=== PATIENT | female | born 1955 | race Caucasian/White ===

== ENCOUNTER 2016-12-11 20:33 | Emergency (ER) | payer MEDICARE, OTHER ==
[2016-12-11 21:04] LABS: #Eosinphils 0.1 thou/uL (0.0-0.7); #Lymphocytes 1.8 thou/uL (1.20-3.40); #Monocytes 0.6 thou/uL (0.11-0.59); #Neutrophils 4.8 thou/uL (1.40-6.50); %Basophils 0.3 % (0.0-1.0); %Eosinophils 1.8 % (0.0-10.0); %Lymphocytes 24.6 % (21.0-51.0); %Monocytes 7.7 % (0.0-10.0); Hematocrit 40.5 % (36.0-47.0); Mean Platelet Volume 7.8 fL (7.4-10.4); Red Blood Cell (RBC) Count 4.17 mill/uL (4.20-5.40); White Blood Cell (WBC) Count 7.3 thou/uL (4.8-10.8)
[2016-12-11 21:18] LABS: ALT (SGPT) 69 U/L (8-55); AST (SGOT) 71 U/L (5-34); Acetaminophen Less than 6.0 mcg/mL (10.0-30.0); Alkaline Phosphatase 95 U/L (40-150); Anion Gap 16 mmol/L (10-20); BUN (Urea Nitrogen) 20 mg/dL (9.8-20.1); Bilirubin, Total 0.8 mg/dL (0.2-1.2); Calc. Creatinine Clearance 0 mL/min (70-130); Calcium 11.1 mg/dL (7.8-10.44); Carbon Dioxide 28 mmol/L (22-29); Chloride 103 mmol/L (98-107); Estimated GFR-MDRD 48; Globulin 2.5 g/dL (2.4-3.5); Protein, Total 6.6 g/dL (6.0-8.3); Salicylate Less than 8.0 mg/dL (15.0-30.0)
[2016-12-12 01:12] LABS: Bilirubin Negative (Negative); Blood, Urine Negative (Negative); Glucose, Urine (Dipstick) Negative (Negative); Ketone, Urine Trace mg/dL (Negative); Nitrite Negative (Negative); Protein, Urine (Dipstick) Negative (Neg-Trace); Urobilinogen 0.2 mg/dL (0.2-1.0)
[2016-12-12 01:18] LABS: Bacteria/HPF None Seen HPF (None Seen); Hyaline Casts/LPF NONE SEEN LPF (0-3 Hyaline); RBC/HPF 0-3 HPF (0-3); Squamous Epithelial 0-3 HPF (0-3)
[2016-12-12 01:20] LABS: Amphetamine Not Detected (NotDetected); Methadone Not Detected (NotDetected); Methamphetamine Not Detected (NotDetected)
== END 2016-12-12 04:21 | disposition home or self-care (01) ==
LOC: ERS 20:33
DX: F41.9 Anxiety disorder, unspecified (principal); I10 Essential (primary) hypertension; E78.5 Hyperlipidemia, unspecified; F31.9 Bipolar disorder, unspecified; Z79.899 Other long term (current) drug therapy
CPT/HCPCS: 36415; 80053; 80306; 80307; 81003; 81015; 82550; 84443; 85025; 87086; 93005

== ENCOUNTER 2017-11-12 20:48 | Observation (INO) | payer MEDICARE ==
[2017-11-12 21:38] LABS: #Eosinphils 0.1 thou/uL (0.0-0.7); #Lymphocytes 0.9 thou/uL (1.20-3.40); #Monocytes 0.6 thou/uL (0.11-0.59); #Neutrophils 5.1 thou/uL (1.40-6.50); %Basophils 0.6 % (0.0-1.0); %Eosinophils 1.8 % (0.0-10.0); %Lymphocytes 12.8 % (21.0-51.0); %Monocytes 9.3 % (0.0-10.0); %Neutrophils 75.5 % (42.0-75.0); Hemoglobin 13.7 g/dL (12.0-16.0); Mean Corpuscular HGB CONC 33.5 g/dL (32.0-36.0); Mean Corpuscular Hemoglobin 31.6 pg (27.0-31.0); Mean Corpuscular Volume 94.5 fL (78.0-98.0); Mean Platelet Volume 7.9 fL (7.4-10.4); Platelet Count 189 thou/uL (130-400); RBC Distribution Width 13.8 % (11.5-14.5); Red Blood Cell (RBC) Count 4.33 mill/uL (4.20-5.40); White Blood Cell (WBC) Count 6.7 thou/uL (4.8-10.8)
[2017-11-12 21:59] LABS: Acetaminophen Less than 6.0 mcg/mL (10.0-30.0); Alcohol Less than 10 mg/dL (Less than 10); Salicylate Less than 8.0 mg/dL (15.0-30.0)
[2017-11-12 22:01] LABS: ALT (SGPT) 35 U/L (8-55); AST (SGOT) 69 U/L (5-34); Albumin 4.2 g/dL (3.5-5.0); Alkaline Phosphatase 82 U/L (40-150); Anion Gap 12 mmol/L (10-20); BUN (Urea Nitrogen) 7 mg/dL (9.8-20.1); Bilirubin, Total 0.7 mg/dL (0.2-1.2); CK (CPK) 1673 U/L (29-168); Calc. Creatinine Clearance 0 mL/min (70-130); Calcium 10.4 mg/dL (7.8-10.44); Carbon Dioxide 27 mmol/L (22-29); Chloride 103 mmol/L (98-107); Estimated GFR-MDRD 83; Globulin 2.2 g/dL (2.4-3.5); Glucose 93 mg/dL (70-105); Protein, Total 6.4 g/dL (6.0-8.3); Sodium 139 mmol/L (136-145)
--- NOTE | 2017-11-12 22:38 | CT ---
HEAD CT NONCONTRAST: 11/12/17 COMPARISON: 04/01/16 INDICATION: Head injury, pain. FINDINGS: There is no acute intracranial hemorrhage, mass effect or midline shift. Ventricular system is normal in size. Calvarium is intact, without evidence of pneumocephalus. IMPRESSION: No acute intracranial hemorrhage or mass effect. POS: [facility]
[2017-11-12 22:47] LABS: Bilirubin Negative (Negative); Blood, Urine Negative (Negative); Clarity CLEAR (Clear); Glucose, Urine (Dipstick) Negative (Negative); Leukocyte Moderate (Negative); Nitrite Negative (Negative); Protein, Urine (Dipstick) Negative (Neg-Trace); Specific Gravity, Urine 1.009 (1.002-1.036); Urobilinogen 0.2 mg/dL (0.2-1.0)
[2017-11-12 22:49] LABS: Bacteria/HPF None Seen HPF (None Seen); Hyaline Casts/LPF 0-3 HYALINE CAST LPF (0-3 Hyaline); Pathc Cast-AUWi Flag 0.29 (0-2.49); Pregnancy Test - Urine (BHCG) Negative (Negative); Pregu Control Background? CLEAR/WHITE (CLR/WHITE); Pregu Control Bar Appear? YES (CONTROL BAR); RBC/HPF 0-3 HPF (0-3); Specific Gravity 1.009 (1.002-1.036); Squamous Epithelial 0-3 HPF (0-3)
[2017-11-12 22:56] LABS: Amphetamine Not Detected (NotDetected); Barbiturates Screen Not Detected (NotDetected); Benzodiazepine Screen Not Detected (NotDetected); Cocaine Metabolite Screen Not Detected (NotDetected); Medtox Control Line Valid? VALID (VALID); Medtox Reader # READER 1; Methadone Not Detected (NotDetected); Methamphetamine Not Detected (NotDetected); Opiate Screen Not Detected (NotDetected); Oxycodone Screen Not Detected (NotDetected); Phencyclidine (PCP) Not Detected (NotDetected); THC/Cannabinoid Screen Not Detected (NotDetected); Tricyclic Screen Not Detected (NotDetected)
[2017-11-13] MEDS ORDERED: Potassium Chloride 20 MEQ TAB ONE (00:29)
[2017-11-13] MEDS ORDERED: Acetaminophen 500 MG TAB ONE (00:29)
[2017-11-13] MEDS ORDERED: Potassium Chloride 20 MEQ in Premix Bag 1 BAG IVPB SCH (00:30)
[2017-11-13] MEDS ORDERED: Sodium Chloride 0.9% 1,000 ML IV SCH (03:00)
[2017-11-13 04:42] VITALS: BMI 26.0
[2017-11-13] MEDS ORDERED: traMADol HCl 50 MG TAB PO PRN (05:01)
[2017-11-13] MEDS ORDERED: Ondansetron HCl/PF 4 MG/2 ML Vial IVP PRN (07:16)
[2017-11-13] MEDS ORDERED: Chloraseptic Spray 180 ml Bottle PO PRN (07:16)
[2017-11-13] MEDS ORDERED: hydrALAZINE 20 MG/ML VIAL SLOW IVP PRN (07:16)
[2017-11-13] MEDS ORDERED: Loperamide HCl 2 MG CAP PO PRN (07:16)
[2017-11-13] MEDS ORDERED: Milk Of Magnesia 30 ML UDCUP PO PRN (07:16)
[2017-11-13] MEDS ORDERED: Mag-Al 1200 mg/1200 mg/30 ML UDCUP PO PRN (07:16)
[2017-11-13] MEDS ORDERED: Sodium Chloride 0.65% Nasal 44 ML BOT EA NARE PRN (07:16)
[2017-11-13] MEDS ORDERED: Senokot 8.6 MG TAB PO PRN (07:16)
[2017-11-13] MEDS ORDERED: Artificial Tears 18 DROP/0.9 ML EA EYE PRN (07:16)
[2017-11-13] MEDS ORDERED: Zolpidem Tartrate 5 MG TAB PO PRN (07:16)
[2017-11-13] MEDS ORDERED: Ondansetron ODT 4 MG TAB PO PRN (07:16)
[2017-11-13] MEDS ORDERED: Eucerin (Mineral Oil/Petrolatum,White) 30 gm Jar TOP PRN (07:16)
[2017-11-13] MEDS ORDERED: Diabetic Tussin 200 MG/10 ML UDCUP PO PRN (07:16)
[2017-11-13] MEDS ORDERED: Loratadine 10 MG TAB PO PRN (07:16)
[2017-11-13] MEDS ORDERED: DULoxetine 30 MG CAP PO SCH (09:00)
[2017-11-13] MEDS: 1/2 NS w/KCL 20 mEq 1,000 ML IV SCH ×2 (09:15→16:17)
[2017-11-13] MEDS: Famotidine 20 MG TAB PO SCH ×2 (09:16→21:16)
[2017-11-13] MEDS: Saccharomyces boulardii 250 MG CAP PO SCH (09:16)
[2017-11-13] MEDS: Acetaminophen 325 MG TAB PO PRN ×2 (10:10→16:16)
--- NOTE | 2017-11-13 10:29 | HP ---
PRIMARY CARE PHYSICIAN: Jonna Zimmerman PA-C. REASON FOR ADMISSION: Rhabdomyolysis. HISTORY OF PRESENT ILLNESS: A 62-year-old female who has underlying history of bipolar disorder as w ell as schizoaffective disorder. She is taking multiple psychiatric medications. Yesterday around 1 1:00 a.m., she fell down at home. She reports that she was in her laundry and she fell over laundry basket and she remained seated in laundry basket for 20 minutes, then she hit her head. She denies a ny loss of consciousness. She was having headaches since the fall. She did not have any nausea or v omiting. Subsequently, the patient was able to get off from the floor and in the noon time, she fell down again and twisted her ankle and subsequently in evening time, she fell down again and twisted h er knee. She was hurting in her knee and ankle on the right side, but she was able to walk without a ny problem. She was not staggering. She did not have any motor weakness. She did not have any sens ory symptoms. She denies any associated chest pain, palpitation, shortness of breath. This patient has underlying psychiatric problem and as per report, the patient has intermittently ana cidal ideation as well as homicidal ideation. She denied any suicidal ideation or homicidal ideation to me this morning, but she reports that she intermittently feels that way. Sometimes, she hears vo ice of her who . She denies any UTI symptoms, though her urinalysis did show find ing suggestive of UTI. The patient reports that about a week ago, she was feeling frequency, dysuria and she did not put any attention to it as well as she was not on any antibiotic therapy. She denie s any diarrhea. She denies any constipation, melena or hematochezia. At this point, the patient fee ls better after emergency room evaluation and treatment. In the emergency room, this patient had CT brain which did not show any acute process. The patient also currently denies any ankle pain or any knee pain on the right side. She was able to walk on the floor after admission. REVIEW OF SYSTEMS: The following complete review of systems was negative, unless otherwise mentioned in the HPI or below: Constitutional: Weight loss or gain, ability to conduct usual activities. Skin: Rash, itching. Eyes: Double vision, pain. ENT/Mouth: Nose bleeding, neck stiffness, pain, tenderness. Cardiovascular: Palpitations, dyspnea on exertion, orthopnea. Respiratory: Shortness of breath, wheezing, cough, hemoptysis, fever or night sweats. Gastrointestinal: Poor appetite, abdominal pain, heartburn, nausea, vomiting, constipation, or diarr hea. Genitourinary: Urgency, frequency, dysuria, nocturia. Musculoskeletal: Pain, swelling. Neurologic/Psychiatric: Anxiety, depression. Allergy/Immunologic: Skin rash, bleeding tendency. Please see my HPI for pertinent positive and negative. All other review of system reviewed and negat arun except as mentioned in the HPI. PAST MEDICAL HISTORY: The patient has history of diet controlled diabetes, hypertension, dyslipidemi a. PAST PSYCHIATRIC HISTORY: Anxiety, depression, bipolar disorder, schizoaffective disorder. Patient has history of inpatient psychiatric admission in [facility]. PAST SURGICAL HISTORY: Appendicectomy, tonsillectomy, cholecystectomy, hysterectomy, history of skin cancer removal, history of surgery for fractured neck. FAMILY HISTORY: The patient is . She lives at home by herself. Her niece is the medical [facility] of [employer] as well as her sister. Her daughter lives in [place]. No family history of coronary a rtery disease, stroke or cancer. SOCIAL HISTORY: The patient lives by herself at home. She smokes about half pack per day. She jono es any alcohol abuse. She denies any other illicit drug abuse. ALLERGIES: CODEINE, MORPHINE, PENICILLIN. CURRENT HOME MEDICATIONS: ProAir HFA 2 puffs q.6 hourly p.r.n., lithium carbonate 300 mg p.o. b.i.d. , risperidone 3 mg p.o. at bedtime, Zoloft 200 mg p.o. daily, trazodone 300 mg p.o. at bedtime, Cymba lta 30 mg p.o. daily. EMERGENCY ROOM COURSE: The patient is given IV fluid, potassium chloride and potassium chloride, K-D ur 40 mEq p.o. and Tylenol 1 gram. PHYSICAL EXAMINATION: VITAL SIGNS: Currently, blood pressure 137/66, pulse 93, respiratory rate 18, temperature 98.2, satu ration 94% on room air, weight 68 kilograms. GENERAL: Patient is currently alert, awake, no obvious acute distress. HEENT: Head: The patient does have right temporal region mild hematoma without any bleeding. Eyes: Pupils round, reactive to light. No nystagmus. ENT: Oropharynx within normal limits. Moist muco us membranes. No oral lesion, no pharyngeal erythema, no exudate. NECK: Supple, no JVD, no thyromegaly, no carotid bruit. LUNGS: Clear to auscultation without any rhonchi or rales. No wheezing. No accessory muscles of re spiration in use. CARDIAC: S1, S2 regular without any murmur. ABDOMEN: Soft, bowel sounds present. Mild discomfort noted in lower part. BACK: No CVA tenderness. EXTREMITIES: Upper extremity, passive movement of all joints are normal. Lower extremity, no edema. Good peripheral pulsation. MUSCULOSKELETAL: The patient's knee examination and ankle examination on the right side is completel y unremarkable. Over there, range of motion is completely normal. SIGNIFICANT LABORATORY DATA AND IMAGING: EKG showing incomplete right bundle branch block pattern, p rolonged QT interval. CT brain negative for any acute intracranial process. CBC: WBC 6.7, hemoglob in 13.7, platelet 189. BMP shows sodium 139, potassium 3.0, chloride 103, carbon dioxide 27, anion g ap 12, BUN 7, creatinine 0.72, glucose 93, calcium 10.4, magnesium 2.2. LFT: AST 69, ALT 35, alkali ne phosphatase 82, albumin 4.2. TSH 1.51. CK 1673. Urinalysis: Leukocyte esterase moderate. Preg blank test negative. Serum drug screen negative. Urine drug screen negative. [place] level 1.60. ASSESSMENT AND PLAN: 1. Frequent fall at home. Patient has temporal hematoma without any intracranial process, without a ny focal neurological deficit or any sequelae clinically on examination. The patient is currently as ymptomatic. The patient injured her ankle and knee on the right side and twisted, but without any cl inical abnormality. On examination, range of motion is completely normal. This patient will need at least one time physical therapy evaluation to see her gait. 2. Rhabdomyolysis, mild without any renal failure, most likely related with her fall and being in on e particular position for a few minutes. Patient is receiving IV fluid. We will repeat total CK lev el. 3. Hypokalemia, replaced in the Emergency Room. Patient will get IV fluid with potassium and will r epeat BMP. Her magnesium level is normal. 4. Asymptomatic bacteriuria. We will send urine culture. The patient does not have any obvious inf ection at this point. For benefit of doubt, we will consider Cipro upon discharge for 5 days. 5. [place] level is little bit high and that is why we will hold on lithium therapy today. 6. Anxiety and depression, bipolar disorder, and schizoaffective disorder. The patient will continu e all her depression medicine including risperidone 3 mg p.o. at bedtime, Zoloft 200 mg p.o. daily, t razodone 300 mg p.o. at bedtime and Cymbalta 30 mg p.o. daily. 7. Deep venous thrombosis prophylaxis not needed, because we are expecting discharge in 24 hours. 8. Gastrointestinal prophylaxis, Pepcid 20 mg p.o. b.i.d. CODE STATUS: The patient is FULL CODE. The patient's niece and the patient's sister is surrogate de cision maker. Disposition plan based on clinical course, likely 24 hours. Plan of care discussed with the patient in detail.
[2017-11-13] MEDS: Ketorolac Tromethamine 30 MG/ML VIAL IVP PRN ×2 (14:35→19:22)
[2017-11-13] MEDS ORDERED: traZODone HCl 150 MG TAB PO SCH ×2 (21:00)
[2017-11-13] MEDS ORDERED: risperiDONE 3 MG TAB PO SCH (21:00)
[2017-11-14] MEDS: Ketorolac Tromethamine 30 MG/ML VIAL IVP PRN ×2 (01:24→09:45)
[2017-11-14] MEDS: 1/2 NS w/KCL 20 mEq 1,000 ML IV SCH ×2 (01:26→09:50)
[2017-11-14 06:49] LABS: #Eosinphils 0.2 thou/uL (0.0-0.7); #Lymphocytes 1.1 thou/uL (1.20-3.40); #Monocytes 0.4 thou/uL (0.11-0.59); #Neutrophils 4.1 thou/uL (1.40-6.50); %Basophils 0.5 % (0.0-1.0); %Eosinophils 3.2 % (0.0-10.0); %Lymphocytes 18.7 % (21.0-51.0); %Monocytes 6.8 % (0.0-10.0); %Neutrophils 70.9 % (42.0-75.0); Hemoglobin 12.4 g/dL (12.0-16.0); Mean Corpuscular HGB CONC 32.3 g/dL (32.0-36.0); Mean Corpuscular Hemoglobin 31.4 pg (27.0-31.0); Mean Platelet Volume 8.2 fL (7.4-10.4); Platelet Count 160 thou/uL (130-400); RBC Distribution Width 13.6 % (11.5-14.5); Red Blood Cell (RBC) Count 3.97 mill/uL (4.20-5.40); White Blood Cell (WBC) Count 5.8 thou/uL (4.8-10.8)
[2017-11-14 07:15] LABS: ALT (SGPT) 28 U/L (8-55); AST (SGOT) 31 U/L (5-34); Albumin 3.7 g/dL (3.5-5.0); Alkaline Phosphatase 72 U/L (40-150); Anion Gap 10 mmol/L (10-20); BUN (Urea Nitrogen) 16 mg/dL (9.8-20.1); Bilirubin, Total 0.2 mg/dL (0.2-1.2); CK (CPK) 415 U/L (29-168); Calc. Creatinine Clearance 92 mL/min (70-130); Calcium 10.2 mg/dL (7.8-10.44); Carbon Dioxide 25 mmol/L (22-29); Chloride 109 mmol/L (98-107); Estimated GFR-MDRD 90; Globulin 1.9 g/dL (2.4-3.5); Glucose 102 mg/dL (70-105); Protein, Total 5.6 g/dL (6.0-8.3); Sodium 139 mmol/L (136-145)
[2017-11-14] MEDS: Saccharomyces boulardii 250 MG CAP PO SCH (09:49)
[2017-11-14] MEDS: Famotidine 20 MG TAB PO SCH (09:49)
--- NOTE | 2017-11-14 10:25 | DIS ---
DATE OF ADMISSION: 11/13/2017 DATE OF DISCHARGE: 11/14/2017 PRIMARY CARE PHYSICIAN: Jonna Zimmerman PA-C DISCHARGE DISPOSITION: Psych facility. PRIMARY DISCHARGE DIAGNOSES: 1. Rhabdomyolysis, improved. 2. Hypokalemia, corrected. 3. Asymptomatic urinary tract infection. SECONDARY DISCHARGE DIAGNOSES: Bipolar disorder, anxiety and depression, hypertension, dyslipidemia, tobacco abuse disorder. PRIMARY PROCEDURE/OPERATION: None. RADIOLOGICAL INVESTIGATION: CT brain is normal. SIGNIFICANT LABORATORY DATA: WBC 5.8, hemoglobin 12.4, platelet 160. Sodium 139, potassium 5.0, BUN 16, creatinine 0.67, CK 415. LFT normal. TSH 1.10. Urinalysis: Leukocyte esterase moderate. [place] drug screen negative. [place] level 1.60. Serum drug screen negative. Urine culture negative. DISCHARGE MEDICATIONS: ProAir HFA 2 puffs q.6 hourly p.r.n., lithium carbonate 300 mg p.o. b.i.d., r isperidone 3 mg p.o. at bedtime, Zoloft 200 mg p.o. daily, trazodone 300 mg p.o. at bedtime, Macrobid 100 mg p.o. b.i.d. for 7 days. CONTRAINDICATIONS: None. CODE STATUS: FULL CODE. INPATIENT CONSULTANTS: JOSE MIGUEL. ALLERGIES: CODEINE, MORPHINE, PENICILLIN. DISCHARGE PLAN: Post hospital, patient should go to inpatient psych facility for psych treatment. HOSPITAL COURSE: A 62-year-old female with above-mentioned medical problem who was admitted by or ye . Please see my HPI for further details. She was brought to the ER for psych evaluation. Kun maynard had routine blood test done which showed rhabdomyolysis. At home, she was having 3 falls and as sh e had minor bruits on her scalp without any intracranial process. She had minor twisting on ankle an d knee, but she did not have any local abnormality on physical examination and she was able to ambula te without any significant pain. The patient has intermittent suicidal ideation and this patient waters s have psychotic thoughts and that is why the patient needs inpatient psychiatric facility. Before anthony maynard send her to psych facility, we corrected her medical problem. Rhabdomyolysis is improved and her p otassium is corrected. She does have asymptomatic UTI and that is why she was given Rocephin while i n hospital. She was given Levaquin while in hospital. On discharge, we are changing to Macrobid. T he patient was given IV fluid. At this point, patient is medically cleared for discharge and [facility] wi ll be consulted and [facility] needs to find psych facility for her. The patient is seen and examined at bedside today. REVIEW OF SYSTEMS: Not reliable with this particular patient because of psychotic thoughts. PHYSICAL EXAMINATION: VITAL SIGNS: Currently, temperature 97.4, pulse 76, respiratory rate 20, blood pressure 167/74, weig ht 143 pounds. GENERAL: The patient is currently alert, awake, no obvious acute distress. HEAD: Normocephalic, atraumatic. EYES: Pupils round, reactive to light. Extraocular muscle intact. ENT: Oropharynx within normal limits. Moist mucous membranes, no oral lesion, no pharyngeal erythem a, no exudate. NECK: Supple, no JVD, no thyromegaly, no carotid bruit. No jugular venous distention. LUNGS: Clear to auscultation. CARDIAC: S1, S2 regular without any murmur. NEUROLOGIC: Nonfocal examination. ABDOMEN: Soft and benign without any suprapubic tenderness. Blood pressure was high by the time of discharge. I think it is related with ongoing IV fluid which we are stopping now and expected to improve blood pressure as well.
--- NOTE | 2017-11-14 10:57 | PDOC.PN ---
- Subjective Encounter Start Date: 11/14/17 Encounter Start Time: 07:45 -: old records requested/rev Patient seen and examined. No new complaints. No overnight events - Objective Resuscitation Status: Resuscitation Status FULL:Full Resuscitation MAR Reviewed: Yes Vital Signs & Weight: Vital Signs (12 hours) Temp Pulse Resp BP BP Pulse Ox 11/14/17 09:49 79 184/77 H 11/14/17 08:00 97.4 F L 76 27 H 183/84 H 90 L 11/14/17 07:00 97.4 F L 76 27 H 183/84 H 90 L 11/14/17 03:42 97.8 F 86 20 167/74 H Weight Admit Weight 142 lb 6.4 oz Weight 143 lb 9.6 oz I&O: 11/13/17 11/14/17 11/15/17 06:59 06:59 06:59 Intake Total 1113 4450 Output Total 400 1000 Balance 713 3450 Result Diagrams: 11/14/17 06:37 11/14/17 06:37 EKG Reviewed by me: Yes (nsr) Phys Exam - Physical Examination Constitutional: NAD HEENT: PERRLA, moist MMs, sclera anicteric Neck: no JVD, supple Respiratory: no wheezing, no rales, no rhonchi Cardiovascular: RRR, no significant murmur, no rub Gastrointestinal: soft, non-tender, no distention, positive bowel sounds Musculoskeletal: no edema, pulses present Neurological: non-focal, normal sensation, moves all 4 limbs Psychiatric: normal affect Skin: no rash, normal turgor Dx/Plan (1) Hypokalemia Code(s): E87.6 - HYPOKALEMIA Status: Acute (2) Rhabdomyolysis Code(s): M62.82 - RHABDOMYOLYSIS Status: Acute (3) UTI (urinary tract infection) Status: Acute (4) Bipolar disorder Code(s): F31.9 - BIPOLAR DISORDER, UNSPECIFIED Status: Chronic (5) Dyslipidemia Code(s): E78.5 - HYPERLIPIDEMIA, UNSPECIFIED Status: Chronic (6) Hypertension Code(s): I10 - ESSENTIAL (PRIMARY) HYPERTENSION Status: Chronic (7) Tobacco abuse Code(s): Z72.0 - TOBACCO USE Status: Chronic - Plan cont current plan of care, continue antibiotics * medication reviewed as below * symptomatic treatment * [facility] * DC IVF * macrobid on discharge Review of Systems - Review of Systems Eyes: negative: Pain, Vision Change, Conjunctivae Inflammation, Eyelid Inflammation, Redness, Other ENT: negative: Ear Pain, Ear Discharge, Nose Pain, Nose Discharge, Nose Congestion, Mouth Pain, Mouth Swelling, Throat Pain, Throat Swelling, Other Respiratory: negative: Cough, Dry, Shortness of Breath, Hemoptysis, SOB with Excertion, Pleuritic Pain, Sputum, Wheezing Cardiovascular: negative: chest pain, palpitations, orthopnea, paroxysmal nocturnal dyspnea, edema, light headedness, other Gastrointestinal: negative: Nausea, Vomiting, Abdominal Pain, Diarrhea, Constipation, Melena, Hematochezia, Other Genitourinary: negative: Dysuria, Frequency, Incontinence, Hematuria, Retention , Other Musculoskeletal: negative: Neck Pain, Shoulder Pain, Arm Pain, Back Pain, Hand Pain, Leg Pain, Foot Pain, Other Skin: negative: Rash, Lesions, Cecil, Bruising, Other - Medications/Allergies Allergies/Adverse Reactions: Allergies Allergy/AdvReac Type Severity Reaction Status Date / Time codeine Allergy Verified 11/13/17 03:29 morphine Allergy Verified 11/13/17 03:29 Penicillins Allergy Verified 11/13/17 03:29 Medications: Current Medications Acetaminophen (Tylenol) 650 mg PO Q4H PRN PRN Reason: Headache/Fever or Pain Last Admin: 11/13/17 16:16 Dose: 650 mg Al Hydroxide/Mg Hydroxide (Maalox) 30 ml PO Q6H PRN PRN Reason: Heartburn or Indigestion Artificial Tears (Tears Naturale) 0 drop EA EYE PRN PRN PRN Reason: Dry Eyes Famotidine (Pepcid) 20 mg PO BID TERE Last Admin: 11/14/17 09:49 Dose: 20 mg Guaifenesin (Robitussin Sf) 200 mg PO Q4H PRN PRN Reason: Cough Hydralazine HCl (Apresoline) 10 mg SLOW IVP Q4H PRN PRN Reason: Systolic BP > 180 Last Admin: 11/14/17 09:49 Dose: 10 mg Ketorolac Tromethamine (Toradol) 15 mg IVP Q6H PRN PRN Reason: Pain Stop: 11/18/17 10:06 Last Admin: 11/14/17 09:45 Dose: 15 mg Loperamide HCl (Imodium) 2 mg PO PRN PRN PRN Reason: Diarrhea/Loose Stools Loratadine (Claritin) 10 mg PO DAILYPRN PRN PRN Reason: Sinus Symptoms Magnesium Hydroxide (Milk Of Magnesium) 30 ml PO DAILYPRN PRN PRN Reason: Constipation Mineral Oil/White Petrolatum (Eucerin Cream) 0 gm TOP BIDPRN PRN PRN Reason: Dry Skin Ondansetron HCl (Zofran Odt) 4 mg PO Q6H PRN PRN Reason: Nausea/Vomiting Ondansetron HCl (Zofran) 4 mg IVP Q6H PRN PRN Reason: Nausea/Vomiting Phenol (Chloraseptic Ward 180 Ml Bot) 0 ml PO PRN PRN PRN Reason: Sore Throat Risperidone (Risperidone) 3 mg PO [facility] Last Admin: 11/13/17 21:16 Dose: 3 mg Saccharomyces Boulardii (Florastor) 250 mg PO DAILY [facility] Last Admin: 11/14/17 09:49 Dose: 250 mg Senna (Senokot) 2 tab PO HSPRN PRN PRN Reason: Constipation Sertraline HCl (Zoloft) 200 mg PO DAILY [facility] Last Admin: 11/14/17 09:49 Dose: 200 mg Sodium Chloride ([place] Nasal Ward 0.65%) 0 ml EA NARE QIDPRN PRN PRN Reason: Nasal Congestion Sodium Chloride (Flush - Normal Saline) 10 ml IVF Q12HR [facility] Last Admin: 11/14/17 09:50 Dose: 10 ml Sodium Chloride (Flush - Normal Saline) 10 ml IVF PRN PRN PRN Reason: Saline Flush Trazodone HCl (Desyrel) 300 mg PO [facility] Last Admin: 11/13/17 21:15 Dose: 300 mg Zolpidem Tartrate (Ambien) 5 mg PO HSPRN PRN PRN Reason: Insomnia
[2017-11-14 13:17] VITALS: BP 183/84; TEMP 98.7
== END 2017-11-14 13:19 | disposition home or self-care (01) ==
LOC: ERS 20:48 → 2NO 11-13 02:35
PROVIDERS: ADMIT Internal Medicine; ATTEND Internal Medicine
DX: M62.82 Rhabdomyolysis (principal); F25.0 Schizoaffective disorder, bipolar type; E11.9 Type 2 diabetes mellitus without complications; I10 Essential (primary) hypertension; E78.5 Hyperlipidemia, unspecified; E87.6 Hypokalemia; F41.8 Other specified anxiety disorders; N39.0 Urinary tract infection, site not specified; F17.210 Nicotine dependence, cigarettes, uncomplicated; Z79.899 Other long term (current) drug therapy; Z88.0 Allergy status to penicillin; Z88.5 Allergy status to narcotic agent; W19.XXXA Unspecified fall, initial encounter
CPT/HCPCS: 70450; 80053; 80178; 80306; 80307; 81025; 82550 ×2; 83735 ×2; 84443; 85025; 87086; 93005; 96361; 96365; 96366 ×3; 96367; 96375 ×2; 96376 ×2; 97139 ×2; 99285; G0378 ×2; 36415; 81003; 81015; A4216; J0360; J1885; J1956; J3480

== ENCOUNTER 2017-12-01 00:08 | Emergency (ER) | payer MEDICARE ==
[2017-12-01] MEDS ORDERED: Ketorolac Tromethamine 30 MG/ML VIAL ONE (01:16)
[2017-12-01] MEDS ORDERED: Albuterol Sulfate 2.5 mg/3 ml Neb ONE (01:21)
[2017-12-01 01:39] LABS: #Eosinphils 0.1 thou/uL (0.0-0.7); #Lymphocytes 1.3 thou/uL (1.20-3.40); #Monocytes 0.5 thou/uL (0.11-0.59); #Neutrophils 8.2 thou/uL (1.40-6.50); %Basophils 0.3 % (0.0-1.0); %Eosinophils 0.7 % (0.0-10.0); %Monocytes 5.3 % (0.0-10.0); %Neutrophils 80.7 % (42.0-75.0); Mean Corpuscular HGB CONC 34.3 g/dL (32.0-36.0); Mean Corpuscular Hemoglobin 32.1 pg (27.0-31.0); Mean Corpuscular Volume 93.5 fL (78.0-98.0); Mean Platelet Volume 7.7 fL (7.4-10.4); Platelet Count 222 thou/uL (130-400); RBC Distribution Width 13.3 % (11.5-14.5); Red Blood Cell (RBC) Count 4.36 mill/uL (4.20-5.40); White Blood Cell (WBC) Count 10.2 thou/uL (4.8-10.8)
[2017-12-01 01:41] LABS: Bilirubin Negative (Negative); Blood, Urine Negative (Negative); Clarity CLEAR (Clear); Glucose, Urine (Dipstick) Negative (Negative); Leukocyte Moderate (Negative); Nitrite Negative (Negative); Protein, Urine (Dipstick) Negative (Neg-Trace); Specific Gravity, Urine 1.004 (1.002-1.036); Urobilinogen 0.2 mg/dL (0.2-1.0)
[2017-12-01 01:44] LABS: Bacteria/HPF None Seen HPF (None Seen); Hyaline Casts/LPF 0-3 HYALINE CAST LPF (0-3 Hyaline); RBC/HPF 0-3 HPF (0-3); Squamous Epithelial None Seen HPF (0-3)
[2017-12-01 01:58] LABS: ALT (SGPT) 15 U/L (8-55); AST (SGOT) 14 U/L (5-34); Albumin 4.6 g/dL (3.5-5.0); Alkaline Phosphatase 85 U/L (40-150); Anion Gap 13 mmol/L (10-20); BUN (Urea Nitrogen) 11 mg/dL (9.8-20.1); Bilirubin, Total 0.3 mg/dL (0.2-1.2); Calc. Creatinine Clearance 0 mL/min (70-130); Calcium 10.8 mg/dL (7.8-10.44); Carbon Dioxide 24 mmol/L (22-29); Chloride 107 mmol/L (98-107); Estimated GFR-MDRD 84; Globulin 2.4 g/dL (2.4-3.5); Glucose 109 mg/dL (70-105); Lipase 25 U/L (8-78); Potassium 4.3 mmol/L (3.5-5.1); Sodium 140 mmol/L (136-145)
[2017-12-01] MEDS ORDERED: predniSONE 20 MG TAB ONE (03:11)
--- NOTE | 2017-12-01 08:47 | CT ---
PRELIMINARY REPORT/[facility]/EMERGENTY AFTER-HOURS PROCEDURE CT Abdomen and Pelvis Without Intravenous Contrast EXAM DATE/TIME: 12/01/2017 1:28 AM CLINICAL HISTORY: 62 years old, female; Pain; Abdominal pain; Generalized; Patient HX: Abd pain, dx with "kidney stones the size of half dollars" PT singing amazing agustín in bed, PT rates her pain as a 25/10. Manic bipol ar HX. PT states that she was dc from [facility] today per patient TECHNIQUE: Axial computed tomography images of the abdomen and pelvis without intravenous contrast. Coronal reformatted images were created and reviewed. COMPARISON: No relevant prior studies available. FINDINGS: Lower thorax: Calcified granuloma within the lingula. ABDOMEN: Liver: Normal. No mass. Gallbladder and bile ducts: Gallbladder not identified - surgical clips present in fossa. Pancreas: Normal. No ductal dilation. Spleen: Normal. No splenomegaly. Adrenals: Normal. No mass. Kidneys and ureters: Rounded 1 mm stones bilateral kidneys. No evidence of stones within the ureters or bladder. Stomach and bowel: Mild - moderate amount retained stool material throughout nondilated colon. Appendix: Sutures and surgical clips along the cecum- suspect appendectomy. PELVIS: Bladder: See Kidneys And Ureters Finding. Reproductive: Uterus is not identified. ABDOMEN and PELVIS: Intraperitoneal space: Small surgical clip by stomach. Bones/joints: Chronic degenerative changes of the lumbar spine. Soft tissues: Unremarkable. Vasculature: Chronic atherosclerotic calcification of the vasculature. Lymph nodes: Normal. No enlarged lymph nodes. IMPRESSION: 1. Bilateral renal nonobstructive stones. No evidence of obstructive uropathy or obstructive nephropa thy. 2. Findings suggest mild-moderate degree of constipation. Thank you for allowing us to participate in the care of your patient. Dictated and Authenticated by: Calvin Rodriguez MD 12/01/2017 2:01 AM Central Time ([place] & [place]) FINAL REPORT CT STONE PROTOCOL: Date: 12/01/17 IMPRESSION: I agree with the preliminary report provided by Devan. 1. There are tiny punctate nonobstructing stones within the kidneys. No ureteral calculus or hydrone phrosis is evident. 2. There is nodular contour of the liver, suspicious for mild cirrhosis. 3. Spleen is enlarged, measuring 14.7 cm. 4. Cholecystectomy. 5. Mild amount of retained stool within the colon. 6. Other chronic findings as above. POS: [facility]
--- NOTE | 2017-12-01 09:38 | RAD ---
PA AND LATERAL CHEST: Date: 12/01/17 INDICATION: Cough with abdominal pain. IMPRESSION: There is a calcified granuloma within the left lower lobe which is stable to a comparison from 2016. The lungs are mildly hyperinflated, but clear. Heart size is normal. No acute osseous abnormality is evident. No definite acute cardiopulmonary abnormality is evident. POS: [facility]
== END 2017-12-01 04:35 | disposition home or self-care (01) ==
LOC: ERS 00:08
DX: N39.0 Urinary tract infection, site not specified (principal); J45.901 Unspecified asthma with (acute) exacerbation; I10 Essential (primary) hypertension; E78.5 Hyperlipidemia, unspecified; F31.9 Bipolar disorder, unspecified; F17.210 Nicotine dependence, cigarettes, uncomplicated; E11.9 Type 2 diabetes mellitus without complications; Z79.4 Long term (current) use of insulin; Z79.899 Other long term (current) drug therapy
CPT/HCPCS: 36415; 71046; 74176; 80053; 81003; 81015; 83690; 85025; 85379; 87086; 93005; 94640; J1885; J7506; J7611; J7620

== ENCOUNTER 2017-12-01 14:43 | Observation (INO) | payer MEDICARE ==
[2017-12-01 15:45] LABS: Bilirubin Negative (Negative); Blood, Urine Negative (Negative); Clarity CLEAR (Clear); Glucose, Urine (Dipstick) Negative (Negative); Leukocyte Moderate (Negative); Nitrite Negative (Negative); Protein, Urine (Dipstick) 30 mg/dL (Neg-Trace); Urobilinogen 0.2 mg/dL (0.2-1.0)
[2017-12-01 15:49] LABS: Bacteria/HPF None Seen HPF (None Seen); Hyaline Casts/LPF 0-3 HYALINE CAST LPF (0-3 Hyaline); Pathc Cast-AUWi Flag 0.29 (0-2.49); RBC/HPF 0-3 HPF (0-3); Squamous Epithelial 0-3 HPF (0-3); WBC/HPF 21-50 HPF (0-3)
[2017-12-01] MEDS ORDERED: predniSONE 20 MG TAB ONE (16:08)
[2017-12-01 16:23] LABS: #Lymphocytes 0.7 thou/uL (1.20-3.40); #Monocytes 0.5 thou/uL (0.11-0.59); #Neutrophils 6.1 thou/uL (1.40-6.50); %Eosinophils 0.3 % (0.0-10.0); %Lymphocytes 9.8 % (21.0-51.0); %Monocytes 6.7 % (0.0-10.0); %Neutrophils 83.2 % (42.0-75.0); Mean Corpuscular HGB CONC 33.8 g/dL (32.0-36.0); Mean Corpuscular Volume 94.7 fL (78.0-98.0); Mean Platelet Volume 7.9 fL (7.4-10.4); Platelet Count 224 thou/uL (130-400); RBC Distribution Width 13.5 % (11.5-14.5); Red Blood Cell (RBC) Count 4.36 mill/uL (4.20-5.40); White Blood Cell (WBC) Count 7.4 thou/uL (4.8-10.8)
[2017-12-01 16:48] LABS: ALT (SGPT) 13 U/L (8-55); AST (SGOT) 13 U/L (5-34); Albumin 4.4 g/dL (3.5-5.0); Alkaline Phosphatase 82 U/L (40-150); Anion Gap 12 mmol/L (10-20); BUN (Urea Nitrogen) 13 mg/dL (9.8-20.1); Bilirubin, Total 0.3 mg/dL (0.2-1.2); Calc. Creatinine Clearance 0 mL/min (70-130); Calcium 11.1 mg/dL (7.8-10.44); Carbon Dioxide 25 mmol/L (22-29); Chloride 105 mmol/L (98-107); Estimated GFR-MDRD 76; Globulin 2.6 g/dL (2.4-3.5); Glucose 98 mg/dL (70-105); Lipase 21 U/L (8-78); Magnesium 2.4 mg/dL (1.6-2.6); Potassium 4.2 mmol/L (3.5-5.1); Sodium 138 mmol/L (136-145)
[2017-12-01 16:52] LABS: Troponin I Less than 0.010 ng/mL (< 0.028)
--- NOTE | 2017-12-01 16:54 | RAD ---
AP VIEW OF THE CHEST: 12/01/17 INDICATION: Cough. COMPARISON: Prior exam dated 07/11/17. IMPRESSION: There is stable chronic lung changes. Calcified granuloma within the left lower lobe is stable. Heart size is normal appearing. No acute osseous abnormalities noted POS: [facility]
[2017-12-01] MEDS ORDERED: Labetalol HCl 100 MG/20 ML VIAL ONE (20:23)
[2017-12-01 21:01] VITALS: BMI 26.2
[2017-12-01] MEDS ORDERED: Ondansetron ODT 4 MG TAB SL PRN (21:23)
[2017-12-01] MEDS ORDERED: Acetaminophen 325 MG TAB PO PRN (21:23)
[2017-12-01] MEDS ORDERED: Ondansetron HCl/PF 4 MG/2 ML Vial IVP PRN (21:23)
[2017-12-01] MEDS ORDERED: traMADol HCl 50 MG TAB PO PRN (21:27)
[2017-12-01] MEDS ORDERED: traZODone HCl 150 MG TAB PO PRN (21:29)
[2017-12-01] MEDS ORDERED: Lorazepam 0.5 MG TAB PO PRN (21:34)
[2017-12-01] MEDS ORDERED: Dextrose 50% Abboject 50 ML SYRINGE SLOW IVP PRN (21:35)
[2017-12-01] MEDS ORDERED: HumaLOG 300 UNITS/3 ML VIAL SC PRN (21:35)
[2017-12-01] MEDS ORDERED: Dextrose 5% in Water 1,000 ML IV PRN (21:35)
[2017-12-02] MEDS ORDERED: Lorazepam 2 MG/ML VIAL SLOW IVP SCH (00:30)
[2017-12-02] MEDS ORDERED: predniSONE 20 MG TAB PO SCH (08:00)
[2017-12-02] MEDS ORDERED: risperiDONE 1 MG TAB PO SCH (09:00)
[2017-12-02] MEDS ORDERED: Lidocaine 5% Patch TD SCH (09:00)
[2017-12-02] MEDS: oxyCODONE/Acetaminophen 5 mg/325 mg Tablet PO PRN ×2 (09:31→16:00)
[2017-12-02] MEDS: hydrOXYzine 25 MG TAB PO SCH ×2 (10:16→17:50)
--- NOTE | 2017-12-02 11:08 | PDOC.EVN ---
Event Note - Event Note Event Note: h&p [id number]
--- NOTE | 2017-12-02 11:42 | RAD ---
PA AND LATERAL CHEST: Date: 12/01/17 COMPARISON: Prior day's study. HISTORY: Chest pain. Cough. FINDINGS: Heart size and mediastinum are within normal limits. Lungs are clear of any infiltrative process. No rib fractures are identified. No pleural effusions. There are arthritic changes of the spine. IMPRESSION: No active intrathoracic disease. POS: [facility]
--- NOTE | 2017-12-02 11:47 | HP ---
CHIEF COMPLAINT: Nausea. HISTORY OF PRESENT ILLNESS: This is a 62-year-old female with a known history of bipolar disorder wh o was recently discharged from [facility] approximately 2 days prior to admiss ion at our facility. The patient tells me that she has multiple issues that are going on with her th at needed to be managed in our facility, namely that she has urinary tract infection, pneumonia, and had fallen with a lot of musculoskeletal pain that was not evaluated while she was at the psychiatric hospital. The patient also initially complained in the emergency department of nausea; however, sub sequently also complained of hunger and was able to tolerate 3 boxed meals without difficulty, vomiti ng or continued nausea. At the time of my evaluation, the patient tells me the above and also informs me that she will have h er cigarette that she has everyday. REVIEW OF SYSTEMS: As per HPI. Constitutional: The patient endorses fevers and chills for the last 2 weeks and tells me that she had a temperature of 106 two days ago. Cardiovascular: No overt ches t pain or pressure. No palpitations. Respiratory: The patient tells me that she has been "having t rouble breathing" due to her pneumonia. Gastrointestinal: Endorses nausea, although has not been ob served to have any. Denies any abdominal pain, diarrhea or constipation. Genitourinary: Denies any dysuria. Musculoskeletal: Complains of pain in various places that are not consistent. Please note that the patient is overall a very, very poor historian and I doubt the accuracy of revie w of systems as described above. PAST MEDICAL HISTORY: As per HPI. 1. Bipolar disorder. 2. Diet controlled diabetes. 3. Hypertension. 4. Hyperlipidemia. 5. Chronic obstructive pulmonary disease. 6. Status post appendectomy. 7. Status post tonsillectomy 8. Status post cholecystectomy. 9. Status post hysterectomy. 10. Status post skin cancer removal several times. 10. Status post surgery for a "fractured neck." HOME MEDICATIONS: The patient's home list currently includes the following: Trazodone 200 mg p.o. a t bedtime, risperidone 4 mg p.o. daily, prednisone 20 mg p.o. daily, hydroxyzine 100 mg p.o. t.i.d., sertraline 200 mg p.o. daily, [place] carbonate 300 mg p.o. q.a.m. SOCIAL HISTORY: Active pack tobacco use. Denies any alcohol use. Denies any illicit drug use. Kalli arently, she has a daughter in [place] who is her active medical power of patent prosecution attorney. PHYSICAL EXAMINATION: GENERAL: The patient is awake, alert, conversant, in no acute distress, seated in the hospital bed, states that she feels "cold". HEENT: Normocephalic, atraumatic. Equal ocular motions are intact, moist mucous membranes. CARDIOVASCULAR: S1, S2. No murmurs, rubs or gallops. Pulses 2+ bilateral upper extremities, no pit ting pedal edema. RESPIRATORY: Reasonable air movement. No conversational dyspnea. No wheezes, rales or rhonchi. ABDOMEN: Positive bowel sounds, soft, nontender to palpation. MUSCULOSKELETAL: Moving all 4 extremities equally. Able to ambulate with a walker. No assistance o therwise. LABORATORY DATA AND IMAGING: WBC 7.4, hemoglobin 14.0, hematocrit 41.3, platelets 224. Sodium 138, potassium 4.2, chloride 105, bicarbonate 25, BUN 13, creatinine 0.77, glucose 98. Lactic acid 0.8, c alcium 11.1, magnesium 2.4, total bilirubin 0.3, AST 13, ALT 13, alkaline phosphatase 82. Troponin l ess than 0.01. Total protein 7.0, albumin 4.4, lipase 21. UA is significant for 30 of protein, mode rate leukoesterase, 21-50 WBCs without any urine bacteria seen. ASSESSMENT AND PLAN: This is a 62-year-old female complaining of nausea and other multiple complaint s. 1. Nausea appears to have self resolved as the patient is tolerating an oral diet. 2. Recent history supposedly of pneumonias. I suspect more likely that the patient had chronic obst ructive pulmonary disease exacerbation. We will continue her prednisone in a taper fashion. The pat chrissy is currently satting well on room air, does not appear to have an acute exacerbation at this poi nt in time. We will obtain a chest x-ray. 3. Urinary tract infection with a UA that is not particularly remarkable. Urine culture is pending. Empiric Levaquin has been given. 4. Bipolar disorder. I suspect this is likely the largest active issue for the patient. The patien t tells me that her medications have been recently adjusted and that her bipolar disease is "in remis sukumar". 5. Active tobacco use. I have reviewed with the patient that it is not advised for her to continue any tobacco usage while she has chronic obstructive pulmonary disease, particularly she is currently hospitalized. 6. Musculoskeletal pain. We will go ahead and image. The patient does have complaints of neck and shoulder pain status post a fall for which she is unable to give further details. We will also utili ze anti-inflammatories, tramadol and lidocaine patch as needed to help with pain control. Of note, t he patient appears to be ambulating without significant difficulty using her walker, which appears to be her baseline. 7. Activity as tolerated. 8. Deep venous thrombosis prophylaxis with enoxaparin.
--- NOTE | 2017-12-02 11:58 | RAD ---
CERVICAL SPINE SERIES 3 VIEWS: Date: 12/01/17 HISTORY: Neck injury. FINDINGS: Vertebral bodies are normal in height. The C7 vertebral body is not well visualized on this study. Th ere is an old appearing spinous process injury of C7. There is no soft tissue swelling. Facets are in normal alignment. IMPRESSION: No evidence of fracture. C7 is not well visualized on this exam. POS: [facility]
[2017-12-02 16:09] VITALS: BP 134/73; TEMP 97.3
[2017-12-02] MEDS ORDERED: traZODone HCl 50 MG TAB PO SCH (21:00)
[2017-12-02] MEDS ORDERED: Lidocaine Patch Removal 1 EACH TOP SCH (21:00)
--- NOTE | 2017-12-08 19:12 | EKG ---
Test Reason : Blood Pressure : / mmHG Vent. Rate : 100 BPM Atrial Rate : 100 BPM P-R Int : 174 ms QRS Dur : 096 ms QT Int : 374 ms P-R-T Axes : 072 034 071 degrees QTc Int : 482 ms Normal sinus rhythm Possible Left atrial enlargement Incomplete right bundle branch block Prolonged QT Abnormal ECG Confirmed by YULIET CHIN M.D. ([id number]), publication editor KAVIN FLYNN ([id number]) on 12/08/2017 7:12:00 PM Referred By: Confirmed By:YULIET CHIN M.D.
== END 2017-12-02 19:25 | disposition home or self-care (01) ==
LOC: ERS 14:43 → 3SE 18:34 → T4-A 20:47
PROVIDERS: ADMIT Internal Medicine; ATTEND Internal Medicine
DX: R11.0 Nausea (principal); J44.9 Chronic obstructive pulmonary disease, unspecified; N39.0 Urinary tract infection, site not specified; F31.9 Bipolar disorder, unspecified; E78.5 Hyperlipidemia, unspecified; I10 Essential (primary) hypertension; E11.9 Type 2 diabetes mellitus without complications; F17.200 Nicotine dependence, unspecified, uncomplicated; Z88.0 Allergy status to penicillin; Z88.5 Allergy status to narcotic agent; Z79.899 Other long term (current) drug therapy
CPT/HCPCS: 71045; 71046; 72040; 74176; 80053 ×2; 82962; 83605; 83690; 83735; 84484; 85025 ×2; 85379; 87040; 87086; 93005; 94640; 96361; 96365; 96374; 96375 ×2; 99285; 99406; G0378 ×2; 36415; 36416; 81003; 81015; J1885; J1956; J2060; J7506; J7611; J7620

== ENCOUNTER 2017-12-03 13:39 | Observation (INO) | payer MEDICARE ==
[2017-12-03 14:19] LABS: #Lymphocytes 0.5 thou/uL (1.20-3.40); #Monocytes 0.5 thou/uL (0.11-0.59); #Neutrophils 9.5 thou/uL (1.40-6.50); %Basophils 0.3 % (0.0-1.0); %Eosinophils 0.1 % (0.0-10.0); %Lymphocytes 5.1 % (21.0-51.0); %Monocytes 4.5 % (0.0-10.0); Hemoglobin 13.3 g/dL (12.0-16.0); Mean Corpuscular HGB CONC 34.4 g/dL (32.0-36.0); Mean Corpuscular Volume 93.2 fL (78.0-98.0); Mean Platelet Volume 7.8 fL (7.4-10.4); Platelet Count 184 thou/uL (130-400); RBC Distribution Width 13.6 % (11.5-14.5); Red Blood Cell (RBC) Count 4.15 mill/uL (4.20-5.40); White Blood Cell (WBC) Count 10.6 thou/uL (4.8-10.8)
[2017-12-03 14:38] LABS: ALT (SGPT) 13 U/L (8-55); AST (SGOT) 15 U/L (5-34); Albumin 4.2 g/dL (3.5-5.0); Alkaline Phosphatase 82 U/L (40-150); Anion Gap 14 mmol/L (10-20); BUN (Urea Nitrogen) 15 mg/dL (9.8-20.1); Bilirubin, Total 0.2 mg/dL (0.2-1.2); Calc. Creatinine Clearance 0 mL/min (70-130); Calcium 10.2 mg/dL (7.8-10.44); Carbon Dioxide 23 mmol/L (22-29); Chloride 104 mmol/L (98-107); Estimated GFR-MDRD 79; Globulin 2.4 g/dL (2.4-3.5); Glucose 139 mg/dL (70-105); Potassium 3.7 mmol/L (3.5-5.1); Protein, Total 6.6 g/dL (6.0-8.3); Sodium 137 mmol/L (136-145)
--- NOTE | 2017-12-03 14:42 | RAD ---
AP VIEW OF THE CHEST: INDICATION: History of cough. COMPARISON: Prior exam dated 12/01/17. FINDINGS: Chronic lung changes are stable. Areas of subsegmental volume loss are now present within the right lung base. Calcified granuloma is seen within the left lower lobe. No acute osseous abnormality is evident. IMPRESSION: Areas of subsequently atelectasis right lower lobe. The remainder of the examination is unchanged fr om the prior. POS: [facility]
--- NOTE | 2017-12-03 16:09 | CT ---
CT BRAIN NONCONTRAST: HISTORY: A 62-year-old female with acute head trauma from fall. FINDINGS: There is no midline shift or any other mass effect. There is no evidence of acute intracranial hemor rhage, large cortical infarct, obstructive hydrocephalus, or extraaxial fluid collection. The calvar ium is intact. IMPRESSION: No acute intracranial findings. jn [] POS: [facility]
--- NOTE | 2017-12-03 16:10 | CT ---
CT CERVICAL SPINE NONCONTRAST: HISTORY: A 62-year-old female status post acute cervical trauma from fall. FINDINGS: There are no jumped or perched facets. There is no evidence of acute fracture. The vertebral body h eights are maintained. There is no prevertebral soft tissue swelling. IMPRESSION: No evidence of acute fracture or acute traumatic subluxation. yuki [] POS: [facility]
[2017-12-03 18:08] LABS: Lactic Acid 1.4 mmol/L (0.5-2.2)
[2017-12-03 18:09] LABS: Bilirubin Negative (Negative); Blood, Urine Negative (Negative); Clarity CLEAR (Clear); Glucose, Urine (Dipstick) Negative (Negative); Leukocyte Trace (Negative); Nitrite Negative (Negative); Protein, Urine (Dipstick) Negative (Neg-Trace); Urobilinogen 0.2 mg/dL (0.2-1.0)
[2017-12-03 18:10] LABS: Bacteria/HPF None Seen HPF (None Seen); Hyaline Casts/LPF 0-3 HYALINE CAST LPF (0-3 Hyaline); RBC/HPF 0-3 HPF (0-3); Squamous Epithelial None Seen HPF (0-3); WBC/HPF 0-3 HPF (0-3)
[2017-12-03 18:12] LABS: Specific Gravity, Urine 1.004 (1.002-1.036)
[2017-12-03 18:22] LABS: Amphetamine Not Detected (NotDetected); Barbiturates Screen Not Detected (NotDetected); Benzodiazepine Screen Not Detected (NotDetected); Cocaine Metabolite Screen Not Detected (NotDetected); Medtox Control Line Valid? VALID (VALID); Medtox Reader # READER 1; Methadone Not Detected (NotDetected); Methamphetamine Not Detected (NotDetected); Opiate Screen Not Detected (NotDetected); Oxycodone Screen Not Detected (NotDetected); Phencyclidine (PCP) Not Detected (NotDetected); THC/Cannabinoid Screen Not Detected (NotDetected); Tricyclic Screen Not Detected (NotDetected)
[2017-12-03] MEDS ORDERED: Ondansetron HCl/PF 4 MG/2 ML Vial IVP PRN (19:45)
[2017-12-03] MEDS ORDERED: Acetaminophen 325 MG TAB PO PRN (19:45)
[2017-12-03] MEDS ORDERED: Dextrose 5% in Water 1,000 ML IV PRN (19:45)
[2017-12-03] MEDS ORDERED: Dextrose 50% Abboject 50 ML SYRINGE SLOW IVP PRN (19:45)
[2017-12-03] MEDS ORDERED: HumaLOG 300 UNITS/3 ML VIAL SC PRN ×2 (19:45)
[2017-12-03] MEDS: Famotidine 20 MG TAB PO SCH (20:04)
[2017-12-03] MEDS: HYDROcodone/Acetaminophen 5/325 mg Tablet PO PRN (20:04)
[2017-12-03 20:28] LABS: CKMB 4.6 ng/mL (0-6.6)
[2017-12-03 20:41] LABS: Troponin I Less than 0.010 ng/mL (< 0.028)
[2017-12-03] MEDS: hydrOXYzine Pamoate 25 mg Capsule PO SCH (21:16)
[2017-12-03] MEDS: Lithium Carbonate 150 MG CAP PO SCH (21:16)
[2017-12-03] MEDS: traZODone HCl 50 MG TAB PO SCH (21:16)
[2017-12-03 22:18] VITALS: BMI 25.7
[2017-12-04 04:27] LABS: #Lymphocytes 0.9 thou/uL (1.20-3.40); #Monocytes 0.7 thou/uL (0.11-0.59); #Neutrophils 6.5 thou/uL (1.40-6.50); %Basophils 0.2 % (0.0-1.0); %Eosinophils 0.4 % (0.0-10.0); %Lymphocytes 11.3 % (21.0-51.0); %Monocytes 9.1 % (0.0-10.0); %Neutrophils 79.1 % (42.0-75.0); Hemoglobin 12.7 g/dL (12.0-16.0); Mean Corpuscular Hemoglobin 31.3 pg (27.0-31.0); Mean Corpuscular Volume 94.9 fL (78.0-98.0); Mean Platelet Volume 8.2 fL (7.4-10.4); Platelet Count 204 thou/uL (130-400); RBC Distribution Width 13.6 % (11.5-14.5); Red Blood Cell (RBC) Count 4.06 mill/uL (4.20-5.40); White Blood Cell (WBC) Count 8.2 thou/uL (4.8-10.8)
[2017-12-04 04:38] LABS: Hemoglobin A1c 4.7 % (4.0-6.0)
[2017-12-04] MEDS: HYDROcodone/Acetaminophen 5/325 mg Tablet PO PRN ×3 (04:45→20:14)
[2017-12-04 04:56] LABS: Anion Gap 12 mmol/L (10-20); BUN (Urea Nitrogen) 18 mg/dL (9.8-20.1); Calc. Creatinine Clearance 78 mL/min (70-130); Calcium 10.4 mg/dL (7.8-10.44); Carbon Dioxide 27 mmol/L (22-29); Chloride 109 mmol/L (98-107); Estimated GFR-MDRD 76; Glucose 87 mg/dL (70-105); Magnesium 2.3 mg/dL (1.6-2.6); Potassium 4.2 mmol/L (3.5-5.1); Sodium 144 mmol/L (136-145)
[2017-12-04 04:59] LABS: CKMB 1.9 ng/mL (0-6.6); Troponin I Less than 0.010 ng/mL (< 0.028)
[2017-12-04] MEDS: Lidocaine 5% Patch TD SCH (08:08)
[2017-12-04] MEDS: Famotidine 20 MG TAB PO SCH ×2 (08:10→20:13)
[2017-12-04] MEDS: risperiDONE 1 MG TAB PO SCH (08:10)
[2017-12-04] MEDS: predniSONE 20 MG TAB PO SCH (08:11)
[2017-12-04] MEDS: Lithium Carbonate 150 MG CAP PO SCH ×2 (08:12→20:13)
[2017-12-04] MEDS: hydrOXYzine Pamoate 25 mg Capsule PO SCH ×3 (08:12→20:13)
[2017-12-04] MEDS: Ondansetron ODT 4 MG TAB PO PRN (14:06)
[2017-12-04] MEDS: traZODone HCl 50 MG TAB PO SCH (20:13)
[2017-12-04] MEDS: Lidocaine Patch Removal TOP SCH (20:20)
[2017-12-05] MEDS: HYDROcodone/Acetaminophen 5/325 mg Tablet PO PRN ×4 (00:09→20:59)
--- NOTE | 2017-12-05 04:11 | CON ---
DATE OF CONSULTATION: 12/04/2017 HISTORY OF PRESENT ILLNESS: Meliza Bustos is a 62-year-old white female with a longstanding history of bipolar disorder. She states she was just discharged from [facility] 2 days prior to this admission. She states she has had cough productive of sputum. Two weeks ago, she also stated that she had a fall. She also had a fall recently, tripping over a laundry basket, hitting her head and stated that she was knocked out afterwards. She denies any chest discomfort. She denies any shortness of breath. She came to the hospital for nausea, but was able to eat in the emergency room without any nausea or vomiting. Last evening, she had an episode of bradycardia with a 3-second pause. She states that at that time she was in bed and has been having continual pain from nephrolithiasis. PAST MEDICAL HISTORY: Diabetes, hypertension, hyperlipidemia, COPD, bipolar disorder, nephrolithiasis. OPERATIONS: Tonsils, appendix, cholecystectomy, hysterectomy, surgery for "fractured neck." MEDICATIONS: At home include Vistaril 100 mg t.i.d., lidocaine patch 2 patches daily, lithium carbonate 300 mg q.a.m., prednisone 20 daily, risperidone 4 mg daily, sertraline 200 mg daily, Desyrel 200 mg at bedtime. ALLERGIES: PENICILLIN, MORPHINE, CODEINE. SOCIAL HISTORY: She smokes. PHYSICAL EXAMINATION: VITAL SIGNS: Blood pressure 183/87, pulse of 98. HEENT: PERRL. NECK: Supple. LUNGS: Chest is clear. CARDIAC: S1 and S2 normal, without any S3 or S4, or murmurs. ABDOMEN: Normal bowel sounds, without tenderness. EXTREMITIES: Revealed no clubbing, cyanosis, or edema. NEUROLOGIC: Grossly intact. SKIN: Warm and dry. LABORATORY DATA: EKG reveals normal sinus rhythm with left axis deviation. CBC is unremarkable. D-dimer 0.33. Sodium 137, potassium 3.7, chloride 104, carbon dioxide 23, BUN 13, creatinine 0.75. AST and ALT are normal. Cardiac enzymes were unremarkable. IMPRESSION: 1. Sinus arrhythmia with three second sinus pause. It does not sound like she was symptomatic with this. It could be due to vasovagal reaction from her constant pain from nephrolithiasis. 2. Multiple falls; however, I am uncertain if she had true syncope with those. 3. Hypertension. 4. Hyperlipidemia. 5. Bipolar disorder. 6. Smoker. PLAN: Echocardiogram will be performed to assess left ventricular function. The patient will continue to be monitored. Consideration should be given to 30- day monitor at the time of discharge if she does not have any further significant arrhythmias. Certainly, beta blocking agents should be avoided as well as calcium channel blockers that can affect AV conduction. MTDD
[2017-12-05] MEDS: hydrOXYzine Pamoate 25 mg Capsule PO SCH ×3 (08:17→20:59)
[2017-12-05] MEDS: Lidocaine 5% Patch TD SCH (08:17)
[2017-12-05] MEDS: predniSONE 20 MG TAB PO SCH (08:18)
[2017-12-05] MEDS: Lithium Carbonate 150 MG CAP PO SCH ×2 (08:18→20:59)
[2017-12-05] MEDS: risperiDONE 1 MG TAB PO SCH (08:18)
[2017-12-05] MEDS: Famotidine 20 MG TAB PO SCH ×2 (08:19→20:59)
[2017-12-05] MEDS: Ondansetron ODT 4 MG TAB PO PRN ×2 (09:05→15:20)
--- NOTE | 2017-12-05 14:18 | PDOC.PN ---
- Subjective Encounter Start Date: 12/04/17 Encounter Start Time: 15:00 no change overnigh,t pt probalby at baseline. Cardiolgy eval pending, had a 3 sec pause overnight while sleeping. No F/C, no n/V/d/c, no syncope or presyncope Pt walking downstairs repeatedly - Objective Resuscitation Status: Resuscitation Status FULL:Full Resuscitation MAR Reviewed: Yes Vital Signs & Weight: Vital Signs (12 hours) Temp Pulse Resp BP BP Pulse Ox 12/05/17 10:50 98.8 F 84 20 127/60 92 L 12/05/17 08:00 97.6 F 94 16 12/05/17 07:38 98.5 F 92 20 123/59 L 96 12/05/17 04:00 97.6 F 94 16 147/67 H 93 L Weight Weight 140 lb 6.4 oz I&O: 12/04/17 12/05/17 12/06/17 06:59 06:59 06:59 Intake Total 680 1330 Output Total 500 300 Balance 180 1030 Result Diagrams: 12/04/17 03:30 12/04/17 03:30 Additional Labs: Accuchecks 12/05/17 12/05/17 12/04/17 11:26 06:07 20:15 POC Glucose 131 H 100 125 H 12/04/17 16:18 POC Glucose 121 H Phys Exam - Physical Examination Constitutional: NAD HEENT: PERRLA, moist MMs, sclera anicteric, oral pharynx no lesions Neck: no nodes, no JVD, supple, full ROM Respiratory: no wheezing, no rales, no rhonchi, clear to auscultation bilateral Cardiovascular: RRR, no significant murmur, no rub Gastrointestinal: soft, non-tender, no distention, positive bowel sounds Musculoskeletal: edema present Neurological: non-focal, normal sensation, moves all 4 limbs Lymphatic: no nodes Deviation from normal: flat affect, mild delusions, no hallucinations Skin: no rash, normal turgor, cap refill <2 seconds Dx/Plan (1) Syncope and collapse Code(s): R55 - SYNCOPE AND COLLAPSE Status: Acute (2) Bipolar disorder Code(s): F31.9 - BIPOLAR DISORDER, UNSPECIFIED Status: Chronic Qualifiers: Active/Remission status: currently active Current bipolar episode type: mixed Current episode severity: unspecified Qualified Code(s): F31.60 - Bipolar disorder, current episode mixed, unspecified (3) Dyslipidemia Code(s): E78.5 - HYPERLIPIDEMIA, UNSPECIFIED Status: Chronic (4) Hypertension Code(s): I10 - ESSENTIAL (PRIMARY) HYPERTENSION Status: Chronic Qualifiers: Hypertension type: essential hypertension Qualified Code(s): I10 - Essential (primary) hypertension (5) Tobacco abuse Code(s): Z72.0 - TOBACCO USE Status: Chronic - Plan cont current plan of care * .follow up on cardiology recommendations. continue to observe on tele for now
[2017-12-05] MEDS: traZODone HCl 50 MG TAB PO SCH (21:00)
[2017-12-05] MEDS: Lidocaine Patch Removal TOP SCH (21:01)
[2017-12-06] MEDS: HYDROcodone/Acetaminophen 5/325 mg Tablet PO PRN ×3 (01:12→18:48)
[2017-12-06] MEDS: hydrOXYzine Pamoate 25 mg Capsule PO SCH ×2 (08:52→15:16)
[2017-12-06] MEDS: Lidocaine 5% Patch TD SCH (08:52)
[2017-12-06] MEDS: Famotidine 20 MG TAB PO SCH (08:53)
[2017-12-06] MEDS: risperiDONE 1 MG TAB PO SCH (08:53)
[2017-12-06] MEDS: predniSONE 20 MG TAB PO SCH (08:53)
[2017-12-06] MEDS: Lithium Carbonate 150 MG CAP PO SCH (08:55)
--- NOTE | 2017-12-06 12:16 | DIS ---
DATE OF ADMISSION: 12/03/2017 DATE OF DISCHARGE: 12/06/2017 PRIMARY CARE PHYSICIAN: None. DISCHARGE DIAGNOSES: 1. Sinus arrhythmia. 2. Syncope and collapse. 3. Bipolar disorder, marginally controlled. 4. Hyperlipidemia. 5. Ongoing tobacco abuse. 6. Chronic back pain. CONSULTATIONS: Cardiology. PROCEDURES: A 30-day monitor placement. HISTORY AND PHYSICAL: Ms. Bustos is a 62-year-old female who was admitted by me on 12/03/2017 a fter being found in her neighbor's yard having passed out unresponsive. EMS brought her to the emerg ency department for evaluation. Here, her workup was negative and we were called for admission. HOSPITAL COURSE: The patient was seen and examined by me in the Emergency Department, she was placed in observation and started on telemetry monitoring. Serial cardiac biomarkers were obtained and wer e negative. Cardiology was consulted. Overnight 12/03/2017 to 12/04/2017, the patient had a 3-4 second pause on her telemetry without any i ntervention while she was sleeping. She was asymptomatic. She was followed by Cardiology and underw ent echocardiogram. This ordered on 12/04/2017, performed on 12/05/2017. Echo was unremarkable. She had no further pauses and was set up with a 30-day monitor and cleared fo r discharge by Cardiology today 12/06/2017. The patient was seen and examined on the day of discharge. Discharge plan and disposition discussed with patient at the bedside. DISCHARGE MEDICATIONS: 1. Hydroxyzine 100 mg p.o. t.i.d. 2. Lidocaine patch 2 patch transdermal daily. 3. [place] carbonate 300 mg p.o. q.a.m. and 600 mg p.o. q.p.m. 4. Prednisone 20 mg daily to resume. 5. Risperidone 4 mg daily. 6. Zoloft 200 mg daily. 7. Trazodone 200 mg p.o. at bedtime. DISCHARGE ACTIVITY: As tolerated. DISCHARGE DIET: Heart healthy diet recommended. DISCHARGE CONDITION: Stable. DISPOSITION: The patient has been discharged to home via private vehicle. Followup appointment with Dr. Meyers in 3-4 weeks after a 30-day monitoring.
[2017-12-06 15:15] VITALS: BP 143/64; TEMP 98.9
--- NOTE | 2017-12-08 20:30 | EKG ---
Test Reason : FALL Blood Pressure : / mmHG Vent. Rate : 099 BPM Atrial Rate : 099 BPM P-R Int : 152 ms QRS Dur : 098 ms QT Int : 368 ms P-R-T Axes : 031 004 025 degrees QTc Int : 472 ms * Pediatric ECG Analysis * Normal sinus rhythm Left axis deviation Borderline Prolonged QT Confirmed by OKSANA BANGURA, HILARIO ([id number]), slot editor KAVIN FLYNN ([id number]) on 12/08/2017 8:30:16 PM Referred By: EITAN Confirmed By:HILARIO GANDHI MD
== END 2017-12-06 20:10 | disposition home or self-care (01) ==
LOC: ERS 13:39 → 2SW 16:30
PROVIDERS: ADMIT Internal Medicine Infectious Disease; ATTEND Internal Medicine Infectious Disease
DX: I49.8 Other specified cardiac arrhythmias (principal); R55 Syncope and collapse; F31.9 Bipolar disorder, unspecified; E78.5 Hyperlipidemia, unspecified; G89.29 Other chronic pain; M54.9 Dorsalgia, unspecified; F17.210 Nicotine dependence, cigarettes, uncomplicated; Z79.899 Other long term (current) drug therapy
CPT/HCPCS: 70450; 71045; 72125; 80048; 80053; 80306; 82553 ×2; 82962 ×4; 83036; 83605; 83735; 84484 ×2; 85025 ×2; 85379; 87040; 93005; 93306; 96365; 96366; 97116; 97139 ×6; 99285; 99406; G0378 ×3; G8978; G8979; G8980; G8987; G8988; G8989; 36415; 36416; 81003; 81015; 96361; J1956; J7506; Q0162; Q0177

== ENCOUNTER 2017-12-09 14:40 | Emergency (ER) | payer MEDICARE | END 2017-12-09 15:13 | disposition home or self-care (01) | LOC: ERS 14:40 | DX: Z00.00 Encounter for general adult medical examination without abnormal findings (principal); M79.89 Other specified soft tissue disorders; E78.5 Hyperlipidemia, unspecified; F31.9 Bipolar disorder, unspecified; F17.210 Nicotine dependence, cigarettes, uncomplicated; Z79.899 Other long term (current) drug therapy | CPT/HCPCS: 99281 ==

== ENCOUNTER 2017-12-10 03:16 | Emergency (ER) | payer MEDICARE ==
[2017-12-10 04:59] LABS: #Eosinphils 0.3 thou/uL (0.0-0.7); #Lymphocytes 1.3 thou/uL (1.20-3.40); #Monocytes 0.6 thou/uL (0.11-0.59); #Neutrophils 6.4 thou/uL (1.40-6.50); %Basophils 0.2 % (0.0-1.0); %Lymphocytes 15.1 % (21.0-51.0); %Monocytes 7.2 % (0.0-10.0); %Neutrophils 74.5 % (42.0-75.0); Hemoglobin 12.8 g/dL (12.0-16.0); Mean Corpuscular Hemoglobin 31.6 pg (27.0-31.0); Mean Corpuscular Volume 95.8 fL (78.0-98.0); Mean Platelet Volume 8.3 fL (7.4-10.4); Platelet Count 174 thou/uL (130-400); RBC Distribution Width 14.3 % (11.5-14.5); Red Blood Cell (RBC) Count 4.04 mill/uL (4.20-5.40); White Blood Cell (WBC) Count 8.6 thou/uL (4.8-10.8)
[2017-12-10 05:04] LABS: ALT (SGPT) 13 U/L (8-55); AST (SGOT) 9 U/L (5-34); Albumin 3.7 g/dL (3.5-5.0); Alkaline Phosphatase 75 U/L (40-150); Anion Gap 12 mmol/L (10-20); BUN (Urea Nitrogen) 8 mg/dL (9.8-20.1); Bilirubin, Total 0.3 mg/dL (0.2-1.2); CK (CPK) 41 U/L (29-168); Calc. Creatinine Clearance 0 mL/min (70-130); Calcium 9.4 mg/dL (7.8-10.44); Carbon Dioxide 23 mmol/L (22-29); Chloride 112 mmol/L (98-107); Estimated GFR-MDRD 78; Glucose 88 mg/dL (70-105); Potassium 3.6 mmol/L (3.5-5.1); Protein, Total 5.7 g/dL (6.0-8.3); Sodium 143 mmol/L (136-145)
[2017-12-10 05:07] LABS: CKMB 2.7 ng/mL (0-6.6); Troponin I Less than 0.010 ng/mL (< 0.028)
[2017-12-10] MEDS ORDERED: Ibuprofen 200 MG TAB ONE (06:04)
[2017-12-10 06:35] LABS: Bilirubin Negative (Negative); Blood, Urine Negative (Negative); Clarity CLEAR (Clear); Glucose, Urine (Dipstick) Negative (Negative); Leukocyte Moderate (Negative); Nitrite Negative (Negative); Protein, Urine (Dipstick) Negative (Neg-Trace); Specific Gravity, Urine 1.006 (1.002-1.036); Urobilinogen 0.2 mg/dL (0.2-1.0)
[2017-12-10 06:39] LABS: Hyaline Casts/LPF 0-3 HYALINE CAST LPF (0-3 Hyaline); Squamous Epithelial 0-3 HPF (0-3)
[2017-12-10 07:17] LABS: RBC/HPF 0-3 HPF (0-3)
[2017-12-10 07:18] LABS: Bacteria/HPF Rare-Few HPF (None Seen)
== END 2017-12-10 07:23 | disposition home or self-care (01) ==
LOC: ERS 03:16
DX: M54.9 Dorsalgia, unspecified (principal); M25.532 Pain in left wrist; E11.9 Type 2 diabetes mellitus without complications; I10 Essential (primary) hypertension; E78.5 Hyperlipidemia, unspecified; F31.9 Bipolar disorder, unspecified; F17.210 Nicotine dependence, cigarettes, uncomplicated; Z79.899 Other long term (current) drug therapy; Z79.4 Long term (current) use of insulin; Z71.6 Tobacco abuse counseling
CPT/HCPCS: 36415; 80053; 81003; 81015; 82553; 84484; 85025; 93005; 99406

== ENCOUNTER 2017-12-30 17:29 | Inpatient (IN) | payer MEDICARE ==
[2017-12-30 18:33] LABS: #Eosinphils 0.2 thou/uL (0.0-0.7); #Lymphocytes 0.5 thou/uL (1.20-3.40); #Monocytes 0.4 thou/uL (0.11-0.59); #Neutrophils 11.4 thou/uL (1.40-6.50); %Eosinophils 1.3 % (0.0-10.0); %Monocytes 3.5 % (0.0-10.0); %Neutrophils 91.2 % (42.0-75.0); Hemoglobin 13.3 g/dL (12.0-16.0); Mean Corpuscular HGB CONC 31.5 g/dL (32.0-36.0); Mean Corpuscular Hemoglobin 28.9 pg (27.0-31.0); Mean Corpuscular Volume 91.9 fL (78.0-98.0); Mean Platelet Volume 8.4 fL (7.4-10.4); Platelet Count 313 thou/uL (130-400); Red Blood Cell (RBC) Count 4.58 mill/uL (4.20-5.40); White Blood Cell (WBC) Count 12.5 thou/uL (4.8-10.8)
[2017-12-30 18:45] LABS: ALT (SGPT) Less than 7 U/L (8-55); AST (SGOT) 5 U/L (5-34); Albumin 3.4 g/dL (3.5-5.0); Alkaline Phosphatase 91 U/L (40-150); Anion Gap 30 mmol/L (10-20); BUN (Urea Nitrogen) 123 mg/dL (9.8-20.1); Bilirubin, Total 0.4 mg/dL (0.2-1.2); Calc. Creatinine Clearance 0 mL/min (70-130); Calcium 9.6 mg/dL (7.8-10.44); Chloride 103 mmol/L (98-107); Estimated GFR-MDRD 6; Globulin 2.2 g/dL (2.4-3.5); Glucose 98 mg/dL (70-105); Lipase 32 U/L (8-78); Potassium 4.2 mmol/L (3.5-5.1); Protein, Total 5.6 g/dL (6.0-8.3); Sodium 137 mmol/L (136-145)
[2017-12-30 18:48] LABS: CKMB 1.6 ng/mL (0-6.6); Troponin I Less than 0.010 ng/mL (< 0.028)
[2017-12-30 18:48] LABS: Acetaminophen Less than 6.0 mcg/mL (10.0-30.0); Alcohol Less than 10 mg/dL (Less than 10); CK (CPK) 20 U/L (29-168); Salicylate Less than 8.0 mg/dL (15.0-30.0)
[2017-12-30 18:48] LABS: Carbon Dioxide 8 mmol/L (22-29)
--- NOTE | 2017-12-30 19:05 | RAD ---
RADIOGRAPH CHEST 1 VIEW: HISTORY: 62-year-old hypotensive female unable to ambulate. FINDINGS: There are no air space densities, pulmonary edema, pneumothorax, or cardiomegaly. The lateral costop hrenic angles are sharp. IMPRESSION: No acute cardiopulmonary findings. yuki POS: [facility]
[2017-12-30] MEDS ORDERED: Acetaminophen 325 MG TAB PO PRN (19:23)
[2017-12-30] MEDS ORDERED: Guaifenesin DM 100-10/5 ML UDCUP PO PRN (19:23)
[2017-12-30] MEDS ORDERED: Ondansetron HCl/PF 4 MG/2 ML Vial IVP PRN (19:23)
[2017-12-30] MEDS ORDERED: Sodium Bicarbonate 150 MEQ in Dextrose 5% in Water 1,000 ML IV SCH (19:30)
[2017-12-30 19:47] LABS: Bilirubin Moderate (Negative); Blood, Urine Trace (Negative); Glucose, Urine (Dipstick) Negative (Negative); Leukocyte Negative (Negative); Nitrite Negative (Negative); Protein, Urine (Dipstick) 100 mg/dL (Neg-Trace); Urobilinogen 0.2 mg/dL (0.2-1.0)
[2017-12-30 19:54] LABS: Clarity CLOUDY (Clear)
[2017-12-30 19:56] LABS: Specific Gravity, Urine 1.025 (1.002-1.036)
[2017-12-30 19:57] LABS: Bacteria/HPF 3+ HPF (None Seen); Squamous Epithelial 0-3 HPF (0-3); Yeast-All Forms 1+ HPF (None Seen)
[2017-12-30 19:58] LABS: Hyaline Casts/LPF 0-3 HYALINE CAST LPF (0-3 Hyaline); Other Casts/LPF 0-3 FINELY GRAN LPF (0-3 Hyaline)
[2017-12-30 20:00] LABS: Amphetamine Not Detected (NotDetected); Barbiturates Screen Not Detected (NotDetected); Benzodiazepine Screen Not Detected (NotDetected); Cocaine Metabolite Screen Detected (NotDetected); Medtox Control Line Valid? VALID (VALID); Medtox Reader # READER 4; Methadone Not Detected (NotDetected); Methamphetamine Not Detected (NotDetected); Opiate Screen Not Detected (NotDetected); Oxycodone Screen Not Detected (NotDetected); Phencyclidine (PCP) Detected (NotDetected); THC/Cannabinoid Screen Not Detected (NotDetected); Tricyclic Screen Not Detected (NotDetected)
--- NOTE | 2017-12-30 20:04 | CT ---
CT BRAIN WITHOUT CONTRAST: History: Altered mental status. FINDINGS: Comparison is made with exam of 12-03-17. No evidence of acute infarct, hemorrhage, midline shift, or abnormal extraaxial fluid collections are seen. The ventricular size is normal and the basilar cisterns patent. The bony calvarium is intact. There is mild mucosal disease in the paranasal sinuses. IMPRESSION: No CT evidence of acute intracranial process. POS: [facility]
[2017-12-30] MEDS ORDERED: Cefepime 2 GM VIAL ONE (21:20)
[2017-12-30 21:36] LABS: Base Excess-Venous -15.8 mmol/L (0 (+/- 2.5)); Bicarbonate (HCO3v) 12.4 mmol/L (1.0-85.0); CO2 Tension (PvCO2) 36.7 mmHg (41.0-51.0); Calcium, Ionized 1.31 mmol/L (1.12-1.32); Hemoglobin - Calc 12.1 g/dL (12.0-18.0); O2 Tension (PvO2) 37.4 mmHg (35.0-45.0); Potassium 4.5 mmol/L (3.4-4.7); T. Carbon Dioxide 13.5 mmol/L (1.0-85.0); pH (Venous) 7.136 (7.35-7.45); vO2 Saturation-calc 55.1 % (94-98)
--- NOTE | 2017-12-31 00:02 | HP ---
DATE OF ADMISSION: 12/30/2017 REASON FOR ADMISSION: Acute renal failure, severe metabolic acidosis, possible sepsis, severe deconditioning and acute encephalopathy. HISTORY OF PRESENT ILLNESS: Please note majority of this history is obtained by talking to ER physician, Dr. Calvo, as the patient is not fully oriented. Per ER records and physician, the patient's nondenominational members called her multiple times when she did not turn up to nondenominational this morning. They in turn called EMS to do a welfare check on her. When EMS arrived, the patient was on the floor and was covered with feces. She was not oriented. She was very lethargic and could not get up. She was brought to emergency room here. On arrival here, the patient was found to have had a BUN of 123, creatinine of 7.24 with serum bicarbonate of 8. The patient currently states she has had nausea, vomiting and was unable to eat. She also has had diarrhea. She says all of these have been going on for 2 weeks or so. The patient was discharged from the hospital on the 6th of this month with normal creatinine. PAST MEDICAL AND SURGICAL HISTORY: History of bipolar disorder, likely schizophrenia, diet controlled diabetes, hypertension, dyslipidemia, COPD, appendectomy, tonsillectomy, cholecystectomy, hysterectomy, skin cancer removed , femoral fracture. CURRENT MEDICATIONS: Please note, the patient cannot recall any of her medication. From her recent discharge, the patient is on hydroxyzine 100 mg 3 times daily, lithium 300 mg p.o. q.a.m., prednisone 20 mg daily, risperidone 4 mg daily, sertraline 200 mg daily, trazodone 200 mg p.o. at bedtime, Lidoderm transdermal patch 5% patch daily. ALLERGIES: Allergic to CODEINE, MORPHINE and PENICILLIN. PERSONAL HISTORY: Smokes half pack a day. Does not abuse alcohol or drugs. The patient states she stays alone. FAMILY HISTORY: Both parents have had stroke and are . Mother in her 60s apparently. Again, the patient is a very poor historian. CODE STATUS: Full. Power of precinct captain is her daughter, Ms. Singh. Per prior records, she apparently lives in [place]. REVIEW OF SYSTEMS: Cannot be obtained as the patient is not oriented. PHYSICAL EXAMINATION: GENERAL: The patient is a 62-year-old female who is currently lethargic and is not oriented. VITAL SIGNS: Blood pressure 96/34, pulse 101 per minute, respiratory rate 24 per minute, temperature 97.2 degrees Fahrenheit, saturating 93% on room air. NECK: Supple. No elevated JVD. HEENT: Extraocular muscles intact. Pupils reacting to light. Oral cavity, mucous membranes are dry. Tongue is coated. CARDIOVASCULAR: S1, S2 heard. Regular rhythm. RESPIRATORY: Air entry 1+ bilateral. Scattered rhonchi plus. No rales. ABDOMEN: Soft. Bowel sounds heard. No tenderness, rigidity or guarding. EXTREMITIES: No peripheral edema or calf tenderness. VASCULAR: Peripheral pulses are 1+ bilateral. No ischemic ulcerations or gangrene. CENTRAL NERVOUS SYSTEM: No gross focal deficits noted. The patient is very lethargic and is not oriented. PSYCHIATRIC: No obvious hallucinations or delusions. LABORATORY AND X-RAY FINDINGS: White count of 12, H and H 13 and 42, platelet count 313,000, MCV is 91, RDW is 15 with 91% neutrophils. Serum bicarbonate is 8, BUN 123, creatinine 7.24, serum glucose 98. AST, ALT and alkaline phosphatase within normal limits. Albumin is 3.4. CK-MB 1.6. Ammonia is 37. Troponin I less than 0.01. Lipase is 32. TSH 3.45. CK level of 20. Serum drug screen is negative. Chest x-ray done shows no acute cardiopulmonary abnormalities. The CT brain official results are pending at present. EKG done shows sinus tachycardia at 111 beats per minute. There is slight peaking of T waves. CLINICAL IMPRESSION AND PLAN: The patient will be admitted to [facility] for acute renal failure with severe metabolic acidosis. She will be on D5 water with 150 mEq of sodium bicarbonate. Dr. Chandler has been informed about the patient by Dr. Calvo. We will obtain a lithium level stat along with blood, urine and stool cultures including Clostridium difficile. The patient will be on high protein renal diet and Nepro 1 can 3 times daily. The patient appears to be severely deconditioned and will obtain PT, OT evaluations in the morning. If the patient's renal function were to worsen, likely she will need dialysis. Her creatinine was normal just 3 weeks back when she got discharged from here. We will accurately check I's and O's. Code status is full for now. I have tried to contact her daughter, Ms. Singh over the phone. I am unable to do so. [facility]
[2017-12-31] MEDS: Docusate 100 MG CAP PO SCH ×3 (00:40→20:53)
[2017-12-31] MEDS: Heparin 5,000 UNITS/ML VIAL SC SCH ×3 (00:40→20:53)
--- NOTE | 2017-12-31 03:02 | CON ---
DATE OF CONSULTATION: 12/30/2017 CONSULTING PHYSICIAN: Dr. Calvo from ER. REASON FOR CONSULTATION: Acute kidney injury, metabolic acidosis. REASON FOR ADMISSION: Altered mentation and feeling weakness. HISTORY OF PRESENT ILLNESS: A 62-year-old female with history of bipolar disorder, hypertension, hyp erlipidemia, COPD, who came to the hospital with above complaints and Nephrology was consulted for el evated creatinine and acute kidney injury. The patient is a poor historian and not able to give much history. The patient denies any nausea, vomiting, no chest pain, no diarrhea, no fever or chills, n o abdominal pain, no shortness of breath. PAST MEDICAL HISTORY: Positive for bipolar disorder, type 2 diabetes, hypertension, hyperlipidemia, COPD . PAST SURGICAL HISTORY: Appendectomy, tonsillectomy, cholecystectomy, hysterectomy, skin cancer remov al. HOME MEDICATIONS: Include trazodone, Risperdal, prednisone, hydroxyzine, sertraline, and lithium. ALLERGIES: PENICILLIN, MORPHINE, CODEINE. SOCIAL HISTORY: She smokes few cigarettes per day. No alcohol or illicit drug abuse. FAMILY HISTORY: No history of kidney disease. REVIEW OF SYSTEMS: Could not be obtained due to confusion. PHYSICAL EXAMINATION: GENERAL: This is an elderly female in no apparent distress. VITAL SIGNS: Temperature 98.6, pulse 70, respiratory rate 18, blood pressure 91/61. HEENT: Atraumatic, normocephalic. Oral mucosa dry. NECK: Supple, no masses. CARDIOVASCULAR: S1, S2 heard. Rate and rhythm regular. RESPIRATORY: Clear. GASTROINTESTINAL: Abdomen is soft. MUSCULOSKELETAL: 1+ edema. DERMATOLOGIC: No skin rash. NEUROLOGIC: Alert, slightly confused. PSYCHIATRIC: Not assessed. LABORATORY DATA: Hemoglobin is 13.3, potassium 4.5, bicarbonate 8, BUN 123, creatinine 7.2. ASSESSMENT AND PLAN: 1. Acute kidney injury most likely volume depletion. Agree with hydration. Check renal ultrasound. 2. Edema, controlled. 3. Hypertension, stable. 4. Metabolic acidosis. Continue hydration. 5. Mild leukocytosis. 6. . 7. Mild hypoalbuminemia. No acute indication for dialysis. Continue supportive care and we will have a close monitor. Avoid nephrotoxins. Thank you for the consult.
[2017-12-31 04:05] LABS: #Eosinphils 0.1 thou/uL (0.0-0.7); #Lymphocytes 0.6 thou/uL (1.20-3.40); #Monocytes 0.6 thou/uL (0.11-0.59); #Neutrophils 9.3 thou/uL (1.40-6.50); %Eosinophils 1.2 % (0.0-10.0); %Lymphocytes 5.4 % (21.0-51.0); %Monocytes 5.9 % (0.0-10.0); %Neutrophils 87.6 % (42.0-75.0); Hemoglobin 11.1 g/dL (12.0-16.0); Mean Corpuscular HGB CONC 32.4 g/dL (32.0-36.0); Mean Corpuscular Hemoglobin 29.6 pg (27.0-31.0); Mean Corpuscular Volume 91.2 fL (78.0-98.0); Mean Platelet Volume 8.3 fL (7.4-10.4); Platelet Count 293 thou/uL (130-400); RBC Distribution Width 14.7 % (11.5-14.5); Red Blood Cell (RBC) Count 3.77 mill/uL (4.20-5.40); White Blood Cell (WBC) Count 10.6 thou/uL (4.8-10.8)
[2017-12-31 04:26] LABS: Albumin 2.9 g/dL (3.5-5.0); Anion Gap 21 mmol/L (10-20); BUN (Urea Nitrogen) 117 mg/dL (9.8-20.1); BUN/Creatinine Ratio 20.49; Calc. Creatinine Clearance 10 mL/min (70-130); Calcium 9.2 mg/dL (7.8-10.44); Carbon Dioxide 15 mmol/L (22-29); Chloride 105 mmol/L (98-107); Estimated GFR-MDRD 8; Glucose 109 mg/dL (70-105); Potassium 3.2 mmol/L (3.5-5.1); Sodium 138 mmol/L (136-145)
[2017-12-31] MEDS: Sodium Chloride 0.9% 1,000 ML IV SCH ×2 (05:44→16:21)
--- NOTE | 2017-12-31 08:08 | ULT ---
VENOUS DUPLEX SONOGRAM BILATERAL LOWER EXTREMITIES: History Bilateral leg pain and edema. FINDINGS: Each common femoral vein and greater saphenous junction are evaluated along with each femoral, deep f emoral, popliteal, and posterior tibial vein. There is good color and spectral Doppler flow, aure sukumar, and augmentation. IMPRESSION: No sonographic evidence of deep vein thrombosis within either lower extremity. POS: [facility]
--- NOTE | 2017-12-31 08:23 | CON ---
DATE OF CONSULTATION: 12/31/2017 CONSULTING PHYSICIAN: Gersonist . REASON FOR CONSULTATION: IMCU placement. HISTORY OF PRESENT ILLNESS: This is a 62-year-old female with bipolar disorder and schizophrenia who presented with altered mental status. She is a very poor historian. She was noted to have acute renal failure. The etiology of that is not clear. The patient is absolutely no help whatsoever in giving history. PAST MEDICAL HISTORY: 1. Bipolar disorder. 2. Tobacco abuse. 3. Diabetes mellitus. 4. Hypertension. 5. Hyperlipidemia. 6. Chronic obstructive pulmonary disease. PAST SURGICAL HISTORY: Appendectomy, tonsillectomy, cholecystectomy, hysterectomy, skin cancer surgery. MEDICATIONS PRIOR TO ADMISSION: Recent discharge indicates she is on hydroxyzine, lithium, prednisone, risperidone, sertraline, trazodone, and Lidoderm patches. ALLERGIES: CODEINE, MORPHINE, PENICILLIN. SOCIAL HISTORY: Smokes half pack per day. Denies alcohol or drug use, but her drug screen was positive for PCP and cocaine. FAMILY MEDICAL HISTORY: Remarkable for stroke. REVIEW OF SYSTEMS: Basically cannot be obtained because the patient is uncooperative. PHYSICAL EXAMINATION: VITAL SIGNS: Temperature 98.2, pulse 100, respirations 20, O2 sat 96%, blood pressure 113/32. GENERAL: She will awaken. She will answer in short sentences. HEENT: Pupils react. Sclerae icteric. Oropharynx clear. NECK: No JVD, no bruits. LUNGS: Clear to auscultation without wheezing or rhonchi. CARDIAC: S1, S2 regular without audible murmur, rub or gallop. ABDOMEN: Soft, nontender, nondistended. No hepatosplenomegaly. EXTREMITIES: No clubbing, cyanosis, or edema. NEUROLOGIC: Grossly intact throughout. LABORATORY AND X-RAY FINDINGS: Sodium 130, potassium 3.2, chloride 105, CO2 15 , BUN 117, creatinine 5.7, glucose 109. CPK was 20, albumin 2.9. TSH 3.45. [place] level was 1.2. Urine drug screen positive for cocaine and PCP. ASSESSMENT: 1. Acute renal failure - etiology thought to be volume depletion. 2. Positive drug screen. 3. History of hypertension. 4. History of diabetes mellitus. 5. History of bipolar disorder and perhaps schizophrenia. PLAN: 1. I agree with continued hydration, perhaps you could be even more aggressive with that than what you are at the current time. 2. She is likely stable to be able to move out to the telemetry unit. She does not appear to be in any danger of impending respiratory failure or cardiac instability. 70 minutes time. Of that, >50% spent with patient or on patients hospital unit MTDD
--- NOTE | 2017-12-31 13:04 | PDOC.PN ---
- Subjective Encounter Start Date: 12/31/17 Encounter Start Time: 08:40 Subjective: awake, not oriented -: not in distress - Objective Resuscitation Status: Resuscitation Status FULL:Full Resuscitation MAR Reviewed: Yes Vital Signs & Weight: Vital Signs (12 hours) Temp Pulse Resp BP BP Pulse Ox 12/31/17 10:00 91 100/39 L 96 12/31/17 09:10 95 12/31/17 09:00 78 63/20 L 83 L 12/31/17 08:00 98.7 F 92 16 82/27 L 94/32 L 94 L 12/31/17 03:54 98.2 F 100 20 113/32 L 96 Weight Weight 129 lb 4.8 oz I&O: 12/30/17 12/31/17 01/01/18 06:59 06:59 06:59 Intake Total 600 Output Total 75 Balance 525 Result Diagrams: 12/31/17 03:55 12/31/17 03:55 Additional Labs: Accuchecks 12/30/17 17:46 POC Glucose 102 Phys Exam - Physical Examination HEENT: PERRLA dry mucosa Neck: no JVD, supple Respiratory: no wheezing, no rales Cardiovascular: RRR, no significant murmur Gastrointestinal: soft, non-tender, positive bowel sounds Musculoskeletal: no edema, pulses present Neurological: non-focal, moves all 4 limbs Dx/Plan (1) Acute renal failure Status: Acute Qualifiers: Acute renal failure type: unspecified Qualified Code(s): N17.9 - Acute kidney failure, unspecified (2) Metabolic acidosis Code(s): E87.2 - ACIDOSIS Status: Acute (3) Gastroenteritis Code(s): K52.9 - NONINFECTIVE GASTROENTERITIS AND COLITIS, UNSPECIFIED Status : Acute (4) Acute encephalopathy Code(s): G93.40 - ENCEPHALOPATHY, UNSPECIFIED Status: Acute (5) Substance abuse Code(s): F19.10 - OTHER PSYCHOACTIVE SUBSTANCE ABUSE, UNCOMPLICATED Status: Acute Comment: pcp and cocaine, but denies (6) UTI (urinary tract infection) Status: Acute Qualifiers: Urinary tract infection type: acute cystitis Hematuria presence: without hematuria Qualified Code(s): N30.00 - Acute cystitis without hematuria (7) Bipolar disorder Code(s): F31.9 - BIPOLAR DISORDER, UNSPECIFIED Status: Chronic Qualifiers: Active/Remission status: remission status unspecified Qualified Code(s): F31.9 - Bipolar disorder, unspecified (8) Hypertension Code(s): I10 - ESSENTIAL (PRIMARY) HYPERTENSION Status: Chronic Qualifiers: Hypertension type: essential hypertension (9) Tobacco abuse Code(s): Z72.0 - TOBACCO USE Status: Chronic - Plan iv hydration -: creatinine down to 5.7 this am from 7.2 -: usg venous doppler is -ve -: prognosis guarded -: cant reach her daughter with number on [employer] (tried 6 times so far) * . is on vanc and cefepime empirically Will start oral vanc due to severe diarrhea, await stool study results. Will need placement or shelter due to multiple medical conditions and underlying psych disorder plus substance use Review of Systems - Medications/Allergies Allergies/Adverse Reactions: Allergies Allergy/AdvReac Type Severity Reaction Status Date / Time codeine Allergy Verified 12/30/17 22:48 morphine Allergy Verified 12/30/17 22:48 Penicillins Allergy Verified 12/30/17 22:48 Medications: Current Medications Acetaminophen (Tylenol) 650 mg PO Q4H PRN PRN Reason: Headache/Fever or Pain Docusate Sodium (Colace) 100 mg PO BID [facility] Last Admin: 12/31/17 00:40 Dose: Not Given Famotidine (Pepcid) 20 mg PO DAILY [facility] Guaifenesin/Dextromethorphan (Robitussin Dm) 15 ml PO Q4H PRN PRN Reason: Cough Heparin Sodium (Porcine) (Heparin) 5,000 units SC BID [facility] Last Admin: 12/31/17 00:40 Dose: 5,000 units Sodium Chloride (Normal Saline 0.9%) 1,000 mls @ 100 mls/hr IV .Q10H [facility] Last Admin: 12/31/17 05:44 Dose: 1,000 mls Cefepime HCl 0.5 gm/ Sodium (Chloride) 50 mls @ 100 mls/hr IVPB 2100 [facility] Miscellaneous Medication (Pharmacy To Dose) 0 each IVPB ONE [facility] Stop: 01/10/18 05:16 Miscellaneous Medication (Vancomycin Sliding Scale) 0 each IVPB 2000 [facility] Ondansetron HCl (Zofran) 4 mg IVP Q6H PRN PRN Reason: Nausea/Vomiting
[2017-12-31] MEDS ORDERED: PARoxetine 20 MG TAB ONE (16:18)
[2017-12-31] MEDS: Vancomycin HCl 25 MG/ML Oral PO SCH ×2 (17:18→22:02)
[2017-12-31] MEDS: Famotidine 20 MG TAB PO SCH (17:19)
--- NOTE | 2017-12-31 19:18 | PRG ---
DATE OF SERVICE: 12/31/2017 SUBJECTIVE: Patient was seen and examined at bedside and overnight events noted. Patient denies any shortness of breath or chest pain or palpitation. No history of nausea or vomiting or diarrhea or f ever or chills or cramps. OBJECTIVE: GENERAL: This is a thin-built female in no apparent distress. VITAL SIGNS: Temperature 98.7, pulse 91, respiratory rate 18, blood pressure 100/39. HEENT: Atraumatic, normocephalic, Oral mucosa is moist NECK: Supple CARDIOVASCULAR: S1, S2 heard. Rate and rhythm regular. RESPIRATORY: Clear to auscultation. GASTROINTESTINAL: Abdomen is soft. MUSCULOSKELETAL: No tenderness, no edema. DERMATOLOGIC: No skin rash. NEUROLOGIC: Alert, awake, and oriented x3. No focal neurologic deficits. Moving all the extremitie s. PSYCHIATRIC: Mood and affect normal. LABORATORY DATA: Potassium 3.2, BUN is 117, creatinine is 5.7 from 7.2. ASSESSMENT AND PLAN: 1. Acute kidney injury secondary to volume depletion. Creatinine getting better with IV hydration. 2. Metabolic acidosis. We will continue with bicarbonate with fluids. 3. Edema . 4. Hypertension, stable. 5. Mild hypoalbuminemia. 6. Anemia. We will monitor. Plan is to continue hydration. Renal function seems to be getting better. Continue bicarbonate thro ugh IV and we will follow.
[2017-12-31 19:32] LABS: Vancomycin, Random 16.8 ug/mL (See Comment)
[2017-12-31] MEDS ORDERED: Sodium Bicarbonate 150 MEQ in Dextrose 5% in Water 1,000 ML IV SCH (20:00)
[2017-12-31] MEDS ORDERED: Vancomycin HCl 500 MG in Sodium Chloride 0.9% 100 ML IVPB SCH (20:30)
[2018-01-01 04:45] LABS: Albumin 2.7 g/dL (3.5-5.0); Anion Gap 16 mmol/L (10-20); BUN (Urea Nitrogen) 93 mg/dL (9.8-20.1); Calc. Creatinine Clearance 22 mL/min (70-130); Calcium 9.1 mg/dL (7.8-10.44); Carbon Dioxide 19 mmol/L (22-29); Chloride 110 mmol/L (98-107); Estimated GFR-MDRD 20; Glucose 111 mg/dL (70-105); Potassium 2.8 mmol/L (3.5-5.1); Sodium 142 mmol/L (136-145)
--- NOTE | 2018-01-01 07:59 | PRG ---
DATE OF SERVICE: 01/01/2018 SUBJECTIVE: The patient is more alert than she was yesterday. She does not seem to be in any distre ss. PHYSICAL EXAMINATION: VITAL SIGNS: Temperature is 98.2, pulse 90, respirations 18, O2 sat 99%, blood pressure 107/38. A 2 4-hour intake 3290, output 3250. HEENT: Unremarkable. NECK: No JVD. LUNGS: Fairly clear anteriorly. CARDIOVASCULAR: S1 and S2 regular. ABDOMEN: Soft. EXTREMITIES: No edema. LABORATORY DATA: C. diff toxin was positive for the antigen. Sodium 142, potassium 2.8, chloride 11 0, CO2 19, BUN 93, creatinine 2.4, glucose 111. ASSESSMENT: 1. The patient presents with acute renal failure secondary to volume depletion. 2. Positive drug screen. 3. History of hypertension. 4. History of diabetes mellitus. 5. History of bipolar disorder. PLAN: 1. The patient needs her potassium replaced. 2. Continue hydration as her BUN and creatinine are improving nicely. 3. Continue oral vancomycin. Consider discontinuing IV cefepime if the remainder of her cultures re main sterile.
[2018-01-01] MEDS: Sodium Chloride 0.9% 1,000 ML IV SCH ×2 (10:17→17:33)
[2018-01-01] MEDS: Lithium Carbonate 150 MG CAP PO SCH (10:17)
[2018-01-01] MEDS: Potassium Chloride 20 MEQ TAB PO SCH ×3 (10:17→22:34)
[2018-01-01] MEDS: Famotidine 20 MG TAB PO SCH (10:18)
[2018-01-01] MEDS: Docusate 100 MG CAP PO SCH ×2 (10:18→19:50)
[2018-01-01] MEDS: Divalproex Sodium 250 MG (DR) TAB PO SCH (10:18)
[2018-01-01] MEDS: Heparin 5,000 UNITS/ML VIAL SC SCH ×2 (10:18→19:50)
[2018-01-01] MEDS: Vancomycin HCl 25 MG/ML Oral PO SCH ×4 (10:19→19:53)
[2018-01-01] MEDS ORDERED: Potassium Chloride 20 MEQ TAB PO SCH (12:00)
--- NOTE | 2018-01-01 12:51 | PDOC.PN ---
- Subjective Encounter Start Date: 01/01/18 Encounter Start Time: 12:00 Subjective: awake, not fully oriented -: responds to verbal questions -: no abd pain or nausea, she is drinking ensure - Objective Resuscitation Status: Resuscitation Status FULL:Full Resuscitation MAR Reviewed: Yes Vital Signs & Weight: Vital Signs (12 hours) Temp Pulse Resp BP BP BP Pulse Ox 01/01/18 11:19 97.4 F L 95 15 117/37 L 99 01/01/18 09:17 96/46 L 105/49 L 01/01/18 07:58 97 01/01/18 07:48 97.0 F L 87 23 H 99/42 L 100 01/01/18 04:19 98.2 F 90 18 107/38 L 99 Weight Admit Weight 129 lb 4.8 oz Weight 129 lb 4.8 oz I&O: 12/31/17 01/01/18 01/02/18 06:59 06:59 06:59 Intake Total 600 3290 Output Total 75 3250 Balance 525 40 Result Diagrams: 12/31/17 03:55 01/01/18 03:45 Phys Exam - Physical Examination HEENT: PERRLA, moist MMs Neck: no nodes, no JVD Respiratory: no wheezing, no rales Cardiovascular: RRR, no significant murmur Gastrointestinal: soft, non-tender, no distention, positive bowel sounds Musculoskeletal: no edema, pulses present Neurological: non-focal, moves all 4 limbs Dx/Plan (1) Clostridium difficile colitis Status: Acute (2) Acute renal failure Status: Acute Qualifiers: Acute renal failure type: unspecified Qualified Code(s): N17.9 - Acute kidney failure, unspecified (3) Metabolic acidosis Code(s): E87.2 - ACIDOSIS Status: Acute (4) Gastroenteritis Code(s): K52.9 - NONINFECTIVE GASTROENTERITIS AND COLITIS, UNSPECIFIED Status : Acute Comment: sec to c.diff colitis (5) Acute encephalopathy Code(s): G93.40 - ENCEPHALOPATHY, UNSPECIFIED Status: Acute (6) Substance abuse Code(s): F19.10 - OTHER PSYCHOACTIVE SUBSTANCE ABUSE, UNCOMPLICATED Status: Acute Comment: pcp and cocaine, but denies (7) UTI (urinary tract infection) Status: Acute Qualifiers: Urinary tract infection type: acute cystitis Hematuria presence: without hematuria Qualified Code(s): N30.00 - Acute cystitis without hematuria (8) Bipolar disorder Code(s): F31.9 - BIPOLAR DISORDER, UNSPECIFIED Status: Chronic Qualifiers: Active/Remission status: remission status unspecified Qualified Code(s): F31.9 - Bipolar disorder, unspecified (9) Hypertension Code(s): I10 - ESSENTIAL (PRIMARY) HYPERTENSION Status: Chronic Qualifiers: Hypertension type: essential hypertension (10) Tobacco abuse Code(s): Z72.0 - TOBACCO USE Status: Chronic - Plan continue iv hydration, creatinine is down to 2.4 -: continue po vanc -: has been started on lithium and risperdal -: PT to mobilize as tolerated, is severely deconditioned -: will need placement, may tx to med floor * . Review of Systems - Medications/Allergies Allergies/Adverse Reactions: Allergies Allergy/AdvReac Type Severity Reaction Status Date / Time codeine Allergy Verified 12/30/17 22:48 morphine Allergy Verified 12/30/17 22:48 Penicillins Allergy Verified 12/30/17 22:48 Medications: Current Medications Acetaminophen (Tylenol) 650 mg PO Q4H PRN PRN Reason: Headache/Fever or Pain Divalproex Sodium (Depakote) 500 mg PO HS [facility] Divalproex Sodium (Depakote) 250 mg PO DAILY [facility] Last Admin: 01/01/18 10:18 Dose: 250 mg Docusate Sodium (Colace) 100 mg PO BID [facility] Last Admin: 01/01/18 10:18 Dose: Not Given Famotidine (Pepcid) 20 mg PO DAILY [facility] Last Admin: 01/01/18 10:18 Dose: 20 mg Guaifenesin/Dextromethorphan (Robitussin Dm) 15 ml PO Q4H PRN PRN Reason: Cough Heparin Sodium (Porcine) (Heparin) 5,000 units SC BID [facility] Last Admin: 01/01/18 10:18 Dose: 5,000 units Sodium Chloride (Normal Saline 0.9%) 1,000 mls @ 100 mls/hr IV .Q10H [facility] Last Admin: 01/01/18 10:17 Dose: 1,000 mls [place] Carbonate ([place] Carbonate) 300 mg PO QAM-WM [facility] Last Admin: 01/01/18 10:17 Dose: 300 mg Ondansetron HCl (Zofran) 4 mg IVP Q6H PRN PRN Reason: Nausea/Vomiting Potassium Chloride (K-Dur) 40 meq PO Q6H [facility] Stop: 01/02/18 02:01 Last Admin: 01/01/18 10:17 Dose: 40 meq Risperidone (Risperidone) 3 mg PO HS [facility] Sertraline HCl (Zoloft) 50 mg PO DAILY [facility] Last Admin: 01/01/18 10:18 Dose: 50 mg Trazodone HCl (Desyrel) 100 mg PO HS [facility] Vancomycin HCl (First Vancomycin) 125 mg PO QID [facility] Last Admin: 01/01/18 10:19 Dose: 125 mg
--- NOTE | 2018-01-01 13:36 | PQF ---
DATE: 01-01-18 ATTN: DR. MARIIA GREENE Please exercise your independent, professional judgment in responding to the clarification form. Clinical indicators are provided on the bottom of this form for your review Please check appropriate box(s) to clarify if the following diagnosis has been ruled in or ruled out: SEPSIS [ x ] Ruled in diagnosis [ x ] Continue to treat [ ] Resolved [ ] Ruled out diagnosis [ ] Other diagnosis [ ] Unable to determine In addition, please specify: Present on Admission (POA): [ x ] Yes [ ] No [ ] Unable to determine For continuity of documentation, please document condition throughout progress notes and discharge summary. Thank You. CLINICAL INDICATORS - SIGNS / SYMPTOMS / LABS ER DX: ACUTE RENAL FAILURE, DEHYDRATION, SEPSIS H&P: ACUTE RENAL FAILURE, SEVERE METABOLIC ACIDOSIS, POSSIBLE SEPSIS, SEVERE DECONDITIONING, ACUTE ENCEPHALOPATHY H&P: PATIENT IS NOT FULLY ORIENTED, VERY LETHARGIC AND COULD NOT GET UP PN DR. GREENE 12-31-17: ACUTE RENAL FAILURE, METABOLIC ACIDOSIS, GASTROENTERITIS, ACUTE ENCEPHALOPATHY, UTI WBC: 12-30-17: 12.5 RISK FACTORS: ER: CONFUSION, SOB, COUGH, DIABETES, HTN, HLD, BIPOLAR PN DR. GREENE 12-31-17: ACUTE RENAL FAILURE, METABOLIC ACIDOSIS, GASTROENTERITIS, ACUTE ENCEPHALOPATHY, UTI TREATMENTS: ER: CEFEPIME, IVF, VANCOMYCIN, (This form is maintained as a part of the permanent medical record) 2014 [employer]. All Rights Reserved MTDD
--- NOTE | 2018-01-01 13:46 | PQF ---
DATE: 01-01-18 ATTN: DR. MARIIA GREENE Please exercise your independent, professional judgment in responding to the clarification form. Clinical indicators are provided on the bottom of this form for your review Please check appropriate box(s): [ x ] Encephalopathy: Etiology: [ ] Hypertensive [ ] Metabolic [ x] Toxic [ ] Septic [ ] Drug induced: __ [ ] Unspecified _ [ ] Other (please specify) [ ] Other diagnosis [ ] Unable to determine In addition, please specify: Present on Admission (POA): [ x ] Yes [ ] No [ ] Unable to determine For continuity of documentation, please document condition throughout progress notes and discharge summary. Thank You. CLINICAL INDICATORS - SIGNS / SYMPTOMS / LABS ER: AMS, CONFUSION, FRIENDS SENT EMS FOR A WELL CHECK UP, PT FOUND ON FLOOR WITH FECES EVERYWHERE H&P: ACUTE RENAL FAILURE, SEVERE METABOLIC ACIDOSIS, POSSIBLE SEPSIS, SEVERE DECONDITIONING AND ACUTE ENCEPHALOPATHY PN DR. DENNISON 12-31-17: URINE DRUG SCREEN POSITIVE FOR COCAINE AND PCP, HX OF BIPOLAR AND PERHAPS SCHIZOPHRENIA RISK FACTORS: H&P: ACUTE RENAL FAILURE, SEVERE METABOLIC ACIDOSIS, POSSIBLE SEPSIS, SEVERE DECONDITIONING AND ACUTE ENCEPHALOPATHY PN DR. DENNISON 12-31-17: URINE DRUG SCREEN POSITIVE FOR COCAINE AND PCP, HX OF BIPOLAR AND PERHAPS SCHIZOPHRENIA TREATMENTS: ER: SODIUM BICARBONATE IV, CEFEPIME, IVF BOLUS, VANCOMYCIN (This form is maintained as a part of the permanent medical record) 2014 [employer] All Rights Reserved [facility]
[2018-01-01] MEDS ORDERED: Potassium Chloride 40 MEQ in Sodium Chloride 0.9% 250 ML 250 ML IVPB SCH (14:00)
--- NOTE | 2018-01-01 18:34 | PRG ---
DATE OF SERVICE: 01/01/2018 SUBJECTIVE: Patient was seen and examined at bedside and overnight events noted. Patient denies any shortness of breath or chest pain or palpitation. No history of nausea or vomitin g or diarrhea or fever or chills or cramps. OBJECTIVE: GENERAL: This is a well-built female, in no apparent distress.. VITAL SIGNS: Temperature 97.4, pulse 94, respiratory rate 15, blood pressure . HEENT: Atraumatic, normocephalic. Oral mucosa is moist. NECK: Supple. CARDIOVASCULAR: S1 and S2 heard. Rate and rhythm regular. RESPIRATORY: Clear to auscultation. GASTROINTESTINAL: Abdomen is soft. MUSCULOSKELETAL: No tenderness. No edema. DERMATOLOGIC: No skin rash. NEUROLOGIC: Alert and awake and oriented x3. No focal neurologic deficits. Moving all the extremit ies. PSYCHIATRIC: Mood and affect normal. LABORATORY DATA: Potassium is 2.8, BUN 93, creatinine is 2.5, bicarbonate is 19. ASSESSMENT AND PLAN: 1. Acute kidney injury secondary to volume depletion. Creatinine is much better, 2.4 from 7.2 on ad mission. 2. Hypokalemia, severe. Continue aggressive potassium supplements. We will recheck potassium after the IV bag. Given her diarrhea, oral supplements may not have enough absorption to increase the lev el. 3. Metabolic acidosis, better. 4. Edema, controlled. 5. Hypertension, stable. 6. Anemia. Continue hydration as tolerated. Aggressively replace potassium.
[2018-01-01] MEDS: Divalproex Sodium DR 500 MG TAB PO SCH ×2 (19:49→19:50)
[2018-01-01] MEDS: risperiDONE 3 MG TAB PO SCH (19:53)
[2018-01-01] MEDS ORDERED: Vancomycin Sliding Scale 1 EACH IVPB SCH (20:00)
[2018-01-01] MEDS ORDERED: Lithium Carbonate 150 MG CAP PO SCH (21:00)
[2018-01-01] MEDS ORDERED: traZODone HCl 50 MG TAB PO SCH (21:00)
[2018-01-01 21:09] LABS: Magnesium 1.5 mg/dL (1.6-2.6); Potassium 3.8 mmol/L (3.5-5.1)
[2018-01-02] MEDS: Sodium Chloride 0.9% 1,000 ML IV SCH (02:00)
[2018-01-02] MEDS: Potassium Chloride 20 MEQ TAB PO SCH ×2 (04:38→08:11)
[2018-01-02 05:40] LABS: Albumin 2.7 g/dL (3.5-5.0); Anion Gap 11 mmol/L (10-20); BUN (Urea Nitrogen) 50 mg/dL (9.8-20.1); BUN/Creatinine Ratio 53.76; Calc. Creatinine Clearance 60 mL/min (70-130); Calcium 9.1 mg/dL (7.8-10.44); Carbon Dioxide 24 mmol/L (22-29); Chloride 114 mmol/L (98-107); Estimated GFR-MDRD 61; Glucose 95 mg/dL (70-105); Phosphorus 2.1 mg/dL (2.3-4.7); Potassium 3.9 mmol/L (3.5-5.1); Sodium 145 mmol/L (136-145)
[2018-01-02] MEDS: Lactated Ringer's 1,000 ML IV SCH ×2 (08:09→21:22)
[2018-01-02] MEDS: Lithium Carbonate 150 MG CAP PO SCH (08:10)
[2018-01-02] MEDS: Divalproex Sodium 250 MG (DR) TAB PO SCH (08:13)
[2018-01-02] MEDS: Magnesium Oxide 400 MG TAB PO SCH ×2 (08:13→21:24)
[2018-01-02] MEDS: Heparin 5,000 UNITS/ML VIAL SC SCH ×2 (08:14→21:24)
[2018-01-02] MEDS: Docusate 100 MG CAP PO SCH ×2 (08:14→21:25)
[2018-01-02] MEDS: Famotidine 20 MG TAB PO SCH (08:14)
[2018-01-02] MEDS: Vancomycin HCl 25 MG/ML Oral PO SCH ×4 (08:15→21:23)
--- NOTE | 2018-01-02 08:33 | PRG ---
DATE OF SERVICE: 01/02/2018 SUBJECTIVE: The patient is doing reasonably well, has no complaints. She still has a rectal tube in place for diarrhea. PHYSICAL EXAMINATION: VITAL SIGNS: On exam her temperature is 96.6, pulse 76, respirations 17, O2 sat 100%, blood pressure 111/52. HEENT: Unremarkable. NECK: No JVD. LUNGS: Clear, without wheezing or rhonchi. CARDIOVASCULAR: S1, S2 regular. ABDOMEN: Mildly tender. EXTREMITIES: No edema. LABORATORY DATA: Sodium 145, potassium 3.8, chloride 114, CO2 of 24, BUN 50, creatinine 0.9, glucose 95. ASSESSMENT: 1. Clostridium difficile colitis. 2. Volume depletion secondary to Clostridium difficile colitis. 3. Prerenal azotemia which is improving after hydration. 4. Positive drug screen at admission. 5. Multiple other medical problems. PLAN: The patient needs to continue therapy for C. difficile colitis. Her labs have grossly improve d on the IV hydration. There are no active pulmonary problems so we will sign off. Please recall if further assistance needed.
--- NOTE | 2018-01-02 11:38 | PDOC.PN ---
- Subjective Encounter Start Date: 01/02/18 Encounter Start Time: 11:00 Subjective: awake, no nausea or abdominal pain - Objective Resuscitation Status: Resuscitation Status FULL:Full Resuscitation MAR Reviewed: Yes Vital Signs & Weight: Vital Signs (12 hours) Temp Pulse Resp BP BP Pulse Ox 01/02/18 08:00 99 01/02/18 07:20 96.6 F L 76 17 111/52 L 100 01/02/18 04:58 97.8 F 86 20 115/51 L 98 01/02/18 01:16 98.1 F 86 20 123/58 L 96 Weight Admit Weight 129 lb 4.8 oz Weight 131 lb 8 oz I&O: 01/01/18 01/02/18 01/03/18 06:59 06:59 06:59 Intake Total 3290 2950 Output Total 3250 3700 Balance 40 -750 Result Diagrams: 12/31/17 03:55 01/02/18 04:51 Phys Exam - Physical Examination HEENT: PERRLA, moist MMs Neck: no JVD, supple Respiratory: no wheezing, no rales Cardiovascular: RRR, no significant murmur Gastrointestinal: soft, non-tender, positive bowel sounds Musculoskeletal: no edema, pulses present Neurological: non-focal, moves all 4 limbs Dx/Plan (1) Clostridium difficile colitis Status: Acute (2) Acute renal failure Status: Acute Qualifiers: Acute renal failure type: unspecified Qualified Code(s): N17.9 - Acute kidney failure, unspecified Comment: resolving (3) Metabolic acidosis Code(s): E87.2 - ACIDOSIS Status: Resolved (4) Gastroenteritis Code(s): K52.9 - NONINFECTIVE GASTROENTERITIS AND COLITIS, UNSPECIFIED Status : Acute Comment: sec to c.diff colitis (5) Acute encephalopathy Code(s): G93.40 - ENCEPHALOPATHY, UNSPECIFIED Status: Acute Comment: resolving (6) Substance abuse Code(s): F19.10 - OTHER PSYCHOACTIVE SUBSTANCE ABUSE, UNCOMPLICATED Status: Acute Comment: pcp and cocaine, but denies (7) Bipolar disorder Code(s): F31.9 - BIPOLAR DISORDER, UNSPECIFIED Status: Chronic Qualifiers: Active/Remission status: remission status unspecified Qualified Code(s): F31.9 - Bipolar disorder, unspecified (8) Hypertension Code(s): I10 - ESSENTIAL (PRIMARY) HYPERTENSION Status: Chronic Qualifiers: Hypertension type: essential hypertension (9) Tobacco abuse Code(s): Z72.0 - TOBACCO USE Status: Chronic - Plan PT/OT to mobilize as tolerated -: renal function has improved and is at baseline -: continue oral vanc, remove rectal tube -: will need swing bed -: correct electrolytes mg, phosphorus and potassium * . Continue depakote, lithium and risperdal, dc trazadone. Review of Systems - Medications/Allergies Allergies/Adverse Reactions: Allergies Allergy/AdvReac Type Severity Reaction Status Date / Time codeine Allergy Verified 12/30/17 22:48 morphine Allergy Verified 12/30/17 22:48 Penicillins Allergy Verified 12/30/17 22:48 Medications: Current Medications Acetaminophen (Tylenol) 650 mg PO Q4H PRN PRN Reason: Headache/Fever or Pain Divalproex Sodium (Depakote) 500 mg PO HS [facility] Last Admin: 01/01/18 19:50 Dose: 500 mg Divalproex Sodium (Depakote) 250 mg PO DAILY [facility] Last Admin: 01/02/18 08:13 Dose: 250 mg Docusate Sodium (Colace) 100 mg PO BID [facility] Last Admin: 01/02/18 08:14 Dose: Not Given Famotidine (Pepcid) 20 mg PO DAILY [facility] Last Admin: 01/02/18 08:14 Dose: 20 mg Guaifenesin/Dextromethorphan (Robitussin Dm) 15 ml PO Q4H PRN PRN Reason: Cough Heparin Sodium (Porcine) (Heparin) 5,000 units SC BID [facility] Last Admin: 01/02/18 08:14 Dose: 5,000 units Lactated Ringer's (Lactated Ringer's) 1,000 mls @ 75 mls/hr IV .[id number] [facility] Last Admin: 01/02/18 08:09 Dose: 1,000 mls [place] Carbonate ([place] Carbonate) 300 mg PO QAM-WM [facility] Last Admin: 01/02/18 08:10 Dose: 300 mg Magnesium Oxide (Magnesium Oxide) 400 mg PO BID [facility] Stop: 01/04/18 21:01 Last Admin: 01/02/18 08:13 Dose: 400 mg Miscellaneous Medication (Phos-Nak) 1 pkt PO BID [facility] Stop: 01/04/18 21:01 Last Admin: 01/02/18 08:14 Dose: 1 pkt Ondansetron HCl (Zofran) 4 mg IVP Q6H PRN PRN Reason: Nausea/Vomiting Potassium Chloride (K-Dur) 40 meq PO QAM-WM [facility] Last Admin: 01/02/18 08:11 Dose: 40 meq Risperidone (Risperidone) 3 mg PO HS [facility] Last Admin: 01/01/18 19:53 Dose: 3 mg Sertraline HCl (Zoloft) 50 mg PO DAILY [facility] Last Admin: 01/02/18 08:13 Dose: 50 mg Vancomycin HCl (First Vancomycin) 125 mg PO QID [facility] Last Admin: 01/02/18 08:15 Dose: 125 mg
[2018-01-02 12:32] VITALS: BMI 24.0
--- NOTE | 2018-01-02 18:17 | PRG ---
DATE OF SERVICE: 01/02/2018 SUBJECTIVE: Patient was seen and examined at bedside and overnight events noted. Patient denies any shortness of breath or chest pain or palpitation. No history of nausea or vomitin g or diarrhea or fever or chills or cramps. OBJECTIVE: GENERAL: This is a well-built female, in no apparent distress. VITAL SIGNS: Temperature 98.4, pulse 84, respiratory rate 18, blood pressure 110/55. HEENT: Atraumatic, normocephalic. Oral mucosa is moist. NECK: Supple. CARDIOVASCULAR: S1 and S2 heard. Rate and rhythm regular. RESPIRATORY: Clear to auscultation. GASTROINTESTINAL: Abdomen is soft. MUSCULOSKELETAL: No tenderness. No edema. DERMATOLOGIC: No skin rash. NEUROLOGIC: Alert and awake and oriented x3. No focal neurologic deficits. Moving all the extremit ies. PSYCHIATRIC: Mood and affect normal. LABORATORY DATA: Potassium 3.9, BUN 50, creatinine is 0.9. ASSESSMENT AND PLAN: 1. Acute kidney injury from volume depletion. 2. Hypokalemia. 3. Edema, controlled. 4. Hypertension. 5. Anemia. 6. Metabolic acidosis. 7. Labs are much better. I will sign off. Please call back if any questions.
[2018-01-02] MEDS: Divalproex Sodium DR 500 MG TAB PO SCH (21:23)
[2018-01-02] MEDS: risperiDONE 3 MG TAB PO SCH (21:24)
[2018-01-03 05:02] LABS: Albumin 2.6 g/dL (3.5-5.0); Anion Gap 8 mmol/L (10-20); BUN (Urea Nitrogen) 25 mg/dL (9.8-20.1); BUN/Creatinine Ratio 34.25; Calc. Creatinine Clearance 77 mL/min (70-130); Calcium 9.4 mg/dL (7.8-10.44); Carbon Dioxide 27 mmol/L (22-29); Chloride 115 mmol/L (98-107); Estimated GFR-MDRD 81; Glucose 88 mg/dL (70-105); Phosphorus 2.4 mg/dL (2.3-4.7); Potassium 4.8 mmol/L (3.5-5.1); Sodium 145 mmol/L (136-145)
[2018-01-03] MEDS: Vancomycin HCl 25 MG/ML Oral PO SCH ×4 (08:02→22:08)
[2018-01-03] MEDS: Lithium Carbonate 150 MG CAP PO SCH (08:02)
[2018-01-03] MEDS: Magnesium Oxide 400 MG TAB PO SCH (08:02)
[2018-01-03] MEDS: Potassium Chloride 20 MEQ TAB PO SCH (08:02)
[2018-01-03] MEDS: Heparin 5,000 UNITS/ML VIAL SC SCH ×2 (08:03→22:08)
[2018-01-03] MEDS: Docusate 100 MG CAP PO SCH (08:03)
[2018-01-03] MEDS: Famotidine 20 MG TAB PO SCH (08:03)
[2018-01-03] MEDS: Divalproex Sodium 250 MG (DR) TAB PO SCH (08:03)
--- NOTE | 2018-01-03 13:41 | PDOC.PN ---
- Subjective Encounter Start Date: 01/03/18 Encounter Start Time: 08:35 Subjective: still having lots of liq stools -: awake, no sob or abd pain -: follows verbal stimuli - Objective Resuscitation Status: Resuscitation Status FULL:Full Resuscitation MAR Reviewed: Yes Vital Signs & Weight: Vital Signs (12 hours) Temp Pulse Resp BP Pulse Ox 01/03/18 10:50 98.4 F 86 20 149/65 H 93 L 01/03/18 08:00 94 L 01/03/18 07:18 98.4 F 80 16 153/77 H 94 L Weight Admit Weight 129 lb 4.8 oz Weight 131 lb 8 oz I&O: 01/02/18 01/03/18 01/04/18 06:59 06:59 06:59 Intake Total 2950 3300 Output Total 3700 3525 Balance -750 -225 Result Diagrams: 12/31/17 03:55 01/03/18 03:54 Phys Exam - Physical Examination HEENT: PERRLA, sclera anicteric Neck: no JVD, supple Respiratory: no wheezing, no rales Cardiovascular: RRR, no significant murmur Gastrointestinal: soft, non-tender, no distention, positive bowel sounds Musculoskeletal: no edema, pulses present Neurological: non-focal, moves all 4 limbs Dx/Plan (1) Clostridium difficile colitis Status: Acute (2) Acute renal failure Status: Resolved Qualifiers: Acute renal failure type: unspecified Qualified Code(s): N17.9 - Acute kidney failure, unspecified (3) Metabolic acidosis Code(s): E87.2 - ACIDOSIS Status: Resolved (4) Gastroenteritis Code(s): K52.9 - NONINFECTIVE GASTROENTERITIS AND COLITIS, UNSPECIFIED Status : Acute Comment: sec to c.diff colitis (5) Acute encephalopathy Code(s): G93.40 - ENCEPHALOPATHY, UNSPECIFIED Status: Acute Comment: resolving (6) Substance abuse Code(s): F19.10 - OTHER PSYCHOACTIVE SUBSTANCE ABUSE, UNCOMPLICATED Status: Acute Comment: pcp and cocaine, but denies (7) Bipolar disorder Code(s): F31.9 - BIPOLAR DISORDER, UNSPECIFIED Status: Chronic Qualifiers: Active/Remission status: remission status unspecified Qualified Code(s): F31.9 - Bipolar disorder, unspecified (8) Hypertension Code(s): I10 - ESSENTIAL (PRIMARY) HYPERTENSION Status: Chronic Qualifiers: Hypertension type: essential hypertension (9) Tobacco abuse Code(s): Z72.0 - TOBACCO USE Status: Chronic - Plan likely diarrhea got worse with oral electrolyte replacement mgo and phospho -: will xifaxan to oral vanc -: may place her on rectal tube, has octaviano anal ulceration due to maceration -: ulceration present on admission (she was laying in stool when found down) -: will get GI opinion, renal function is at baseline now, continue iv hydrati * . Review of Systems - Medications/Allergies Allergies/Adverse Reactions: Allergies Allergy/AdvReac Type Severity Reaction Status Date / Time codeine Allergy Verified 12/30/17 22:48 morphine Allergy Verified 12/30/17 22:48 Penicillins Allergy Verified 12/30/17 22:48 Medications: Current Medications Acetaminophen (Tylenol) 650 mg PO Q4H PRN PRN Reason: Headache/Fever or Pain Divalproex Sodium (Depakote) 500 mg PO HS [facility] Last Admin: 01/02/18 21:23 Dose: 500 mg Divalproex Sodium (Depakote) 250 mg PO DAILY [facility] Last Admin: 01/03/18 08:03 Dose: 250 mg Famotidine (Pepcid) 20 mg PO DAILY [facility] Last Admin: 01/03/18 08:03 Dose: 20 mg Guaifenesin/Dextromethorphan (Robitussin Dm) 15 ml PO Q4H PRN PRN Reason: Cough Last Admin: 01/02/18 21:23 Dose: 15 ml Heparin Sodium (Porcine) (Heparin) 5,000 units SC BID [facility] Last Admin: 01/03/18 08:03 Dose: 5,000 units Lactated Ringer's (Lactated Ringer's) 1,000 mls @ 75 mls/hr IV .[id number] [facility] Last Admin: 01/02/18 21:22 Dose: 1,000 mls [place] Carbonate ([place] Carbonate) 300 mg PO QAM-[facility] Last Admin: 01/03/18 08:02 Dose: 300 mg Ondansetron HCl (Zofran) 4 mg IVP Q6H PRN PRN Reason: Nausea/Vomiting Potassium Chloride (K-Dur) 40 meq PO QAM-[facility] Last Admin: 01/03/18 08:02 Dose: 40 meq Rifaximin (Xifaxan) 550 mg PO BID [facility] Risperidone (Risperidone) 3 mg PO HS [facility] Last Admin: 01/02/18 21:24 Dose: 3 mg Sertraline HCl (Zoloft) 50 mg PO DAILY [facility] Last Admin: 01/03/18 08:02 Dose: 50 mg Vancomycin HCl (First Vancomycin) 125 mg PO QID [facility] Last Admin: 01/03/18 08:02 Dose: 125 mg
[2018-01-03] MEDS: Lactated Ringer's 1,000 ML IV SCH (15:56)
[2018-01-03] MEDS: risperiDONE 3 MG TAB PO SCH (22:08)
[2018-01-03] MEDS: Divalproex Sodium DR 500 MG TAB PO SCH (22:08)
[2018-01-03] MEDS: Rifaximin 550 MG TAB PO SCH (22:08)
--- NOTE | 2018-01-04 04:03 | CON ---
DATE OF CONSULTATION: 01/03/2018 CHIEF COMPLAINT: Diarrhea. HISTORY OF PRESENT ILLNESS: Ms. Bustos is a 62-year-old woman who was admitted to the emergency room after she was found with altered mental status at home. She is now awake and alert and able to give a history. She states that she had diarrhea for a week before that. She had been discharged f rom the hospital back around 12/06/2017. She did have some diffuse aching abdominal pain that went o n for a few days but has since resolved with fluids and antibiotics. She was found to have acute vijay al failure on presentation, which is corrected with IV hydration. She has no nausea, vomiting or abd ominal pain. She does continue to have diarrhea with about 5 liquidy stools per day over the last co uple days. Incidentally, on review of her imaging, she is noted to have a nodular liver and splenome yamel consistent with cirrhosis. She states that she has never drank much alcohol but does have about one glass of alcohol per week. Her urine was noted to be positive for cocaine on presentation, but she denies ever using any kind of illicit drugs in the past. PAST MEDICAL HISTORY: Bipolar disorder, COPD, hypertension, hyperlipidemia, diabetes mellitus, possi ble schizophrenia. PAST SURGICAL HISTORY: Appendectomy, tonsillectomy, cholecystectomy, hysterectomy, skin cancer remov ed. FAMILY HISTORY: Negative for GI malignancy or cirrhosis. SOCIAL HISTORY: She smokes half a pack a day. She has 1 alcoholic drink per week. Denies drug use despite the positive urine for cocaine on presentation. ALLERGIES: CODEINE, MORPHINE, PENICILLIN. MEDICATIONS: Currently include Depakote, famotidine, heparin subQ, lithium, rifaximin, risperidone, sertraline, vancomycin. REVIEW OF SYSTEMS: Negative x10 systems reviewed except as stated in history of present illness. PHYSICAL EXAMINATION: VITAL SIGNS: Temperature 98.4, pulse 72, blood pressure 145/74, oxygen saturation 92% on room air. GENERAL: She is in no acute distress, alert and oriented x3. HEENT: Eyes have no scleral icterus. Oropharynx is clear, without lesions. NECK: No cervical or supraclavicular lymphadenopathy. LUNGS: Clear to auscultation bilaterally. HEART: Regular rate and rhythm without murmur. ABDOMEN: Soft, nontender, nondistended. Bowel sounds are present. EXTREMITIES: No lower extremity edema. NEUROLOGIC: Cranial nerves are grossly intact. There is no asterixis on neurological exam. She waters s have a few spider angiomas on her upper chest. LABORATORY DATA: Creatinine is 0.73 down from 7.24, albumin is 2.6. Ammonia 37, bilirubin 0.4, AST 5, ALT 7, alkaline phosphatase 91. TSH 3.4, lipase 32. IMPRESSION: 1. Clostridium difficile colitis. She has had diarrhea and was admitted with severe dehydration and acute renal failure. She has recent hospitalization. Her stool was positive for toxigenic C. diff by PCR. 2. Cirrhosis of the liver. She denies significant prior alcohol intake; however, she also denies dr ug use despite the positive cocaine on tox screen. We will need to work this up further. RECOMMENDATIONS: 1. Vancomycin 125 mg 4 times daily for 14 days. 2. Check viral hepatitis panel, iron saturation, alpha 1 antitrypsin level, smooth muscle antibody, mitochondrial antibody. 3. Check alpha fetoprotein. She will need to follow up in the office for hepatoma screening and sebastien ices screening. She will require EGD for that. 4. She is also recommended to follow up in the office for screening colonoscopy after treatment of h er C. diff.
[2018-01-04] MEDS: Lactated Ringer's 1,000 ML IV SCH ×3 (05:18→17:57)
[2018-01-04 05:24] LABS: Albumin 2.8 g/dL (3.5-5.0); Anion Gap 8 mmol/L (10-20); BUN (Urea Nitrogen) 12 mg/dL (9.8-20.1); BUN/Creatinine Ratio 19.05; Calc. Creatinine Clearance 89 mL/min (70-130); Calcium 9.4 mg/dL (7.8-10.44); Carbon Dioxide 29 mmol/L (22-29); Chloride 111 mmol/L (98-107); Estimated GFR-MDRD Greater than 90; Glucose 95 mg/dL (70-105); Iron 93 ug/dL (50-170); Iron Binding Capacity, Total 204 mcg/dL (265-497); Phosphorus 2.7 mg/dL (2.3-4.7); Potassium 4.7 mmol/L (3.5-5.1); Sodium 143 mmol/L (136-145)
[2018-01-04 05:44] LABS: HBSAB Concentration 1.19 mIU/mL; HBSAg Index 0.25 S/CO (0-0.99); Hep B Core Total Ab Non-Reactive (NonReactive); Hep B Core Total Index 0.06 S/CO (0-0.79); Hep B Surf AB Non-Reactive (NonReactive); Hep B Surf Ag Non-Reactive S/CO (NonReactive); Hep C IgG Ab Non-Reactive (NonReactive); Hep C Index 0.05 S/CO (0-0.79)
[2018-01-04] MEDS: Potassium Chloride 20 MEQ TAB PO SCH (08:15)
[2018-01-04] MEDS: Lithium Carbonate 150 MG CAP PO SCH (08:15)
[2018-01-04] MEDS: Rifaximin 550 MG TAB PO SCH ×2 (08:16→20:12)
[2018-01-04] MEDS: Divalproex Sodium 250 MG (DR) TAB PO SCH (08:16)
[2018-01-04] MEDS: Famotidine 20 MG TAB PO SCH (08:16)
[2018-01-04] MEDS: Vancomycin HCl 25 MG/ML Oral PO SCH ×4 (08:17→20:11)
[2018-01-04] MEDS: Heparin 5,000 UNITS/ML VIAL SC SCH ×2 (08:17→20:12)
--- NOTE | 2018-01-04 12:34 | PDOC.PN ---
- Subjective Encounter Start Date: 01/04/18 Encounter Start Time: 11:00 Subjective: still has lots of diarrhea, no abd pain or fever -: is tolerating oral diet and drinking fluids - Objective Resuscitation Status: Resuscitation Status FULL:Full Resuscitation MAR Reviewed: Yes Vital Signs & Weight: Vital Signs (12 hours) Temp Pulse Resp BP Pulse Ox 01/04/18 08:17 93 L 01/04/18 08:00 98.3 F 91 16 147/73 H 93 L Weight Admit Weight 129 lb 4.8 oz Weight 131 lb 8 oz I&O: 01/03/18 01/04/18 01/05/18 06:59 06:59 06:59 Intake Total 3300 4402 Output Total 352 5668 Balance -225 -1223 Result Diagrams: 12/31/17 03:55 01/04/18 04:28 Additional Labs: Accuchecks 01/04/18 04:43 POC Glucose 89 Phys Exam - Physical Examination HEENT: PERRLA, moist MMs Neck: no JVD, supple Respiratory: no wheezing, no rales Cardiovascular: RRR, no significant murmur Gastrointestinal: soft, non-tender, no distention, positive bowel sounds Musculoskeletal: no edema, pulses present Neurological: non-focal, moves all 4 limbs Psychiatric: A&O x 3 Dx/Plan (1) Clostridium difficile colitis Status: Acute (2) Acute renal failure Status: Resolved Qualifiers: Acute renal failure type: unspecified Qualified Code(s): N17.9 - Acute kidney failure, unspecified (3) Metabolic acidosis Code(s): E87.2 - ACIDOSIS Status: Resolved (4) Gastroenteritis Code(s): K52.9 - NONINFECTIVE GASTROENTERITIS AND COLITIS, UNSPECIFIED Status : Acute Comment: sec to c.diff colitis (5) Acute encephalopathy Code(s): G93.40 - ENCEPHALOPATHY, UNSPECIFIED Status: Acute Comment: resolving (6) Substance abuse Code(s): F19.10 - OTHER PSYCHOACTIVE SUBSTANCE ABUSE, UNCOMPLICATED Status: Acute Comment: pcp and cocaine, but denies (7) Bipolar disorder Code(s): F31.9 - BIPOLAR DISORDER, UNSPECIFIED Status: Chronic Qualifiers: Active/Remission status: remission status unspecified Qualified Code(s): F31.9 - Bipolar disorder, unspecified (8) Hypertension Code(s): I10 - ESSENTIAL (PRIMARY) HYPERTENSION Status: Chronic Qualifiers: Hypertension type: essential hypertension (9) Tobacco abuse Code(s): Z72.0 - TOBACCO USE Status: Chronic - Plan still has a lot of watery to semisolid stools -: agrees to have rectal tube placed which will help buttock ulcers to heel as -: on vanc po and xifaxan -: continue ringer lactate until diarrhea holds up -: to mobilize with PT as tolerated * . Review of Systems - Medications/Allergies Allergies/Adverse Reactions: Allergies Allergy/AdvReac Type Severity Reaction Status Date / Time codeine Allergy Verified 12/30/17 22:48 morphine Allergy Verified 12/30/17 22:48 Penicillins Allergy Verified 12/30/17 22:48 Medications: Current Medications Acetaminophen (Tylenol) 650 mg PO Q4H PRN PRN Reason: Headache/Fever or Pain Divalproex Sodium (Depakote) 500 mg PO HS [facility] Last Admin: 01/03/18 22:08 Dose: 500 mg Divalproex Sodium (Depakote) 250 mg PO DAILY [facility] Last Admin: 01/04/18 08:16 Dose: 250 mg Famotidine (Pepcid) 20 mg PO DAILY [facility] Last Admin: 01/04/18 08:16 Dose: 20 mg Guaifenesin/Dextromethorphan (Robitussin Dm) 15 ml PO Q4H PRN PRN Reason: Cough Last Admin: 01/02/18 21:23 Dose: 15 ml Heparin Sodium (Porcine) (Heparin) 5,000 units SC BID [facility] Last Admin: 01/04/18 08:17 Dose: 5,000 units Lactated Ringer's (Lactated Ringer's) 1,000 mls @ 75 mls/hr IV .[id number] [facility] Last Admin: 01/04/18 05:18 Dose: 1,000 mls [place] Carbonate ([place] Carbonate) 300 mg PO QAM-[facility] Last Admin: 01/04/18 08:15 Dose: 300 mg Ondansetron HCl (Zofran) 4 mg IVP Q6H PRN PRN Reason: Nausea/Vomiting Potassium Chloride (K-Dur) 40 meq PO QAM-[facility] Last Admin: 01/04/18 08:15 Dose: 40 meq Rifaximin (Xifaxan) 550 mg PO BID [facility] Last Admin: 01/04/18 08:16 Dose: 550 mg Risperidone (Risperidone) 3 mg PO HS [facility] Last Admin: 01/03/18 22:08 Dose: 3 mg Sertraline HCl (Zoloft) 50 mg PO DAILY [facility] Last Admin: 01/04/18 08:16 Dose: 50 mg Vancomycin HCl (First Vancomycin) 125 mg PO QID [facility] Last Admin: 01/04/18 08:17 Dose: 125 mg
[2018-01-04 12:39] LABS: EliA Vaculitis New Method **** NEW METHOD ****; Mitochondrial Ab Less than 0.5 U/mL (<4 Negative)
--- NOTE | 2018-01-04 13:01 | PRG ---
DATE OF SERVICE: 01/04/2018 SUBJECTIVE: Ms. Bustos is still having diarrhea today. She has no abdominal pain or nausea. S he is tolerating a solid diet well. OBJECTIVE: VITAL SIGNS: Temperature 98.3, pulse 91, blood pressure 147/73. GENERAL: She is in no acute distress. She is awake and alert. LUNGS: Clear to auscultation bilaterally. HEART: Regular rate and rhythm. ABDOMEN: Soft, nontender, nondistended. Bowel sounds are present. EXTREMITIES: No lower extremity edema. LABORATORY DATA: White blood cell count 10.6 back on 12/31/2017. Creatinine 0.63, albumin 2.8. Vir al hepatitis screen is negative. Mitochondrial antibody is negative. Iron saturation is not elevate d, alpha fetoprotein is 7.9. IMPRESSION: 1. Clostridium difficile colitis. She does not have abdominal pain or distention. Her acute renal failure is improved. 2. Cirrhosis of the liver. Initial lab work has been initiated and she will need to follow up in GI Clinic for further workup of this. RECOMMENDATIONS: 1. Continue vancomycin 125 mg 4 times daily for a 14-day course. 2. She should undergo screening colonoscopy after resolution of her C. difficile colitis as an outpa tient in the future. Upper endoscopy can be performed at the same time for varices screening. 3. Once her diarrhea is under better control, she should discharge back to the detention. She sh ould follow up in GI Clinic in around 4 weeks. 4. I will sign off. Please call if GI can be of assistance.
[2018-01-04] MEDS: risperiDONE 3 MG TAB PO SCH (20:12)
[2018-01-05 05:27] LABS: Albumin 2.8 g/dL (3.5-5.0); Anion Gap 12 mmol/L (10-20); BUN (Urea Nitrogen) 7 mg/dL (9.8-20.1); BUN/Creatinine Ratio 11.48; Calc. Creatinine Clearance 92 mL/min (70-130); Calcium 9.1 mg/dL (7.8-10.44); Carbon Dioxide 29 mmol/L (22-29); Chloride 106 mmol/L (98-107); Estimated GFR-MDRD Greater than 90; Glucose 87 mg/dL (70-105); Phosphorus 3.2 mg/dL (2.3-4.7); Potassium 4.8 mmol/L (3.5-5.1); Sodium 142 mmol/L (136-145)
[2018-01-05] MEDS: Lactated Ringer's 1,000 ML IV SCH ×2 (05:45→16:51)
[2018-01-05] MEDS: Heparin 5,000 UNITS/ML VIAL SC SCH ×2 (08:32→20:00)
[2018-01-05] MEDS: Potassium Chloride 20 MEQ TAB PO SCH (08:32)
[2018-01-05] MEDS: Lithium Carbonate 150 MG CAP PO SCH (08:33)
[2018-01-05] MEDS: Divalproex Sodium 250 MG (DR) TAB PO SCH (08:33)
[2018-01-05] MEDS: Famotidine 20 MG TAB PO SCH (08:34)
[2018-01-05] MEDS: Vancomycin HCl 25 MG/ML Oral PO SCH ×4 (08:34→20:00)
[2018-01-05] MEDS: Rifaximin 550 MG TAB PO SCH ×2 (08:34→19:59)
--- NOTE | 2018-01-05 13:48 | PDOC.PN ---
- Subjective Encounter Start Date: 01/05/18 Encounter Start Time: 12:20 Subjective: no abd pain or nausea -: still having diarrhea, is tolerating oral diet - Objective Resuscitation Status: Resuscitation Status FULL:Full Resuscitation MAR Reviewed: Yes Vital Signs & Weight: Vital Signs (12 hours) Temp Pulse Resp BP Pulse Ox 01/05/18 08:26 92 L 01/05/18 07:20 97.4 F L 86 18 156/73 H 91 L Weight Admit Weight 129 lb 4.8 oz Weight 131 lb 8 oz I&O: 01/04/18 01/05/18 01/06/18 06:59 06:59 06:59 Intake Total 4402 3960 Output Total 5699 9584 8534 Balance -1143 -439 -2851 Result Diagrams: 12/31/17 03:55 01/05/18 03:53 Phys Exam - Physical Examination HEENT: PERRLA, moist MMs Neck: no JVD, supple Respiratory: no wheezing, no rales Cardiovascular: RRR, no significant murmur Gastrointestinal: soft, non-tender, no distention, positive bowel sounds Musculoskeletal: no edema, pulses present Neurological: non-focal, moves all 4 limbs Psychiatric: normal affect, A&O x 3 Dx/Plan (1) Clostridium difficile colitis Status: Acute (2) Acute renal failure Status: Resolved Qualifiers: Acute renal failure type: unspecified Qualified Code(s): N17.9 - Acute kidney failure, unspecified (3) Metabolic acidosis Code(s): E87.2 - ACIDOSIS Status: Resolved (4) Gastroenteritis Code(s): K52.9 - NONINFECTIVE GASTROENTERITIS AND COLITIS, UNSPECIFIED Status : Acute Comment: sec to c.diff colitis (5) Acute encephalopathy Code(s): G93.40 - ENCEPHALOPATHY, UNSPECIFIED Status: Acute Comment: resolving (6) Substance abuse Code(s): F19.10 - OTHER PSYCHOACTIVE SUBSTANCE ABUSE, UNCOMPLICATED Status: Acute Comment: pcp and cocaine, but denies (7) Bipolar disorder Code(s): F31.9 - BIPOLAR DISORDER, UNSPECIFIED Status: Chronic Qualifiers: Active/Remission status: remission status unspecified Qualified Code(s): F31.9 - Bipolar disorder, unspecified (8) Hypertension Code(s): I10 - ESSENTIAL (PRIMARY) HYPERTENSION Status: Chronic Qualifiers: Hypertension type: essential hypertension (9) Tobacco abuse Code(s): Z72.0 - TOBACCO USE Status: Chronic - Plan cdiff is slowly resolving -: on oral vanc and xifaxan -: continue iv hydration till diarrhea resolves -: freq of diarrhea appears to be coming down from yesterday -: is amb with PT, dc plan when diarrhea freq comes down * . Review of Systems - Medications/Allergies Allergies/Adverse Reactions: Allergies Allergy/AdvReac Type Severity Reaction Status Date / Time codeine Allergy Verified 12/30/17 22:48 morphine Allergy Verified 12/30/17 22:48 Penicillins Allergy Verified 12/30/17 22:48 Medications: Current Medications Acetaminophen (Tylenol) 650 mg PO Q4H PRN PRN Reason: Headache/Fever or Pain Divalproex Sodium (Depakote) 500 mg PO HS [facility] Last Admin: 01/03/18 22:08 Dose: 500 mg Divalproex Sodium (Depakote) 250 mg PO DAILY [facility] Last Admin: 01/05/18 08:33 Dose: 250 mg Famotidine (Pepcid) 20 mg PO DAILY [facility] Last Admin: 01/05/18 08:34 Dose: 20 mg Guaifenesin/Dextromethorphan (Robitussin Dm) 15 ml PO Q4H PRN PRN Reason: Cough Last Admin: 01/02/18 21:23 Dose: 15 ml Heparin Sodium (Porcine) (Heparin) 5,000 units SC BID [facility] Last Admin: 01/05/18 08:32 Dose: 5,000 units Lactated Ringer's (Lactated Ringer's) 1,000 mls @ 75 mls/hr IV .[id number] [facility] Last Admin: 01/05/18 05:45 Dose: 1,000 mls [place] Carbonate ([place] Carbonate) 300 mg PO QAM-[facility] Last Admin: 01/05/18 08:33 Dose: 300 mg Ondansetron HCl (Zofran) 4 mg IVP Q6H PRN PRN Reason: Nausea/Vomiting Potassium Chloride (K-Dur) 40 meq PO QAM-[facility] Last Admin: 01/05/18 08:32 Dose: 40 meq Rifaximin (Xifaxan) 550 mg PO BID [facility] Last Admin: 01/05/18 08:34 Dose: 550 mg Risperidone (Risperidone) 3 mg PO [facility] Last Admin: 01/04/18 20:12 Dose: 3 mg Sertraline HCl (Zoloft) 50 mg PO DAILY [facility] Last Admin: 01/05/18 08:33 Dose: 50 mg Vancomycin HCl (First Vancomycin) 125 mg PO QID [facility] Last Admin: 01/05/18 12:49 Dose: 125 mg
[2018-01-05] MEDS: risperiDONE 3 MG TAB PO SCH (20:00)
[2018-01-05] MEDS: Divalproex Sodium DR 500 MG TAB PO SCH (20:00)
[2018-01-06 04:53] LABS: Albumin 2.7 g/dL (3.5-5.0); Anion Gap 14 mmol/L (10-20); BUN (Urea Nitrogen) 9 mg/dL (9.8-20.1); BUN/Creatinine Ratio 15.52; Calc. Creatinine Clearance 97 mL/min (70-130); Calcium 8.8 mg/dL (7.8-10.44); Carbon Dioxide 28 mmol/L (22-29); Chloride 104 mmol/L (98-107); Estimated GFR-MDRD Greater than 90; Glucose 96 mg/dL (70-105); Phosphorus 4.1 mg/dL (2.3-4.7); Potassium 4.6 mmol/L (3.5-5.1); Sodium 141 mmol/L (136-145)
[2018-01-06] MEDS: Lactated Ringer's 1,000 ML IV SCH ×2 (05:56→18:25)
[2018-01-06 08:10] LABS: Hepatitis A IgM ABS Negative (Negative); Hepatitis A Total ABS Negative (Negative)
[2018-01-06] MEDS: Vancomycin HCl 25 MG/ML Oral PO SCH ×4 (08:27→21:05)
[2018-01-06] MEDS: Rifaximin 550 MG TAB PO SCH ×2 (08:28→21:05)
[2018-01-06] MEDS: Heparin 5,000 UNITS/ML VIAL SC SCH ×2 (08:28→21:05)
[2018-01-06] MEDS: Divalproex Sodium 250 MG (DR) TAB PO SCH (08:28)
[2018-01-06] MEDS: Potassium Chloride 20 MEQ TAB PO SCH (08:29)
[2018-01-06] MEDS: Lithium Carbonate 150 MG CAP PO SCH (08:30)
[2018-01-06] MEDS: Famotidine 20 MG TAB PO SCH (08:31)
--- NOTE | 2018-01-06 10:51 | PDOC.PN ---
- Subjective Encounter Start Date: 01/06/18 Encounter Start Time: 10:00 Subjective: diarrhea is getting better, no abd pain -: is eating well -: ambulating in hallway, overall is feeling better - Objective Resuscitation Status: Resuscitation Status FULL:Full Resuscitation MAR Reviewed: Yes Vital Signs & Weight: Vital Signs (12 hours) Temp Pulse Resp BP Pulse Ox 01/06/18 07:14 99.9 F H 97 19 143/75 H 96 Weight Admit Weight 129 lb 4.8 oz Weight 131 lb 8 oz I&O: 01/05/18 01/06/18 01/07/18 06:59 06:59 06:59 Intake Total 3960 4425 Output Total 4600 3991 1150 [place] -229 -3470 -9817 Result Diagrams: 12/31/17 03:55 01/06/18 04:03 Phys Exam - Physical Examination HEENT: PERRLA, moist MMs Neck: no JVD, supple Respiratory: no wheezing, no rales Cardiovascular: RRR, no significant murmur Gastrointestinal: soft, non-tender, no distention, positive bowel sounds Musculoskeletal: no edema, pulses present Neurological: non-focal, moves all 4 limbs Psychiatric: normal affect, A&O x 3 Dx/Plan (1) Clostridium difficile colitis Status: Acute (2) Acute renal failure Status: Resolved Qualifiers: Acute renal failure type: unspecified Qualified Code(s): N17.9 - Acute kidney failure, unspecified (3) Metabolic acidosis Code(s): E87.2 - ACIDOSIS Status: Resolved (4) Gastroenteritis Code(s): K52.9 - NONINFECTIVE GASTROENTERITIS AND COLITIS, UNSPECIFIED Status : Acute Comment: sec to c.diff colitis (5) Acute encephalopathy Code(s): G93.40 - ENCEPHALOPATHY, UNSPECIFIED Status: Acute Comment: resolving (6) Substance abuse Code(s): F19.10 - OTHER PSYCHOACTIVE SUBSTANCE ABUSE, UNCOMPLICATED Status: Acute Comment: pcp and cocaine, but denies (7) Bipolar disorder Code(s): F31.9 - BIPOLAR DISORDER, UNSPECIFIED Status: Chronic Qualifiers: Active/Remission status: remission status unspecified Qualified Code(s): F31.9 - Bipolar disorder, unspecified (8) Hypertension Code(s): I10 - ESSENTIAL (PRIMARY) HYPERTENSION Status: Chronic Qualifiers: Hypertension type: essential hypertension (9) Tobacco abuse Code(s): Z72.0 - TOBACCO USE Status: Chronic - Plan is on oral vanc and xifaxan -: dc iv fluids after current bag -: is recovering well, ambulating in hallway -: continue lithium and risperdal -: stool freq is slowly coming down * . Review of Systems - Medications/Allergies Allergies/Adverse Reactions: Allergies Allergy/AdvReac Type Severity Reaction Status Date / Time codeine Allergy Verified 12/30/17 22:48 morphine Allergy Verified 12/30/17 22:48 Penicillins Allergy Verified 12/30/17 22:48 Medications: Current Medications Acetaminophen (Tylenol) 650 mg PO Q4H PRN PRN Reason: Headache/Fever or Pain Divalproex Sodium (Depakote) 500 mg PO [facility] Last Admin: 01/05/18 20:00 Dose: 500 mg Divalproex Sodium (Depakote) 250 mg PO DAILY [facility] Last Admin: 01/06/18 08:28 Dose: 250 mg Famotidine (Pepcid) 20 mg PO DAILY [facility] Last Admin: 01/06/18 08:31 Dose: 20 mg Guaifenesin/Dextromethorphan (Robitussin Dm) 15 ml PO Q4H PRN PRN Reason: Cough Last Admin: 01/02/18 21:23 Dose: 15 ml Heparin Sodium (Porcine) (Heparin) 5,000 units SC BID [facility] Last Admin: 01/06/18 08:28 Dose: 5,000 units Lactated Ringer's (Lactated Ringer's) 1,000 mls @ 75 mls/hr IV .[id number] [facility] Last Admin: 01/06/18 05:56 Dose: 1,000 mls [place] Carbonate ([place] Carbonate) 300 mg PO QA-[facility] Last Admin: 01/06/18 08:30 Dose: 300 mg Ondansetron HCl (Zofran) 4 mg IVP Q6H PRN PRN Reason: Nausea/Vomiting Potassium Chloride (K-Dur) 40 meq PO QAM-[facility] Last Admin: 01/06/18 08:29 Dose: 40 meq Rifaximin (Xifaxan) 550 mg PO BID [facility] Last Admin: 01/06/18 08:28 Dose: 550 mg Risperidone (Risperidone) 3 mg PO [facility] Last Admin: 01/05/18 20:00 Dose: 3 mg Sertraline HCl (Zoloft) 50 mg PO DAILY [facility] Last Admin: 01/06/18 08:29 Dose: 50 mg Vancomycin HCl (First Vancomycin) 125 mg PO QID [facility] Last Admin: 01/06/18 08:27 Dose: 125 mg
[2018-01-06] MEDS: risperiDONE 3 MG TAB PO SCH (21:05)
[2018-01-06] MEDS: Divalproex Sodium DR 500 MG TAB PO SCH (21:05)
[2018-01-07 05:50] LABS: Albumin 2.9 g/dL (3.5-5.0); Anion Gap 12 mmol/L (10-20); BUN (Urea Nitrogen) 9 mg/dL (9.8-20.1); BUN/Creatinine Ratio 14.75; Calc. Creatinine Clearance 92 mL/min (70-130); Calcium 9.4 mg/dL (7.8-10.44); Carbon Dioxide 29 mmol/L (22-29); Chloride 106 mmol/L (98-107); Estimated GFR-MDRD Greater than 90; Glucose 103 mg/dL (70-105); Phosphorus 3.1 mg/dL (2.3-4.7); Potassium 4.4 mmol/L (3.5-5.1); Sodium 143 mmol/L (136-145)
[2018-01-07] MEDS: Vancomycin HCl 25 MG/ML Oral PO SCH ×4 (08:27→21:42)
[2018-01-07] MEDS: Divalproex Sodium 250 MG (DR) TAB PO SCH (08:28)
[2018-01-07] MEDS: Rifaximin 550 MG TAB PO SCH ×2 (08:29→21:41)
[2018-01-07] MEDS: Lithium Carbonate 150 MG CAP PO SCH (08:29)
[2018-01-07] MEDS: Famotidine 20 MG TAB PO SCH (08:29)
[2018-01-07] MEDS: Potassium Chloride 20 MEQ TAB PO SCH (08:30)
[2018-01-07] MEDS: Heparin 5,000 UNITS/ML VIAL SC SCH ×2 (08:30→21:42)
[2018-01-07] MEDS: Lactated Ringer's 1,000 ML IV SCH (08:37)
--- NOTE | 2018-01-07 12:08 | PDOC.PN ---
- Subjective Encounter Start Date: 01/07/18 Encounter Start Time: 10:30 Subjective: still having diarrhea, had 3 bm's from am per patient -: no sob or abd pain or nausea - Objective Resuscitation Status: Resuscitation Status FULL:Full Resuscitation MAR Reviewed: Yes Vital Signs & Weight: Vital Signs (12 hours) Temp Pulse Resp BP Pulse Ox 01/07/18 08:00 99.3 F 83 19 116/53 L 100 Weight Admit Weight 129 lb 4.8 oz Weight 131 lb 8 oz I&O: 01/06/18 01/07/18 01/08/18 06:59 06:59 06:59 Intake Total 4425 5170 740 Output Total 5650 5300 Balance -1225 -130 740 Result Diagrams: 12/31/17 03:55 01/07/18 04:35 Phys Exam - Physical Examination HEENT: PERRLA, moist MMs Neck: no JVD, supple Respiratory: no wheezing, no rales Cardiovascular: RRR, no significant murmur Gastrointestinal: soft, non-tender, positive bowel sounds Musculoskeletal: no edema, pulses present Neurological: non-focal, moves all 4 limbs Psychiatric: A&O x 3 Dx/Plan (1) Clostridium difficile colitis Status: Acute (2) Acute renal failure Status: Resolved Qualifiers: Acute renal failure type: unspecified Qualified Code(s): N17.9 - Acute kidney failure, unspecified (3) Metabolic acidosis Code(s): E87.2 - ACIDOSIS Status: Resolved (4) Gastroenteritis Code(s): K52.9 - NONINFECTIVE GASTROENTERITIS AND COLITIS, UNSPECIFIED Status : Acute Comment: sec to c.diff colitis (5) Acute encephalopathy Code(s): G93.40 - ENCEPHALOPATHY, UNSPECIFIED Status: Acute Comment: resolving (6) Substance abuse Code(s): F19.10 - OTHER PSYCHOACTIVE SUBSTANCE ABUSE, UNCOMPLICATED Status: Acute Comment: pcp and cocaine, but denies (7) Bipolar disorder Code(s): F31.9 - BIPOLAR DISORDER, UNSPECIFIED Status: Chronic Qualifiers: Active/Remission status: remission status unspecified Qualified Code(s): F31.9 - Bipolar disorder, unspecified (8) Hypertension Code(s): I10 - ESSENTIAL (PRIMARY) HYPERTENSION Status: Chronic Qualifiers: Hypertension type: essential hypertension (9) Tobacco abuse Code(s): Z72.0 - TOBACCO USE Status: Chronic - Plan is on van po and xifaxan -: has severe cdiff colitis and is slowly responding to treatment -: is amb in hallway now, dc iv fluids -: tolerating oral diet, continue lithium and risperdal -: dc plan when freq of diarrhea gets better * . Review of Systems - Medications/Allergies Allergies/Adverse Reactions: Allergies Allergy/AdvReac Type Severity Reaction Status Date / Time codeine Allergy Verified 12/30/17 22:48 morphine Allergy Verified 12/30/17 22:48 Penicillins Allergy Verified 12/30/17 22:48 Medications: Current Medications Acetaminophen (Tylenol) 650 mg PO Q4H PRN PRN Reason: Headache/Fever or Pain Divalproex Sodium (Depakote) 500 mg PO HS [facility] Last Admin: 01/06/18 21:05 Dose: 500 mg Divalproex Sodium (Depakote) 250 mg PO DAILY [facility] Last Admin: 01/07/18 08:28 Dose: 250 mg Famotidine (Pepcid) 20 mg PO DAILY [facility] Last Admin: 01/07/18 08:29 Dose: 20 mg Guaifenesin/Dextromethorphan (Robitussin Dm) 15 ml PO Q4H PRN PRN Reason: Cough Last Admin: 01/02/18 21:23 Dose: 15 ml Heparin Sodium (Porcine) (Heparin) 5,000 units SC BID [facility] Last Admin: 01/07/18 08:30 Dose: 5,000 units [place] Carbonate ([place] Carbonate) 300 mg PO QAM-[facility] Last Admin: 01/07/18 08:29 Dose: 300 mg Ondansetron HCl (Zofran) 4 mg IVP Q6H PRN PRN Reason: Nausea/Vomiting Potassium Chloride (K-Dur) 40 meq PO QAM-[facility] Last Admin: 01/07/18 08:30 Dose: 40 meq Rifaximin (Xifaxan) 550 mg PO BID [facility] Last Admin: 01/07/18 08:29 Dose: 550 mg Risperidone (Risperidone) 3 mg PO HS [facility] Last Admin: 01/06/18 21:05 Dose: 3 mg Sertraline HCl (Zoloft) 50 mg PO DAILY [facility] Last Admin: 01/07/18 08:27 Dose: 50 mg Vancomycin HCl (First Vancomycin) 125 mg PO QID [facility] Last Admin: 01/07/18 08:27 Dose: 125 mg
[2018-01-07 15:20] LABS: Smooth Muscle Total ABS 5 Units (0-19)
[2018-01-07] MEDS: risperiDONE 3 MG TAB PO SCH (21:41)
[2018-01-07] MEDS: Divalproex Sodium DR 500 MG TAB PO SCH (21:41)
[2018-01-08 05:14] LABS: Albumin 3.1 g/dL (3.5-5.0); Anion Gap 12 mmol/L (10-20); BUN (Urea Nitrogen) 14 mg/dL (9.8-20.1); BUN/Creatinine Ratio 17.95; Calc. Creatinine Clearance 72 mL/min (70-130); Carbon Dioxide 29 mmol/L (22-29); Chloride 104 mmol/L (98-107); Estimated GFR-MDRD 75; Glucose 138 mg/dL (70-105); Phosphorus 3.2 mg/dL (2.3-4.7); Potassium 4.7 mmol/L (3.5-5.1); Sodium 140 mmol/L (136-145)
[2018-01-08] MEDS: Rifaximin 550 MG TAB PO SCH ×2 (08:26→20:55)
[2018-01-08] MEDS: Divalproex Sodium 250 MG (DR) TAB PO SCH (08:26)
[2018-01-08] MEDS: Lithium Carbonate 150 MG CAP PO SCH (08:26)
[2018-01-08] MEDS: Heparin 5,000 UNITS/ML VIAL SC SCH ×2 (08:26→20:56)
[2018-01-08] MEDS: Famotidine 20 MG TAB PO SCH (08:26)
[2018-01-08] MEDS: Vancomycin HCl 25 MG/ML Oral PO SCH ×4 (08:26→21:03)
--- NOTE | 2018-01-08 14:19 | PDOC.PN ---
- Subjective Encounter Start Date: 01/08/18 Encounter Start Time: 14:17 Subjective: 3-4 loose stools yesterday -: no abd pain.no N/V - Objective Resuscitation Status: Resuscitation Status FULL:Full Resuscitation MAR Reviewed: Yes Vital Signs & Weight: Vital Signs (12 hours) Temp Pulse Resp BP Pulse Ox 01/08/18 08:00 97.7 F 95 20 125/66 92 L Weight Admit Weight 129 lb 4.8 oz Weight 131 lb 8 oz I&O: 01/07/18 01/08/18 01/09/18 06:59 06:59 06:59 Intake Total 5170 3500 Output Total 5300 4150 Balance -130 -650 Result Diagrams: 12/31/17 03:55 01/08/18 04:09 Additional Labs: Microbiology 12/31/17 00:45 Urine rodriguez catheter Urine Culture - Final NO GROWTH AT 36 HOURS 12/31/17 00:45 Stool - Liquid Stool Culture - Final 12/31/17 00:45 Stool - Liquid Escherichia coli 0157 Culture - Final 12/31/17 00:45 Stool - Liquid Campylobacter Antigen Assay - Final 12/31/17 00:45 Stool - Liquid Shiga Toxin Test - Final 12/31/17 00:45 Stool C. difficile GDH Antigen & Toxins - Final 12/31/17 00:45 Stool Clostridium difficile Toxin A&B PCR - Final 12/30/17 20:16 Venous blood - Right Arm Blood Culture - Final NO GROWTH IN 5 DAYS 12/30/17 18:16 Venous blood - Left Hand Blood Culture - Final NO GROWTH IN 5 DAYS Laboratory Tests 12/30/17 01/04/18 01/04/18 19:30 04:28 04:28 Ur Phencyclidine Scrn Detected H U Cocaine Metab Screen Detected H Hepatitis A IgM Ab Negative Hepatitis A Ab Total Negative Hep Bs Antigen Non-Reactive Hep Bs Antibody Non-Reactive Hep Bs Antibody Index 1.19 Hep B Core Total Ab Non-Reactive Hepatitis C Antibody Non-Reactive Phys Exam - Physical Examination Constitutional: NAD HEENT: PERRLA, moist MMs, sclera anicteric, oral pharynx no lesions Neck: no nodes, no JVD, supple, full ROM Respiratory: no wheezing, no rales, no rhonchi, clear to auscultation bilateral Cardiovascular: RRR, no significant murmur, no rub Gastrointestinal: soft, non-tender, no distention, positive bowel sounds Musculoskeletal: no edema, pulses present Neurological: non-focal, normal sensation, moves all 4 limbs Psychiatric: normal affect, A&O x 3 Skin: no rash Dx/Plan (1) Clostridium difficile colitis Status: Acute (2) Bipolar disorder Code(s): F31.9 - BIPOLAR DISORDER, UNSPECIFIED Status: Chronic Qualifiers: Active/Remission status: remission status unspecified Qualified Code(s): F31.9 - Bipolar disorder, unspecified (3) Dyslipidemia Code(s): E78.5 - HYPERLIPIDEMIA, UNSPECIFIED Status: Chronic (4) Hypertension Code(s): I10 - ESSENTIAL (PRIMARY) HYPERTENSION Status: Chronic Qualifiers: Hypertension type: essential hypertension (5) Tobacco abuse Code(s): Z72.0 - TOBACCO USE Status: Chronic (6) Substance abuse Code(s): F19.10 - OTHER PSYCHOACTIVE SUBSTANCE ABUSE, UNCOMPLICATED Status: Chronic Comment: pcp and cocaine, but denies (7) Acute renal failure Status: Resolved Qualifiers: Acute renal failure type: unspecified Qualified Code(s): N17.9 - Acute kidney failure, unspecified - Plan out of bed/ambulate, DVT proph w/SCDs cont PO vancomycin.add pro biotics -: mckenzie Quintero to [facility] tomorrow am if Bm frequency same or less -: ambulate .OT/PT. -: hemdynamically stable. -: OP f/u w GI * . Review of Systems - Review of Systems Constitutional: negative: fever, chills, sweats, weakness, malaise, other ENT: negative: Ear Pain, Ear Discharge, Nose Pain, Nose Discharge, Nose Congestion, Mouth Pain, Mouth Swelling, Throat Pain, Throat Swelling, Other Respiratory: negative: Cough, Dry, Shortness of Breath, Hemoptysis, SOB with Excertion, Pleuritic Pain, Sputum, Wheezing Cardiovascular: negative: chest pain, palpitations, orthopnea, paroxysmal nocturnal dyspnea, edema, light headedness, other Gastrointestinal: negative: Nausea, Vomiting, Abdominal Pain, Diarrhea, Constipation, Melena, Hematochezia, Other Genitourinary: negative: Dysuria, Frequency, Incontinence, Hematuria, Retention , Other Musculoskeletal: negative: Neck Pain, Shoulder Pain, Arm Pain, Back Pain, Hand Pain, Leg Pain, Foot Pain, Other Skin: negative: Rash, Lesions, Cecil, Bruising, Other Neurological: negative: Weakness, Numbness, Incoordination, Change in Speech, Confusion, Seizures, Other - Medications/Allergies Allergies/Adverse Reactions: Allergies Allergy/AdvReac Type Severity Reaction Status Date / Time codeine Allergy Verified 12/30/17 22:48 morphine Allergy Verified 12/30/17 22:48 Penicillins Allergy Verified 12/30/17 22:48 Medications: Current Medications Acetaminophen (Tylenol) 650 mg PO Q4H PRN PRN Reason: Headache/Fever or Pain Divalproex Sodium (Depakote) 500 mg PO HS [facility] Last Admin: 01/07/18 21:41 Dose: 500 mg Divalproex Sodium (Depakote) 250 mg PO DAILY [facility] Last Admin: 01/08/18 08:26 Dose: 250 mg Famotidine (Pepcid) 20 mg PO DAILY [facility] Last Admin: 01/08/18 08:26 Dose: 20 mg Guaifenesin/Dextromethorphan (Robitussin Dm) 15 ml PO Q4H PRN PRN Reason: Cough Last Admin: 01/02/18 21:23 Dose: 15 ml Heparin Sodium (Porcine) (Heparin) 5,000 units SC BID [facility] Last Admin: 01/08/18 08:26 Dose: 5,000 units [place] Carbonate ([place] Carbonate) 300 mg PO QA-[facility] Last Admin: 01/08/18 08:26 Dose: 300 mg Ondansetron HCl (Zofran) 4 mg IVP Q6H PRN PRN Reason: Nausea/Vomiting Rifaximin (Xifaxan) 550 mg PO BID [facility] Last Admin: 01/08/18 08:26 Dose: 550 mg Risperidone (Risperidone) 3 mg PO HS [facility] Last Admin: 01/07/18 21:41 Dose: 3 mg Saccharomyces Boulardii (Florastor) 250 mg PO DAILY [facility] Sertraline HCl (Zoloft) 50 mg PO DAILY [facility] Last Admin: 01/08/18 08:26 Dose: 50 mg Vancomycin HCl (First Vancomycin) 125 mg PO QID [facility] Last Admin: 01/08/18 12:23 Dose: 125 mg
[2018-01-08] MEDS ORDERED: Saccharomyces boulardii 250 MG CAP PO SCH (14:30)
[2018-01-08] MEDS: risperiDONE 3 MG TAB PO SCH (20:55)
[2018-01-08] MEDS: Divalproex Sodium DR 500 MG TAB PO SCH (20:56)
[2018-01-09 05:31] LABS: Albumin 3.1 g/dL (3.5-5.0); Anion Gap 12 mmol/L (10-20); BUN (Urea Nitrogen) 18 mg/dL (9.8-20.1); BUN/Creatinine Ratio 25.35; Calc. Creatinine Clearance 79 mL/min (70-130); Carbon Dioxide 28 mmol/L (22-29); Chloride 104 mmol/L (98-107); Estimated GFR-MDRD 84; Glucose 87 mg/dL (70-105); Phosphorus 4.2 mg/dL (2.3-4.7); Potassium 4.7 mmol/L (3.5-5.1); Sodium 139 mmol/L (136-145)
[2018-01-09] MEDS: Lithium Carbonate 150 MG CAP PO SCH (08:46)
[2018-01-09] MEDS: Divalproex Sodium 250 MG (DR) TAB PO SCH (08:47)
[2018-01-09] MEDS: Famotidine 20 MG TAB PO SCH (08:47)
[2018-01-09] MEDS: Heparin 5,000 UNITS/ML VIAL SC SCH ×2 (08:47→20:21)
[2018-01-09] MEDS: Saccharomyces boulardii 250 MG CAP PO SCH (08:47)
[2018-01-09] MEDS: Rifaximin 550 MG TAB PO SCH ×2 (08:47→20:20)
[2018-01-09] MEDS: Vancomycin HCl 25 MG/ML Oral PO SCH ×4 (08:48→20:20)
[2018-01-09 09:21] LABS: A1 Antitrypsin Phenotype Inter MZ (.); Alpha-1-Antitrypsin 88 mg/dL (90-200)
--- NOTE | 2018-01-09 15:42 | PDOC.PN ---
- Subjective Encounter Start Date: 01/09/18 Encounter Start Time: 15:41 Subjective: feels much better. 2-3 soft BM -: no N/V - Objective Resuscitation Status: Resuscitation Status FULL:Full Resuscitation MAR Reviewed: Yes Vital Signs & Weight: Vital Signs (12 hours) Temp Pulse Resp BP Pulse Ox 01/09/18 11:39 98.0 F 71 16 122/73 93 L 01/09/18 08:00 92 L 01/09/18 07:26 98.5 F 99 18 145/56 H 92 L 01/09/18 04:29 97.9 F 90 16 136/74 92 L Weight Admit Weight 129 lb 4.8 oz Weight 131 lb 8 oz I&O: 01/08/18 01/09/18 01/10/18 06:59 06:59 06:59 Intake Total 3500 720 Output Total 4150 2800 Balance -650 -2080 Result Diagrams: 12/31/17 03:55 01/09/18 04:12 Phys Exam - Physical Examination Constitutional: NAD HEENT: PERRLA, moist MMs, sclera anicteric, oral pharynx no lesions Neck: no nodes, no JVD, supple, full ROM Respiratory: no wheezing, no rales, no rhonchi, clear to auscultation bilateral Cardiovascular: RRR, no significant murmur, no rub Gastrointestinal: soft, non-tender, no distention, positive bowel sounds Musculoskeletal: no edema, pulses present Neurological: non-focal, normal sensation, moves all 4 limbs Psychiatric: normal affect, A&O x 3 Skin: no rash Dx/Plan (1) Clostridium difficile colitis Status: Acute (2) Bipolar disorder Code(s): F31.9 - BIPOLAR DISORDER, UNSPECIFIED Status: Chronic Qualifiers: Active/Remission status: remission status unspecified Qualified Code(s): F31.9 - Bipolar disorder, unspecified (3) Dyslipidemia Code(s): E78.5 - HYPERLIPIDEMIA, UNSPECIFIED Status: Chronic (4) Hypertension Code(s): I10 - ESSENTIAL (PRIMARY) HYPERTENSION Status: Chronic Qualifiers: Hypertension type: essential hypertension (5) Tobacco abuse Code(s): Z72.0 - TOBACCO USE Status: Chronic (6) Substance abuse Code(s): F19.10 - OTHER PSYCHOACTIVE SUBSTANCE ABUSE, UNCOMPLICATED Status: Chronic Comment: pcp and cocaine, but denies (7) Acute renal failure Status: Resolved Qualifiers: Acute renal failure type: unspecified Qualified Code(s): N17.9 - Acute kidney failure, unspecified - Plan DVT proph w/SCDs [facility] today on Po vancomycin -: clinically better and Hd stable. * . Review of Systems - Review of Systems Constitutional: weakness, malaise. negative: fever, chills, sweats, other Respiratory: negative: Cough, Dry, Shortness of Breath, Hemoptysis, SOB with Excertion, Pleuritic Pain, Sputum, Wheezing Cardiovascular: negative: chest pain, palpitations, orthopnea, paroxysmal nocturnal dyspnea, edema, light headedness, other Gastrointestinal: negative: Nausea, Vomiting, Abdominal Pain, Diarrhea, Constipation, Melena, Hematochezia, Other Genitourinary: negative: Dysuria, Frequency, Incontinence, Hematuria, Retention , Other Musculoskeletal: negative: Neck Pain, Shoulder Pain, Arm Pain, Back Pain, Hand Pain, Leg Pain, Foot Pain, Other Neurological: negative: Weakness, Numbness, Incoordination, Change in Speech, Confusion, Seizures, Other - Medications/Allergies Allergies/Adverse Reactions: Allergies Allergy/AdvReac Type Severity Reaction Status Date / Time codeine Allergy Verified 12/30/17 22:48 morphine Allergy Verified 12/30/17 22:48 Penicillins Allergy Verified 12/30/17 22:48 Medications: Current Medications Acetaminophen (Tylenol) 650 mg PO Q4H PRN PRN Reason: Headache/Fever or Pain Divalproex Sodium (Depakote) 500 mg PO HS [facility] Last Admin: 01/08/18 20:56 Dose: 500 mg Divalproex Sodium (Depakote) 250 mg PO DAILY [facility] Last Admin: 01/09/18 08:47 Dose: 250 mg Famotidine (Pepcid) 20 mg PO DAILY [facility] Last Admin: 01/09/18 08:47 Dose: 20 mg Guaifenesin/Dextromethorphan (Robitussin Dm) 15 ml PO Q4H PRN PRN Reason: Cough Last Admin: 01/02/18 21:23 Dose: 15 ml Heparin Sodium (Porcine) (Heparin) 5,000 units SC BID [facility] Last Admin: 01/09/18 08:47 Dose: 5,000 units [place] Carbonate ([place] Carbonate) 300 mg PO QA-[facility] Last Admin: 01/09/18 08:46 Dose: 300 mg Ondansetron HCl (Zofran) 4 mg IVP Q6H PRN PRN Reason: Nausea/Vomiting Rifaximin (Xifaxan) 550 mg PO BID [facility] Last Admin: 01/09/18 08:47 Dose: 550 mg Risperidone (Risperidone) 3 mg PO HS [facility] Last Admin: 01/08/18 20:55 Dose: 3 mg Saccharomyces Boulardii (Florastor) 250 mg PO DAILY [facility] Last Admin: 01/09/18 08:47 Dose: 250 mg Sertraline HCl (Zoloft) 50 mg PO DAILY [facility] Last Admin: 01/09/18 08:47 Dose: 50 mg Vancomycin HCl (First Vancomycin) 125 mg PO QID [facility] Last Admin: 01/09/18 13:22 Dose: 125 mg
[2018-01-09] MEDS: risperiDONE 3 MG TAB PO SCH (20:20)
[2018-01-09] MEDS: Divalproex Sodium DR 500 MG TAB PO SCH (20:20)
[2018-01-10 05:32] LABS: Albumin 3.3 g/dL (3.5-5.0); Anion Gap 12 mmol/L (10-20); BUN (Urea Nitrogen) 21 mg/dL (9.8-20.1); BUN/Creatinine Ratio 29.17; Calc. Creatinine Clearance 78 mL/min (70-130); Calcium 10.3 mg/dL (7.8-10.44); Carbon Dioxide 27 mmol/L (22-29); Chloride 105 mmol/L (98-107); Estimated GFR-MDRD 83; Glucose 92 mg/dL (70-105); Phosphorus 3.9 mg/dL (2.3-4.7); Potassium 4.7 mmol/L (3.5-5.1); Sodium 139 mmol/L (136-145)
[2018-01-10] MEDS: Vancomycin HCl 25 MG/ML Oral PO SCH ×3 (10:03→17:44)
[2018-01-10] MEDS: Saccharomyces boulardii 250 MG CAP PO SCH (10:04)
[2018-01-10] MEDS: Famotidine 20 MG TAB PO SCH (10:04)
[2018-01-10] MEDS: Rifaximin 550 MG TAB PO SCH ×2 (10:04→20:17)
[2018-01-10] MEDS: Heparin 5,000 UNITS/ML VIAL SC SCH ×2 (10:04→20:17)
[2018-01-10] MEDS: Lithium Carbonate 150 MG CAP PO SCH (10:04)
[2018-01-10] MEDS: Divalproex Sodium 250 MG (DR) TAB PO SCH (10:05)
--- NOTE | 2018-01-10 13:38 | PDOC.PN ---
- Subjective Encounter Start Date: 01/10/18 Encounter Start Time: 13:36 Subjective: feels OK. no abd pain.appetite good.no N/V -: 3-4 soft BMs - Objective Resuscitation Status: Resuscitation Status FULL:Full Resuscitation MAR Reviewed: Yes Vital Signs & Weight: Vital Signs (12 hours) Temp Pulse Resp BP Pulse Ox 01/10/18 08:01 97.6 F 95 18 132/71 95 01/10/18 08:00 95 01/10/18 06:58 98.9 F 108 H 20 112/69 90 L Weight Admit Weight 129 lb 4.8 oz Weight 131 lb 8 oz I&O: 01/09/18 01/10/18 01/11/18 06:59 06:59 06:59 Intake Total 720 1470 240 Output Total 2800 3700 Balance -2080 -2230 240 Result Diagrams: 12/31/17 03:55 01/10/18 04:25 Additional Labs: Microbiology 12/31/17 00:45 Urine rodriguez catheter Urine Culture - Final NO GROWTH AT 36 HOURS 12/31/17 00:45 Stool - Liquid Stool Culture - Final 12/31/17 00:45 Stool - Liquid Escherichia coli 0157 Culture - Final 12/31/17 00:45 Stool - Liquid Campylobacter Antigen Assay - Final 12/31/17 00:45 Stool - Liquid Shiga Toxin Test - Final 12/31/17 00:45 Stool C. difficile GDH Antigen & Toxins - Final 12/31/17 00:45 Stool Clostridium difficile Toxin A&B PCR - Final 12/30/17 20:16 Venous blood - Right Arm Blood Culture - Final NO GROWTH IN 5 DAYS 12/30/17 18:16 Venous blood - Left Hand Blood Culture - Final NO GROWTH IN 5 DAYS Phys Exam - Physical Examination Constitutional: NAD HEENT: PERRLA, moist MMs, sclera anicteric, oral pharynx no lesions Neck: no nodes, no JVD, supple, full ROM Respiratory: no wheezing, no rales, no rhonchi, clear to auscultation bilateral Cardiovascular: RRR, no significant murmur, no rub Gastrointestinal: soft, non-tender, no distention, positive bowel sounds Musculoskeletal: no edema, pulses present Neurological: non-focal, normal sensation, moves all 4 limbs Psychiatric: normal affect, A&O x 3 Skin: no rash Dx/Plan (1) Clostridium difficile colitis Status: Acute (2) Bipolar disorder Code(s): F31.9 - BIPOLAR DISORDER, UNSPECIFIED Status: Chronic Qualifiers: Active/Remission status: remission status unspecified Qualified Code(s): F31.9 - Bipolar disorder, unspecified (3) Dyslipidemia Code(s): E78.5 - HYPERLIPIDEMIA, UNSPECIFIED Status: Chronic (4) Hypertension Code(s): I10 - ESSENTIAL (PRIMARY) HYPERTENSION Status: Chronic Qualifiers: Hypertension type: essential hypertension (5) Tobacco abuse Code(s): Z72.0 - TOBACCO USE Status: Chronic (6) Substance abuse Code(s): F19.10 - OTHER PSYCHOACTIVE SUBSTANCE ABUSE, UNCOMPLICATED Status: Chronic Comment: pcp and cocaine, but denies (7) Acute renal failure Status: Resolved Qualifiers: Acute renal failure type: unspecified Qualified Code(s): N17.9 - Acute kidney failure, unspecified - Plan DC to rehab when accpeted.awaitinf Passr form . -: avoidable day #1 -: cont rifaximin ,vanco PO.florastor -: hemodynamically stable.supportive care -: DC rodriguez prior to DC * . Review of Systems - Review of Systems Constitutional: weakness, malaise. negative: fever, chills, sweats, other Respiratory: negative: Cough, Dry, Shortness of Breath, Hemoptysis, SOB with Excertion, Pleuritic Pain, Sputum, Wheezing Cardiovascular: negative: chest pain, palpitations, orthopnea, paroxysmal nocturnal dyspnea, edema, light headedness, other Gastrointestinal: negative: Nausea, Vomiting, Abdominal Pain, Diarrhea, Constipation, Melena, Hematochezia, Other Genitourinary: negative: Dysuria, Frequency, Incontinence, Hematuria, Retention , Other Musculoskeletal: negative: Neck Pain, Shoulder Pain, Arm Pain, Back Pain, Hand Pain, Leg Pain, Foot Pain, Other Neurological: negative: Weakness, Numbness, Incoordination, Change in Speech, Confusion, Seizures, Other - Medications/Allergies Allergies/Adverse Reactions: Allergies Allergy/AdvReac Type Severity Reaction Status Date / Time codeine Allergy Verified 12/30/17 22:48 morphine Allergy Verified 12/30/17 22:48 Penicillins Allergy Verified 12/30/17 22:48 Medications: Current Medications Acetaminophen (Tylenol) 650 mg PO Q4H PRN PRN Reason: Headache/Fever or Pain Divalproex Sodium (Depakote) 500 mg PO HS [facility] Last Admin: 01/09/18 20:20 Dose: 500 mg Divalproex Sodium (Depakote) 250 mg PO DAILY [facility] Last Admin: 01/10/18 10:05 Dose: 250 mg Famotidine (Pepcid) 20 mg PO DAILY [facility] Last Admin: 01/10/18 10:04 Dose: 20 mg Guaifenesin/Dextromethorphan (Robitussin Dm) 15 ml PO Q4H PRN PRN Reason: Cough Last Admin: 01/02/18 21:23 Dose: 15 ml Heparin Sodium (Porcine) (Heparin) 5,000 units SC BID [facility] Last Admin: 01/10/18 10:04 Dose: 5,000 units [place] Carbonate ([place] Carbonate) 300 mg PO QAM-[facility] Last Admin: 01/10/18 10:04 Dose: 300 mg Ondansetron HCl (Zofran) 4 mg IVP Q6H PRN PRN Reason: Nausea/Vomiting Rifaximin (Xifaxan) 550 mg PO BID [facility] Last Admin: 01/10/18 10:04 Dose: 550 mg Risperidone (Risperidone) 3 mg PO HS [facility] Last Admin: 01/09/18 20:20 Dose: 3 mg Saccharomyces Boulardii (Florastor) 250 mg PO DAILY [facility] Last Admin: 01/10/18 10:04 Dose: 250 mg Sertraline HCl (Zoloft) 50 mg PO DAILY [facility] Last Admin: 01/10/18 10:04 Dose: 50 mg Vancomycin HCl (First Vancomycin) 125 mg PO QID [facility] Last Admin: 01/10/18 12:27 Dose: 125 mg
[2018-01-10] MEDS: risperiDONE 3 MG TAB PO SCH (20:17)
[2018-01-10] MEDS: Divalproex Sodium DR 500 MG TAB PO SCH (20:17)
[2018-01-11] MEDS: Saccharomyces boulardii 250 MG CAP PO SCH (08:21)
[2018-01-11] MEDS: Heparin 5,000 UNITS/ML VIAL SC SCH ×2 (08:21→22:13)
[2018-01-11] MEDS: Famotidine 20 MG TAB PO SCH (08:21)
[2018-01-11] MEDS: Divalproex Sodium 250 MG (DR) TAB PO SCH (08:21)
[2018-01-11] MEDS: Rifaximin 550 MG TAB PO SCH ×2 (08:21→22:12)
[2018-01-11 12:53] LABS: Albumin 3.5 g/dL (3.5-5.0); Anion Gap 16 mmol/L (10-20); BUN (Urea Nitrogen) 18 mg/dL (9.8-20.1); BUN/Creatinine Ratio 23.68; Calc. Creatinine Clearance 74 mL/min (70-130); Calcium 10.5 mg/dL (7.8-10.44); Carbon Dioxide 21 mmol/L (22-29); Chloride 107 mmol/L (98-107); Estimated GFR-MDRD 78; Glucose 72 mg/dL (70-105); Potassium 4.9 mmol/L (3.5-5.1); Sodium 139 mmol/L (136-145)
[2018-01-11] MEDS: Lithium Carbonate 150 MG CAP PO SCH (13:25)
--- NOTE | 2018-01-11 14:41 | PDOC.PN ---
- Subjective Encounter Start Date: 01/11/18 Encounter Start Time: 13:11 - Objective Resuscitation Status: Resuscitation Status FULL:Full Resuscitation Vital Signs & Weight: Vital Signs (12 hours) Temp Pulse Resp BP Pulse Ox 01/11/18 12:12 97.8 F 79 18 96/63 92 L 01/11/18 08:00 98.5 F 108 H 20 101/67 91 L Weight Admit Weight 129 lb 4.8 oz Weight 131 lb 8 oz I&O: 01/10/18 01/11/18 01/12/18 06:59 06:59 06:59 Intake Total 1470 1520 Output Total 3700 1975 Balance -4610 455 Result Diagrams: 12/31/17 03:55 01/11/18 03:30 Dx/Plan (1) Clostridium difficile colitis Status: Acute (2) Bipolar disorder Code(s): F31.9 - BIPOLAR DISORDER, UNSPECIFIED Status: Chronic Qualifiers: Active/Remission status: remission status unspecified Qualified Code(s): F31.9 - Bipolar disorder, unspecified (3) Dyslipidemia Code(s): E78.5 - HYPERLIPIDEMIA, UNSPECIFIED Status: Chronic (4) Hypertension Code(s): I10 - ESSENTIAL (PRIMARY) HYPERTENSION Status: Chronic Qualifiers: Hypertension type: essential hypertension (5) Tobacco abuse Code(s): Z72.0 - TOBACCO USE Status: Chronic (6) Substance abuse Code(s): F19.10 - OTHER PSYCHOACTIVE SUBSTANCE ABUSE, UNCOMPLICATED Status: Chronic Comment: pcp and cocaine, but denies (7) Acute renal failure Status: Resolved Qualifiers: Acute renal failure type: unspecified Qualified Code(s): N17.9 - Acute kidney failure, unspecified - Plan * . Review of Systems - Review of Systems Constitutional: weakness, malaise. negative: fever, chills, sweats, other ENT: negative: Ear Pain, Ear Discharge, Nose Pain, Nose Discharge, Nose Congestion, Mouth Pain, Mouth Swelling, Throat Pain, Throat Swelling, Other Respiratory: negative: Cough, Dry, Shortness of Breath, Hemoptysis, SOB with Excertion, Pleuritic Pain, Sputum, Wheezing Cardiovascular: negative: chest pain, palpitations, orthopnea, paroxysmal nocturnal dyspnea, edema, light headedness, other Gastrointestinal: Diarrhea. negative: Nausea, Vomiting, Abdominal Pain, Constipation, Melena, Hematochezia, Other Genitourinary: negative: Dysuria, Frequency, Incontinence, Hematuria, Retention , Other Musculoskeletal: negative: Neck Pain, Shoulder Pain, Arm Pain, Back Pain, Hand Pain, Leg Pain, Foot Pain, Other Neurological: negative: Weakness, Numbness, Incoordination, Change in Speech, Confusion, Seizures, Other - Medications/Allergies Allergies/Adverse Reactions: Allergies Allergy/AdvReac Type Severity Reaction Status Date / Time codeine Allergy Verified 12/30/17 22:48 morphine Allergy Verified 12/30/17 22:48 Penicillins Allergy Verified 12/30/17 22:48 Medications: Current Medications Acetaminophen (Tylenol) 650 mg PO Q4H PRN PRN Reason: Headache/Fever or Pain Divalproex Sodium (Depakote) 500 mg PO HS [facility] Last Admin: 01/10/18 20:17 Dose: 500 mg Divalproex Sodium (Depakote) 250 mg PO DAILY [facility] Last Admin: 01/11/18 08:21 Dose: 250 mg Famotidine (Pepcid) 20 mg PO DAILY [facility] Last Admin: 01/11/18 08:21 Dose: 20 mg Guaifenesin/Dextromethorphan (Robitussin Dm) 15 ml PO Q4H PRN PRN Reason: Cough Last Admin: 01/02/18 21:23 Dose: 15 ml Heparin Sodium (Porcine) (Heparin) 5,000 units SC BID [facility] Last Admin: 01/11/18 08:21 Dose: 5,000 units [place] Carbonate ([place] Carbonate) 300 mg PO QA-[facility] Last Admin: 01/10/18 10:04 Dose: 300 mg Ondansetron HCl (Zofran) 4 mg IVP Q6H PRN PRN Reason: Nausea/Vomiting Rifaximin (Xifaxan) 550 mg PO BID [facility] Last Admin: 01/11/18 08:21 Dose: 550 mg Risperidone (Risperidone) 3 mg PO HS [facility] Last Admin: 01/10/18 20:17 Dose: 3 mg Saccharomyces Boulardii (Florastor) 250 mg PO DAILY [facility] Last Admin: 01/11/18 08:21 Dose: 250 mg Sertraline HCl (Zoloft) 50 mg PO DAILY [facility] Last Admin: 01/11/18 08:21 Dose: 50 mg
--- NOTE | 2018-01-11 15:13 | PDOC.PN ---
- Subjective Encounter Start Date: 01/11/18 Encounter Start Time: 15:12 Subjective: feels better.still having 4-5 loose stools -: no abd pain/N/V - Objective Resuscitation Status: Resuscitation Status FULL:Full Resuscitation MAR Reviewed: Yes Vital Signs & Weight: Vital Signs (12 hours) Temp Pulse Resp BP Pulse Ox 01/11/18 12:12 97.8 F 79 18 96/63 92 L 01/11/18 08:00 98.5 F 108 H 20 101/67 91 L Weight Admit Weight 129 lb 4.8 oz Weight 131 lb 8 oz I&O: 01/10/18 01/11/18 01/12/18 06:59 06:59 06:59 Intake Total 1470 1520 Output Total 3700 1975 Balance -2230 -455 Result Diagrams: 12/31/17 03:55 01/11/18 03:30 Additional Labs: Microbiology 12/31/17 00:45 Urine rodriguez catheter Urine Culture - Final NO GROWTH AT 36 HOURS 12/31/17 00:45 Stool - Liquid Stool Culture - Final 12/31/17 00:45 Stool - Liquid Escherichia coli 0157 Culture - Final 12/31/17 00:45 Stool - Liquid Campylobacter Antigen Assay - Final 12/31/17 00:45 Stool - Liquid Shiga Toxin Test - Final 12/31/17 00:45 Stool C. difficile GDH Antigen & Toxins - Final 12/31/17 00:45 Stool Clostridium difficile Toxin A&B PCR - Final 12/30/17 20:16 Venous blood - Right Arm Blood Culture - Final NO GROWTH IN 5 DAYS 12/30/17 18:16 Venous blood - Left Hand Blood Culture - Final NO GROWTH IN 5 DAYS Phys Exam - Physical Examination Constitutional: NAD HEENT: PERRLA, moist MMs, sclera anicteric, oral pharynx no lesions Neck: no nodes, no JVD, supple, full ROM Respiratory: no wheezing, no rales, no rhonchi, clear to auscultation bilateral Cardiovascular: RRR, no significant murmur, no rub Gastrointestinal: soft, non-tender, no distention, positive bowel sounds Musculoskeletal: no edema, pulses present Neurological: non-focal, normal sensation, moves all 4 limbs Psychiatric: normal affect, A&O x 3 Skin: no rash Dx/Plan (1) Clostridium difficile colitis Status: Acute Comment: on PO vanco (2) Bipolar disorder Code(s): F31.9 - BIPOLAR DISORDER, UNSPECIFIED Status: Chronic Qualifiers: Active/Remission status: remission status unspecified Qualified Code(s): F31.9 - Bipolar disorder, unspecified (3) Dyslipidemia Code(s): E78.5 - HYPERLIPIDEMIA, UNSPECIFIED Status: Chronic (4) Hypertension Code(s): I10 - ESSENTIAL (PRIMARY) HYPERTENSION Status: Chronic Qualifiers: Hypertension type: essential hypertension (5) Tobacco abuse Code(s): Z72.0 - TOBACCO USE Status: Chronic (6) Substance abuse Code(s): F19.10 - OTHER PSYCHOACTIVE SUBSTANCE ABUSE, UNCOMPLICATED Status: Chronic Comment: pcp and cocaine, but denies (7) Acute renal failure Status: Resolved Qualifiers: Acute renal failure type: unspecified Qualified Code(s): N17.9 - Acute kidney failure, unspecified - Plan continue antibiotics, out of bed/ambulate, DVT proph w/SCDs Cont Rifaximin and PO vancomycin -: still very weak and not able to take care of herself -: High risk of fall,decompensation & re admission if sent home -: needs placement. message left w Peer to peer w the insurance company -: active APS case ongoing.will follow * . Review of Systems - Review of Systems Constitutional: negative: fever, chills, sweats, weakness, malaise, other ENT: negative: Ear Pain, Ear Discharge, Nose Pain, Nose Discharge, Nose Congestion, Mouth Pain, Mouth Swelling, Throat Pain, Throat Swelling, Other Respiratory: negative: Cough, Dry, Shortness of Breath, Hemoptysis, SOB with Excertion, Pleuritic Pain, Sputum, Wheezing Cardiovascular: negative: chest pain, palpitations, orthopnea, paroxysmal nocturnal dyspnea, edema, light headedness, other Gastrointestinal: Diarrhea. negative: Nausea, Vomiting, Abdominal Pain, Constipation, Melena, Hematochezia, Other Genitourinary: negative: Dysuria, Frequency, Incontinence, Hematuria, Retention , Other Musculoskeletal: negative: Neck Pain, Shoulder Pain, Arm Pain, Back Pain, Hand Pain, Leg Pain, Foot Pain, Other Skin: negative: Rash, Lesions, Cecil, Bruising, Other Neurological: negative: Weakness, Numbness, Incoordination, Change in Speech, Confusion, Seizures, Other - Medications/Allergies Allergies/Adverse Reactions: Allergies Allergy/AdvReac Type Severity Reaction Status Date / Time codeine Allergy Verified 12/30/17 22:48 morphine Allergy Verified 12/30/17 22:48 Penicillins Allergy Verified 12/30/17 22:48 Medications: Current Medications Acetaminophen (Tylenol) 650 mg PO Q4H PRN PRN Reason: Headache/Fever or Pain Divalproex Sodium (Depakote) 500 mg PO HS [facility] Last Admin: 01/10/18 20:17 Dose: 500 mg Divalproex Sodium (Depakote) 250 mg PO DAILY [facility] Last Admin: 01/11/18 08:21 Dose: 250 mg Famotidine (Pepcid) 20 mg PO DAILY [facility] Last Admin: 01/11/18 08:21 Dose: 20 mg Guaifenesin/Dextromethorphan (Robitussin Dm) 15 ml PO Q4H PRN PRN Reason: Cough Last Admin: 01/02/18 21:23 Dose: 15 ml Heparin Sodium (Porcine) (Heparin) 5,000 units SC BID [facility] Last Admin: 01/11/18 08:21 Dose: 5,000 units [place] Carbonate ([place] Carbonate) 300 mg PO QA-[facility] Last Admin: 01/11/18 13:25 Dose: 300 mg Ondansetron HCl (Zofran) 4 mg IVP Q6H PRN PRN Reason: Nausea/Vomiting Rifaximin (Xifaxan) 550 mg PO BID [facility] Last Admin: 01/11/18 08:21 Dose: 550 mg Risperidone (Risperidone) 3 mg PO HS [facility] Last Admin: 01/10/18 20:17 Dose: 3 mg Saccharomyces Boulardii (Florastor) 250 mg PO DAILY [facility] Last Admin: 01/11/18 08:21 Dose: 250 mg Sertraline HCl (Zoloft) 50 mg PO DAILY [facility] Last Admin: 01/11/18 08:21 Dose: 50 mg
[2018-01-11] MEDS: Divalproex Sodium DR 500 MG TAB PO SCH (22:12)
[2018-01-12] MEDS: risperiDONE 3 MG TAB PO SCH ×2 (00:42→19:56)
[2018-01-12 05:31] LABS: Albumin 3.4 g/dL (3.5-5.0); Anion Gap 13 mmol/L (10-20); BUN (Urea Nitrogen) 18 mg/dL (9.8-20.1); Calc. Creatinine Clearance 78 mL/min (70-130); Calcium 10.1 mg/dL (7.8-10.44); Carbon Dioxide 22 mmol/L (22-29); Chloride 107 mmol/L (98-107); Estimated GFR-MDRD 83; Glucose 96 mg/dL (70-105); Phosphorus 3.7 mg/dL (2.3-4.7); Potassium 4.2 mmol/L (3.5-5.1); Sodium 138 mmol/L (136-145)
[2018-01-12] MEDS: Saccharomyces boulardii 250 MG CAP PO SCH (07:51)
[2018-01-12] MEDS: Divalproex Sodium 250 MG (DR) TAB PO SCH (07:52)
[2018-01-12] MEDS: Rifaximin 550 MG TAB PO SCH ×2 (07:52→19:55)
[2018-01-12] MEDS: Famotidine 20 MG TAB PO SCH (07:52)
[2018-01-12] MEDS: Heparin 5,000 UNITS/ML VIAL SC SCH ×2 (07:58→19:56)
[2018-01-12] MEDS: Lithium Carbonate 150 MG CAP PO SCH (07:58)
--- NOTE | 2018-01-12 14:52 | PDOC.PN ---
- Subjective Encounter Start Date: 01/12/18 Encounter Start Time: 14:50 Subjective: pt still having 3-4 loos estools daily w/o pain/n/v -: no fever/chills - Objective Resuscitation Status: Resuscitation Status FULL:Full Resuscitation MAR Reviewed: Yes Vital Signs & Weight: Vital Signs (12 hours) Temp Pulse Resp BP Pulse Ox 01/12/18 08:00 97.8 F 90 18 115/66 94 L Weight Admit Weight 129 lb 4.8 oz Weight 131 lb 8 oz I&O: 01/11/18 01/12/18 01/13/18 06:59 06:59 06:59 Intake Total 1520 1750 Output Total 1975 2350 Balance -455 -600 Result Diagrams: 12/31/17 03:55 01/12/18 04:35 Phys Exam - Physical Examination Constitutional: NAD HEENT: PERRLA, moist MMs, sclera anicteric, oral pharynx no lesions Neck: no nodes, no JVD, supple, full ROM Respiratory: no wheezing, no rales, no rhonchi, clear to auscultation bilateral Cardiovascular: RRR, no significant murmur, no rub Gastrointestinal: soft, non-tender, no distention, positive bowel sounds Musculoskeletal: no edema, pulses present Neurological: non-focal, normal sensation, moves all 4 limbs Psychiatric: normal affect, A&O x 3 Skin: no rash Dx/Plan (1) Clostridium difficile colitis Status: Acute Comment: on PO vanco and Xifaxan (2) Bipolar disorder Code(s): F31.9 - BIPOLAR DISORDER, UNSPECIFIED Status: Chronic Qualifiers: Active/Remission status: remission status unspecified Qualified Code(s): F31.9 - Bipolar disorder, unspecified (3) Dyslipidemia Code(s): E78.5 - HYPERLIPIDEMIA, UNSPECIFIED Status: Chronic (4) Hypertension Code(s): I10 - ESSENTIAL (PRIMARY) HYPERTENSION Status: Chronic Qualifiers: Hypertension type: essential hypertension (5) Tobacco abuse Code(s): Z72.0 - TOBACCO USE Status: Chronic (6) Substance abuse Code(s): F19.10 - OTHER PSYCHOACTIVE SUBSTANCE ABUSE, UNCOMPLICATED Status: Chronic Comment: pcp and cocaine, but denies (7) Acute renal failure Status: Resolved Qualifiers: Acute renal failure type: unspecified Qualified Code(s): N17.9 - Acute kidney failure, unspecified - Plan continue antibiotics, out of bed/ambulate, DVT proph w/SCDs Called Insurance twice yesterdayabout denial to SNIF but no luck -: pt will be Dced to home w HH.discussed w her -: encouraged to get care provider for home -: Can Dc when HH arranged.hemodynamically stable * . Review of Systems - Review of Systems Constitutional: negative: fever, chills, sweats, weakness, malaise, other ENT: negative: Ear Pain, Ear Discharge, Nose Pain, Nose Discharge, Nose Congestion, Mouth Pain, Mouth Swelling, Throat Pain, Throat Swelling, Other Respiratory: negative: Cough, Dry, Shortness of Breath, Hemoptysis, SOB with Excertion, Pleuritic Pain, Sputum, Wheezing Cardiovascular: negative: chest pain, palpitations, orthopnea, paroxysmal nocturnal dyspnea, edema, light headedness, other Gastrointestinal: negative: Nausea, Vomiting, Abdominal Pain, Diarrhea, Constipation, Melena, Hematochezia, Other Genitourinary: negative: Dysuria, Frequency, Incontinence, Hematuria, Retention , Other Musculoskeletal: negative: Neck Pain, Shoulder Pain, Arm Pain, Back Pain, Hand Pain, Leg Pain, Foot Pain, Other Neurological: negative: Weakness, Numbness, Incoordination, Change in Speech, Confusion, Seizures, Other - Medications/Allergies Allergies/Adverse Reactions: Allergies Allergy/AdvReac Type Severity Reaction Status Date / Time codeine Allergy Verified 12/30/17 22:48 morphine Allergy Verified 12/30/17 22:48 Penicillins Allergy Verified 12/30/17 22:48 Medications: Current Medications Acetaminophen (Tylenol) 650 mg PO Q4H PRN PRN Reason: Headache/Fever or Pain Divalproex Sodium (Depakote) 500 mg PO HS [facility] Last Admin: 01/11/18 22:12 Dose: 500 mg Divalproex Sodium (Depakote) 250 mg PO DAILY [facility] Last Admin: 01/12/18 07:52 Dose: 250 mg Famotidine (Pepcid) 20 mg PO DAILY [facility] Last Admin: 01/12/18 07:52 Dose: 20 mg Guaifenesin/Dextromethorphan (Robitussin Dm) 15 ml PO Q4H PRN PRN Reason: Cough Last Admin: 01/02/18 21:23 Dose: 15 ml Heparin Sodium (Porcine) (Heparin) 5,000 units SC BID [facility] Last Admin: 01/12/18 07:58 Dose: 5,000 units [place] Carbonate ([place] Carbonate) 300 mg PO QAM-WM [facility] Last Admin: 01/12/18 07:58 Dose: 300 mg Ondansetron HCl (Zofran) 4 mg IVP Q6H PRN PRN Reason: Nausea/Vomiting Rifaximin (Xifaxan) 550 mg PO BID [facility] Last Admin: 01/12/18 07:52 Dose: 550 mg Risperidone (Risperidone) 3 mg PO HS [facility] Last Admin: 01/12/18 00:42 Dose: 3 mg Saccharomyces Boulardii (Florastor) 250 mg PO DAILY [facility] Last Admin: 01/12/18 07:51 Dose: 250 mg Sertraline HCl (Zoloft) 50 mg PO DAILY [facility] Last Admin: 01/12/18 07:52 Dose: 50 mg
[2018-01-12] MEDS: Divalproex Sodium DR 500 MG TAB PO SCH (19:55)
[2018-01-13 05:16] LABS: Albumin 3.4 g/dL (3.5-5.0); Anion Gap 11 mmol/L (10-20); BUN (Urea Nitrogen) 16 mg/dL (9.8-20.1); BUN/Creatinine Ratio 21.62; Calc. Creatinine Clearance 76 mL/min (70-130); Calcium 9.8 mg/dL (7.8-10.44); Carbon Dioxide 25 mmol/L (22-29); Chloride 107 mmol/L (98-107); Estimated GFR-MDRD 80; Glucose 98 mg/dL (70-105); Phosphorus 3.2 mg/dL (2.3-4.7); Sodium 139 mmol/L (136-145)
[2018-01-13] MEDS: Saccharomyces boulardii 250 MG CAP PO SCH (07:58)
[2018-01-13] MEDS: Lithium Carbonate 150 MG CAP PO SCH (07:58)
[2018-01-13] MEDS: Divalproex Sodium 250 MG (DR) TAB PO SCH (07:59)
[2018-01-13] MEDS: Famotidine 20 MG TAB PO SCH (07:59)
[2018-01-13] MEDS: Rifaximin 550 MG TAB PO SCH ×2 (07:59→22:41)
[2018-01-13] MEDS: Heparin 5,000 UNITS/ML VIAL SC SCH ×2 (08:00→22:42)
--- NOTE | 2018-01-13 11:17 | PDOC.PN ---
- Subjective Encounter Start Date: 01/13/18 Encounter Start Time: 11:14 Subjective: no new complaints -: feels well - Objective Resuscitation Status: Resuscitation Status FULL:Full Resuscitation MAR Reviewed: Yes Vital Signs & Weight: Vital Signs (12 hours) Pulse Ox 01/13/18 08:00 93 L Weight Admit Weight 129 lb 4.8 oz Weight 131 lb 8 oz I&O: 01/12/18 01/13/18 01/14/18 06:59 06:59 06:59 Intake Total 1750 2960 Output Total 2350 500 Balance -600 2460 Result Diagrams: 12/31/17 03:55 01/13/18 03:37 Phys Exam - Physical Examination Constitutional: NAD HEENT: PERRLA, moist MMs, sclera anicteric, oral pharynx no lesions Neck: no nodes, no JVD, supple, full ROM Respiratory: no wheezing, no rales, no rhonchi, clear to auscultation bilateral Cardiovascular: RRR, no significant murmur Gastrointestinal: soft, non-tender, no distention, positive bowel sounds Musculoskeletal: no edema, pulses present Neurological: non-focal, normal sensation, moves all 4 limbs Psychiatric: normal affect, A&O x 3 Dx/Plan (1) Clostridium difficile colitis Status: Acute Comment: on PO vanco and Xifaxan (2) Bipolar disorder Code(s): F31.9 - BIPOLAR DISORDER, UNSPECIFIED Status: Chronic Qualifiers: Active/Remission status: remission status unspecified Qualified Code(s): F31.9 - Bipolar disorder, unspecified (3) Dyslipidemia Code(s): E78.5 - HYPERLIPIDEMIA, UNSPECIFIED Status: Chronic (4) Hypertension Code(s): I10 - ESSENTIAL (PRIMARY) HYPERTENSION Status: Chronic Qualifiers: Hypertension type: essential hypertension (5) Tobacco abuse Code(s): Z72.0 - TOBACCO USE Status: Chronic (6) Substance abuse Code(s): F19.10 - OTHER PSYCHOACTIVE SUBSTANCE ABUSE, UNCOMPLICATED Status: Chronic Comment: pcp and cocaine, but denies (7) Acute renal failure Status: Resolved Qualifiers: Acute renal failure type: unspecified Qualified Code(s): N17.9 - Acute kidney failure, unspecified - Plan out of bed/ambulate, DVT proph w/SCDs prescriptions sent for family to pickle sorter -: Pt will be Dced once CM makes sure family will get py's her meds -: denies for rehab as walking independently. -: Info w/b provided for Care provider Services -: Hd stable * . Review of Systems - Review of Systems Constitutional: weakness. negative: fever, chills, sweats, malaise, other ENT: negative: Ear Pain, Ear Discharge, Nose Pain, Nose Discharge, Nose Congestion, Mouth Pain, Mouth Swelling, Throat Pain, Throat Swelling, Other Respiratory: negative: Cough, Dry, Shortness of Breath, Hemoptysis, SOB with Excertion, Pleuritic Pain, Sputum, Wheezing Cardiovascular: negative: chest pain, palpitations, orthopnea, paroxysmal nocturnal dyspnea, edema, light headedness, other Gastrointestinal: negative: Nausea, Vomiting, Abdominal Pain, Diarrhea, Constipation, Melena, Hematochezia, Other Genitourinary: negative: Dysuria, Frequency, Incontinence, Hematuria, Retention , Other Musculoskeletal: negative: Neck Pain, Shoulder Pain, Arm Pain, Back Pain, Hand Pain, Leg Pain, Foot Pain, Other Neurological: negative: Weakness, Numbness, Incoordination, Change in Speech, Confusion, Seizures, Other - Medications/Allergies Allergies/Adverse Reactions: Allergies Allergy/AdvReac Type Severity Reaction Status Date / Time codeine Allergy Verified 12/30/17 22:48 morphine Allergy Verified 12/30/17 22:48 Penicillins Allergy Verified 12/30/17 22:48 Medications: Current Medications Acetaminophen (Tylenol) 650 mg PO Q4H PRN PRN Reason: Headache/Fever or Pain Divalproex Sodium (Depakote) 500 mg PO HS [facility] Last Admin: 01/12/18 19:55 Dose: 500 mg Divalproex Sodium (Depakote) 250 mg PO DAILY [facility] Last Admin: 01/13/18 07:59 Dose: 250 mg Famotidine (Pepcid) 20 mg PO DAILY [facility] Last Admin: 01/13/18 07:59 Dose: 20 mg Guaifenesin/Dextromethorphan (Robitussin Dm) 15 ml PO Q4H PRN PRN Reason: Cough Last Admin: 01/02/18 21:23 Dose: 15 ml Heparin Sodium (Porcine) (Heparin) 5,000 units SC BID [facility] Last Admin: 01/13/18 08:00 Dose: 5,000 units [place] Carbonate ([place] Carbonate) 300 mg PO QAM-WM [facility] Last Admin: 01/13/18 07:58 Dose: 300 mg Ondansetron HCl (Zofran) 4 mg IVP Q6H PRN PRN Reason: Nausea/Vomiting Rifaximin (Xifaxan) 550 mg PO BID [facility] Last Admin: 01/13/18 07:59 Dose: 550 mg Risperidone (Risperidone) 3 mg PO HS [facility] Last Admin: 01/12/18 19:56 Dose: 3 mg Saccharomyces Boulardii (Florastor) 250 mg PO DAILY [facility] Last Admin: 01/13/18 07:58 Dose: 250 mg Sertraline HCl (Zoloft) 50 mg PO DAILY [facility] Last Admin: 01/13/18 08:00 Dose: 50 mg
[2018-01-13] MEDS ORDERED: Vancomycin HCl 25 MG/ML Oral PO SCH (13:47)
[2018-01-13] MEDS: Vancomycin HCl 25 MG/ML Oral PO SCH ×2 (16:20→22:49)
[2018-01-13] MEDS ORDERED: Melatonin 3 MG TAB PO PRN (22:01)
[2018-01-13] MEDS: risperiDONE 3 MG TAB PO SCH (22:41)
[2018-01-13] MEDS: Divalproex Sodium DR 500 MG TAB PO SCH (22:41)
[2018-01-14 05:54] LABS: Albumin 3.3 g/dL (3.5-5.0); Anion Gap 13 mmol/L (10-20); BUN (Urea Nitrogen) 14 mg/dL (9.8-20.1); BUN/Creatinine Ratio 17.28; Calc. Creatinine Clearance 70 mL/min (70-130); Carbon Dioxide 26 mmol/L (22-29); Chloride 105 mmol/L (98-107); Estimated GFR-MDRD 72; Glucose 114 mg/dL (70-105); Phosphorus 3.3 mg/dL (2.3-4.7); Potassium 4.4 mmol/L (3.5-5.1); Sodium 140 mmol/L (136-145)
[2018-01-14] MEDS: Famotidine 20 MG TAB PO SCH (08:18)
[2018-01-14] MEDS: Saccharomyces boulardii 250 MG CAP PO SCH (08:18)
[2018-01-14] MEDS: Divalproex Sodium 250 MG (DR) TAB PO SCH (08:18)
[2018-01-14] MEDS: Vancomycin HCl 25 MG/ML Oral PO SCH ×2 (08:18→12:59)
[2018-01-14] MEDS: Lithium Carbonate 150 MG CAP PO SCH (08:19)
[2018-01-14 09:26] VITALS: BP 124/65; TEMP 97.6
[2018-01-14] MEDS: Heparin 5,000 UNITS/ML VIAL SC SCH (11:01)
--- NOTE | 2018-01-14 23:27 | DIS ---
DATE OF ADMISSION: 12/30/2017 DATE OF DISCHARGE: 01/14/2018 CONDITION AT THE TIME OF DISCHARGE: Stable and improved. DISCHARGE DIAGNOSES: 1. Clostridium difficile colitis. 2. Generalized weakness and deconditioning. 3. History of bipolar disorder. 4. Drug abuse. 5. Dyslipidemia. 6. Hypertension. 7. Tobacco abuse. 8. Acute renal failure, resolved. DISCHARGE MEDICATIONS: Vancomycin 125 mg p.o. q.i.d. for 10 more days and resume home medications as follows: Depakote 1 tablet daily, risperidone 3 mg at bedtime, lithium carbonate 600 mg at bedtime, Zoloft 50 mg daily, Depakote 1 tablet at bedtime, trazodone 100 mg at bedtime, lithium carbonate 300 mg in the morning, Florastor 250 mg daily, lisinopril 10 mg daily, amlodipine 10 mg daily, Tylenol a s needed. DISCHARGE DISPOSITION: Home with home health. PRIMARY CARE PHYSICIAN: Jonna Zimmerman, physician household assistant. DISCHARGE FOLLOWUP: 1. Primary care physician. 2. Gastroenterology, Dr. Lg Castañeda. HISTORY OF PRESENT ILLNESS: Ms. Bustos is a 62-year-old female with past medical history of hyp ertension, bipolar disorder, diet controlled diabetes, dyslipidemia and COPD who presented to the [facility] room after she was found down on the floor covered with feces by her gnosticist members and neighb ors. She was found to be disoriented and very lethargic. Upon presentation, she had a BUN of 123, c reatinine of 7.24 with serum bicarbonate of 8. She reported that she has significant nausea, vomitin g and diarrhea going on for about 2 weeks. She was admitted to [facility] for acute renal failure and perla re metabolic acidosis. Nephrology was consulted. Stool cultures were sent as well. Dietitian was c onsulted as the patient was found to be severely malnourished. Please see admission history and [facility] ical for further detail. HOSPITAL COURSE: The patient had gradual improvement in her symptoms. She tested positive for C. di ff. Because of severe dehydration and acute renal failure, she was started on both vancomycin q.i.d. orally as well as rifaximin. Gastroenterology, Dr. Castañeda was also consulted. Difficult to control diarrhea. He recommended checking of various viral serologies as well as iron saturation, alpha 1 tr ypsin level, smooth muscle and mitochondrial antibody and alpha fetoprotein and continuation of vanco mycin for a total of 14 days. Nephrology saw the patient and followed the patient along. She was resuscitated with IV fluids with complete resolution of acute renal failure. Slowly, she was moved towards discharge. Rehab was tried, but denied despite me trying to call to do a peer to peer. I was never connected to a physician. She was ambulatory in the hallways with the physical therapist initially and later independently so rehab was denied, but home health was arrange d for her. APS has already been involved in the care of this patient. The patient reports that she is dependent on her care for a niece who helps her out. Niece was contacted by the case sealer and discharge plan was discussed with them and they verbalized understanding. As of now, the patient has no specific needs. She has demonstrated that she is able to take care of herself in the hospital. She is eating well and ambulatory and her diarrhea has almost subsided. She was given prescriptions for the antibiotic, which her niece has already collected and she will started them as soon as she ge ts home. All discharge plan was discussed with the patient who verbalized understanding. At this time, I do n ot see any mental or physical barriers for her discharge, though the social barriers were dealt with as best as we could do. [facility] with the patient [facility] She was seen and examined prior to discharge. PHYSICAL EXAMINATION: VITAL SIGNS: Her vital signs are stable. Blood pressure 124/65, saturating 95% on room air, tempera ture 97.6, heart rate 76. GENERAL: No acute distress. CHEST: Clear to auscultation bilaterally. Rate and rhythm is regular. She was discharged and a taxi voucher was provided to her with the help of the case sealer. LABORATORY EXAMINATION: Her antimitochondrial antibody and smooth muscle antibodies were unremarkabl e. Hepatitis panel was negative as well. Please note that upon presentation, she did test positive for phencyclidine and cocaine. Her lithium level was 1.284. Discharge BUN 14, discharge creatinine 0.81. Her rifaximin has been stopped at the time of discharge. She will continue the vancomycin and follow up with primary care physician in 1-2 weeks. Total time spent in the discharge of this patient, 35 minutes. The patient's stay was prolonged because of denial for the rehabilitation and the question about safe discharge. As of my evaluation this morning, I feel that the patient is able to take care of hersel f. She will continue to depend upon her niece for getting her groceries, etc. She remains high risk for readmission because of social reasons.
== END 2018-01-14 13:58 | disposition home health service (06) | DRG 871 ==
LOC: ERS 17:29 → IMCU/EMU 18:57 → 2NO 01-01 22:22 → T4-A 01-02 18:45
PROVIDERS: ADMIT Internal Medicine; ATTEND Internal Medicine
DX: A41.9 Sepsis, unspecified organism (principal); G92 Toxic encephalopathy; N17.9 Acute kidney failure, unspecified; E87.2 Acidosis; A04.72 Enterocolitis due to Clostridium difficile, not specified as recurrent; N30.00 Acute cystitis without hematuria; E86.0 Dehydration; F31.9 Bipolar disorder, unspecified; K74.60 Unspecified cirrhosis of liver; E87.6 Hypokalemia; D64.9 Anemia, unspecified; R60.9 Edema, unspecified; E11.9 Type 2 diabetes mellitus without complications; I10 Essential (primary) hypertension; J44.9 Chronic obstructive pulmonary disease, unspecified; E78.5 Hyperlipidemia, unspecified; R82.5 Elevated urine levels of drugs, medicaments and biological substances; F20.9 Schizophrenia, unspecified; F17.210 Nicotine dependence, cigarettes, uncomplicated; Z88.5 Allergy status to narcotic agent; Z88.0 Allergy status to penicillin
CPT/HCPCS: 36415; 36416; 51702; 70450; 71045; 80053; 80069; 80178; 80202; 80306; 80307; 81003; 81015; 82103; 82104; 82105; 82140; 82330; 82550; 82553; 82803; 83516; 83540; 83550; 83605; 83690; 83735; 84443; 84484; 85025; 86704; 86706; 86709; 86803; 87040; 87045; 87046; 87086; 87324; 87340; 87449; 87493; 87899; 93005; 93970; 94760; 96361; 96365; 96367; G8978-GP-CM; G8979-GP-CK; G8987-GO-CL; G8988-GO-CJ; J0692; J1644; J3370; J3480; J7050; J7070

== ENCOUNTER 2018-01-16 22:21 | Emergency (ER) | payer MEDICARE | END 2018-01-16 22:23 | disposition home or self-care (01) | LOC: ERS 22:21 | DX: G89.29 Other chronic pain (principal); M54.9 Dorsalgia, unspecified | CPT/HCPCS: 99283 ==